=== PATIENT | male | born 1960 | race Caucasian/White ===

== ENCOUNTER 2017-12-22 09:00 | Inpatient (IN) | payer OTHER ==
--- NOTE | 2017-12-13 21:40 | HP ---
HISTORY AND PHYSICAL: DATE OF ADMISSION/SURGERY: 12/22/17 DATE OF OFFICE VISIT: 12/12/17 SURGEON: Kelly Turner MD * (DICTATED BY MARIXA HAWK) PROCEDURE: Right total hip arthroplasty. CHIEF COMPLAINT: Right hip pain. HISTORY OF PRESENT ILLNESS: Mr. Yung is a 57-year-old gentleman with complaints of right hip pain. He has failed conservative treatment and elected to proceed with a right total hip arthroplasty. PAST MEDICAL HISTORY: High cholesterol, hypertension, sleep apnea, and a history of foot drop. PAST SURGICAL HISTORY: ORIF of the right hip, tonsillectomy, muscle transfer to the right foot, skull fracture repair. CURRENT MEDICATIONS: 1. Hydrochlorothiazide 25 mg daily. 2. Metoprolol 50 mg daily. 3. Irbesartan 150 mg daily. 4. Omeprazole 20 mg daily. ALLERGIES: No known drug allergies. FAMILY HISTORY: Coronary artery disease, COPD, and stroke. SOCIAL HISTORY: This 57-year-old lives with his . He does not smoke or use drugs. He does report approximately 6 beers a day. REVIEW OF SYSTEMS: A complete 14-point review of systems was reviewed with the patient. It was all negative or noncontributory. PHYSICAL EXAMINATION GENERAL: He is well developed, well nourished, in no acute distress. VITAL SIGNS: He stands 5 feet 11 inches tall, weighs 259 pounds. His blood pressure is 128/72, his heart rate is 80. HEENT: Normocephalic, atraumatic. NECK: Supple. No palpable lymph nodes. PULMONARY: His lungs are clear to auscultation. CARDIO: Regular rate and rhythm. Strong S1, S2. ABDOMEN: Soft, nontender, nondistended. NEUROLOGICAL: He is alert and oriented x3. MUSCULOSKELETAL: Right lower extremity, the skin is intact. There are no open wounds or abrasions. He walks with an antalgic type gait favoring his right hip. He has decreased internal and external rotation of the right hip. He has a 2+ dorsalis pedis pulse. Intact sensation. He actually has 4/5 strength of his right ankle dorsiflexion. He has a history of a foot drop. ASSESSMENT AND PLAN: Mr. Yung is a 57-year-old gentleman with continued complaints of right hip pain. He has failed conservative treatment and elected to proceed with a right total hip arthroplasty. Surgery is scheduled for 12/22/[address] Turner discussed the risks and benefits of the surgery at today's visit and all of his questions were answered. He will follow up with Dr. Turner in 2 weeks after the surgery. MARIXA HAWK [id number]/[facility] #: [id number] JERZY
--- NOTE | 2018-04-14 18:31 | HP ---
HISTORY AND PHYSICAL: DATE OF ADMISSION/SURGERY: 04/25/18 DATE OF OFFICE VISIT: 04/14/18 SURGEON: Kelly Turner MD * (DICTATED BY MARIXA HAWK) PROCEDURE: Right total hip arthroplasty. CHIEF COMPLAINT: Right hip pain. HISTORY OF PRESENT ILLNESS: Mr. Yung is a 57-year-old gentleman with posttraumatic arthritis of the right hip. He has failed conservative treatment and elected to proceed with a right total hip arthroplasty. PAST MEDICAL HISTORY: Hypertension, sleep apnea, high cholesterol, and coronary artery disease. PAST SURGICAL HISTORY: Right hip ORIF, tonsillectomy, muscle transfer to the right foot, and surgery for skull fracture. CURRENT MEDICATIONS: 1. Metoprolol 50 mg daily. 2. Omeprazole 20 mg daily. 3. Avapro 150 mg daily. 4. Hydrochlorothiazide 50 mg 2 tabs daily. 5. Cinnamon. 6. Pravastatin sodium 40 mg daily. ALLERGIES: No known drug allergies. FAMILY HISTORY: COPD, stroke, and coronary artery disease. SOCIAL HISTORY: He is a 57-year-old gentleman, lives with his . He does not smoke or use drugs. Uses occasional alcohol. REVIEW OF SYSTEMS: A complete 14-point review of systems was reviewed with the patient. It was positive for GERD. He denies history of DVT, PE, hepatitis, HIV , or anesthesia problems. PHYSICAL EXAMINATION GENERAL: He is well developed, well nourished, in no acute distress. VITAL SIGNS: He stands 71 inches tall, weighs 251 pounds. His blood pressure is 120/68 and his heart rate is 96. HEENT: Normocephalic, atraumatic. NECK: Supple. No palpable lymph nodes. PULMONARY: The lungs are clear to auscultation bilaterally. CARDIO: Regular rate and rhythm. Strong S1, S2. ABDOMEN: Soft, nontender, nondistended. NEUROLOGICAL: He is alert and oriented x3. MUSCULOSKELETAL: Right lower extremity: The skin is intact. There are no open wounds or abrasions. He walks with an antalgic-type gait favoring his right hip. He has decreased internal and external rotation of the right hip. 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 He has a 2+ dorsalis pedis pulse. ASSESSMENT AND PLAN: Mr. Yung is a 57-year-old gentleman with posttraumatic arthritis of the right hip. He has failed conservative treatment and elected to proceed with a right total hip arthroplasty. The surgery is scheduled for 04/25/[address] Turner discussed the risks and benefits of the surgery at today's visit and all of his questions were answered. He will follow up with Dr. Turner 2 weeks after the surgery. MARIXA HAWK [id number]/[facility] #: [id number] MTDMolina
[2018-04-24] MEDS ORDERED: Buffered Lidocaine 1% SYRIN* 1 ML/SYRINGE INTRADERM ONE (12:06)
[2018-04-25] MEDS ORDERED: Acetaminophen IV 1GM/100ML * 1,000 MG/100 ML VIAL IVPB ONE (06:00)
[2018-04-25] MEDS ORDERED: celeCOXIB CAP* 200 MG PO ONE (06:00)
[2018-04-25] MEDS ORDERED: Lactated Ringers 1000 ML Bag* 1,000 ML IV SCH (06:00)
[2018-04-25] MEDS ORDERED: Gabapentin CAP(*) 300 MG PO ONE (06:00)
[2018-04-25] MEDS ORDERED: Dexamethasone IV* 4 MG/ML 1 ML (4 MG) IV SLOW PU ONE (06:00)
--- OUTSIDE RECORDS SUMMARY | 2018-04-25 10:13 | XMS REPORT | Continuity of Care Document ---
:1960 External Reference #:[id number] Author Name Queenie Thompson Care Team Providers Name Role Phone Julissa Lee MD Primary Care Physician Unavailable Payers Type Date Identification Numbers Payment Provider Subscriber Policy Number: [id number] [facility] Zeb Yung PayID: [id number] [address] [place] [address] Advance Directives Description No Information Available Problems Date Description Provider Status Onset: 08/08/2014 Hypersomnia with sleep apnea Bryon Snowden M.D. Active Onset: 09/18/2014 Obstructive sleep apnea syndrome Inna Styles DNP, RN, Active [facility]- Onset: 10/31/2017 Localized, primary osteoarthritis Kelly Turner M.D. Active Onset: 10/31/2017 Acquired genu valgum Kelly Turner M.D. Active Onset: 10/31/2017 Localized, primary osteoarthritis Kelly Turner M.D. 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 Cigarette Use Quit 21 Years Ago Tobacco Use Start: Unknown Chewing tobacco after stopped smoking ; chewed for 8 years Smoking Status Reviewed: 04/14/18 Chewing tobacco after stopped smoking ; chewed for 8 years ETOH Use Occasionally consumes 4-5 times a week alcohol Tobacco Use Start: Unknown End: Patient is a former Unknown smoker Exercise Type/Frequency Exercises sporadically Allergies, Adverse Reactions, Alerts Description No Known Drug Allergies Medications Medication Date Status Form Strength Qnty SIG Indications Ordering Provider Metoprolol Succinate 12/23 Active Tablet 50mg 1 tab by Unknown mouth daily Omeprazole 12/23 Active Tablet 20mg 1 tab by mouth daily Avapro Active Tablets 150mg 1 tab by Unknown /0000 mouth daily Hydrochlorothiazide Active Tablets 50mg 2 by Unknown /0000 mouth every day Cinnamon Active Capsules 1000mg 1 capsule Unknown /0000 by mouth daily C Pap Active wears Unknown /0000 nightly Pravastatin Sodium Active Tablets 40mg 1 tab hs Jesus, / Julissa Chaudhry MD Compression 02/07 Hx Misc Wear M17.11 Jean-Claude Stockings during Drew, - the day, M.D. 12/21 remove at night Hydrochlorothiazide 12/23 Hx 25mg as Unknown directed - 12/20 Irbesartan 12/23 Hx 150mg as directed - 12/20 Aspirin 12/23 Hx 325mg every day by mouth - 10/30 Cinnamon 12/23 Hx 1000mg every day by mouth - 10/30 Flax Seed Oil 12/23 Hx 1400mg every day by mouth - 10/30 Vitamin D-3 12/23 Hx 2000mg every day by mouth - 09/14 Naproxen 02/13 Hx Tablets 500mg 40tab 1 tablet s with food Johnny, - po bid M.D. 09/14 Aspirin Hx Tablets 325mg take 1 by Unknown /0000 mouth - daily 12/21 Pravastatin Sodium Hx Tablets 20mg take one Unknown /0000 tablet by - mouth at 12/21 bedtime Medications Administered in Office Medication Date Status Form Strength Qnty SIG Indications Ordering Provider Depomedrol Administered Injection Kelly 40MG 018 Tommy Turner Depomedrol Administered Injection Kelly 80MG 015 Tommy Turner Influenza Administered Injection Unknown Virus Vaccine 014 Depomedrol Administered Injection Kelly 80MG 013 Tommy Turner Immunizations Description No Information Available Vital Signs Date Vital Result Comment 04/14/2018 10:40am Height 71 inches 5'11" Weight 257.00 lb Heart Rate 96 /min BP Systolic 128 mmHg BP Diastolic 68 mmHg Respiratory Rate 16 /min Body Temperature 98.3 F Pain Level 2 BMI (Body Mass Index) 35.8 kg/m2 04/10/2018 10:13am Height 71 inches 5'11" Weight 260.00 lb BP Systolic 138 mmHg BP Diastolic 80 mmHg Pain Level 3 BMI (Body Mass Index) 36.3 kg/m2 03/27/2018 9:24am Height 71 inches 5'11" Weight 257.00 lb Heart Rate 100 /min BP Systolic Sitting 116 mmHg BP Diastolic Sitting 80 mmHg Respiratory Rate 14 /min O2 % BldC Oximetry 93 % BMI (Body Mass Index) 35.8 kg/m2 03/03/2018 3:06pm Height 71 inches 5'11" Weight 263.00 lb BP Systolic 144 mmHg BP Diastolic 83 mmHg Respiratory Rate 16 /min Pain Level 8 BMI (Body Mass Index) 36.7 kg/m2 02/23/2018 2:42pm Height 71 inches 5'11" Weight 267.00 lb with shoes Heart Rate 80 /min BP Systolic Sitting 196 mmHg lue reg cuff BP Diastolic Sitting 98 mmHg lue reg cuff BP Systolic Standing 190 mmHg lue reg cuff BP Diastolic Standing 94 mmHg lue reg cuff BMI (Body Mass Index) 37.2 kg/m2 12/22/2017 3:05pm Height 71 inches 5'11" Weight 265.00 lb w/boots Heart Rate 70 /min BP Systolic Sitting 130 mmHg Lue lg cuff BP Diastolic Sitting 92 mmHg Lue lg cuff BMI (Body Mass Index) 37.0 kg/m2 Ejection Fraction 69% NLM 12/09/17 12/12/2017 9:08am Height 71 inches 5'11" Weight 259.00 lb Heart Rate 80 /min BP Systolic 128 mmHg BP Diastolic 72 mmHg BMI (Body Mass Index) 36.1 kg/m2 12/01/2017 9:03am Height 71 inches 5'11" Weight 261.50 lb Heart Rate 76 /min BP Systolic Sitting 164 mmHg Rue large cuff BP Diastolic Sitting 102 mmHg Rue large cuff Respiratory Rate 20 /min O2 % BldC Oximetry 94 % On Ra BMI (Body Mass Index) 36.5 kg/m2 11/07/2017 4:22pm Height 71 inches 5'11" Weight 265.00 lb Heart Rate 72 /min BP Systolic 154 mmHg BP Diastolic 90 mmHg BMI (Body Mass Index) 37.0 kg/m2 10/31/2017 3:24pm Height 71.5 inches 5'11.50" Weight 268.00 lb Heart Rate 72 /min BP Systolic 140 mmHg BP Diastolic 84 mmHg BMI (Body Mass Index) 36.9 kg/m2 09/15/2016 3:43pm Height 72 inches 6'0" Heart Rate 84 /min BP Systolic Sitting 130 mmHg BP Diastolic Sitting 90 mmHg Respiratory Rate 16 /min Pain Level 0 O2 % BldC Oximetry 96 % 08/05/2015 3:29pm Height 72 inches 6'0" Weight 274.00 lb Heart Rate 79 /min BP Systolic Sitting 142 mmHg BP Diastolic Sitting 82 mmHg Respiratory Rate 16 /min O2 % BldC Oximetry 97 % BMI (Body Mass Index) 37.2 kg/m2 03/17/2015 10:24am Height 72 inches 6'0" Weight 278.00 lb Pain Level 3 BMI (Body Mass Index) 37.7 kg/m2 02/07/2015 2:38pm Height 72 inches 6'0" Weight 278.00 lb Heart Rate 69 /min BP Systolic 137 mmHg BP Diastolic 81 mmHg Pain Level 6 BMI (Body Mass Index) 37.7 kg/m2 02/04/2015 3:23pm Height 72 inches 6'0" Heart Rate 78 /min BP Systolic 138 mmHg BP Diastolic 74 mmHg Respiratory Rate 14 /min O2 % BldC Oximetry 98 % 12/24/2014 3:06pm Height 72 inches 6'0" Weight 278.00 lb Heart Rate 82 /min BP Systolic Sitting 142 mmHg BP Diastolic Sitting 82 mmHg Respiratory Rate 20 /min O2 % BldC Oximetry 97 % BMI (Body Mass Index) 37.7 kg/m2 08/08/2014 3:21pm Height 72 inches 6'0" Weight 284.12 lb Heart Rate 74 /min BP Systolic Sitting 150 mmHg BP Diastolic Sitting 98 mmHg Body Temperature 98.9 F O2 % BldC Oximetry 97 % BMI (Body Mass Index) 38.5 kg/m2 Neck Circumference in inches 18.5 Results Test Date Facility Test Result H/L Range Note Urine Culture And 04/04/2018 [facility] Urine Culture SEE RESULT [address] [place] [address] [phone] Type & Screen 12/12/2017 [facility] Patient Blood O Negative [address] Type [place]THA [place]olson [id number] [phone] Antibody Screen NEGATIVE 1 SEE RESULT BELOW Name: ZEB YUNG : [address]: Julissa Lee MD Acct: [id number] Unit: [id number] AGE: 57 Location: [facility] Re04/04/18 SEX: M Status: REG REF SPEC: [id number] YOON: 04/04/18-1550 [facility] DR: Julissa Lee MD REQ: [id number] RECD: 04/04/18 STATUS: COMP [facility] DR: Kelly Turner MD _ SOURCE: URINE SPDESC: ORDERED: Urine Culture COMMENTS: [id number] ferrer top urine vacutainer Copy Result to: Kelly TURNER ([id number]) Urine Source: Clean Catch Procedure Result Reported Site Urine Culture Final 04/05/18- 1630 ML No Growth (<1,000 CFU/mL) * ML - Main Lab . END OF REPORT DEPARTMENT OF PATHOLOGY, [address] [place] [address] Aristeo Saab M.D. Director [facility] # [id number] 2 PAIN IN RIGHT HIP, BILATERAL PRIMARY OSTEOARTHRITI Procedures Date Code Description Status 01/16/2018 07702 ECHO Transthoracic, Real-Time 2D With Doppler And Color Completed Flow 01/16/2018 69559 ECHO Transthoracic, Real-Time 2D With Doppler And Color Completed Flow 12/22/2017 37186 EKG Tracing & Interpretation Completed 12/09/2017 05741 Treadmill Interp/Report Only Completed 12/09/2017 72446 Stress Test Supervsn W/Out I/R Completed 10/31/201779367 Inject/Drain Joint/Bursa Major W/O US Completed 02/07/201529131 Inject/Drain Joint/Bursa Major W/O US Completed 09/18/2014 64117 Polysomnography Sleep Staging 4+ Parameters W/Cpap Completed 03/23/2013 91173 Rad Exam; Hip Unilat Comp Completed 03/23/2013 36944 Rad Exam; Pelvis Completed 02/13/2013 32960 Rad Exam; Knee Comp Completed 02/13/2013 00405 Rad Exam; Knee Comp Completed 02/13/2013 64033 Xray Knee 3 Views Completed 02/13/2013 56763 Xray Knee 3 Views Completed 02/13/2013 41314 Inject/Drain Joint/Bursa Major W/O US Completed Encounters Type Date Location Provider Dx Diagnosis Office Visit 04/10/2018 Orthopedic Tere Pearce, D21.11 [place] neoplm of 10:00a Services Of AndreyAForest Yusuf. connctv/soft tiss of r upper limb, inc shldr R22.31 Localized swelling, mass and lump, right upper limb Office Visit 03/27/2018 Pulmonology And Inna G47.33 Obstructive sleep 9:30a Sleep Services Of SERA Styles, SHANNON, apnea (adult) [facility] JAGDEEP-BC (pediatric) Z68.35 Body mass index (BMI) 35.0-35.9, adult Office Visit 03/03/2018 3:00p Orthopedic Services Kelly Turner, M25.551 Pain in right Of C.M.A. M.D. hip M16.51 Unilateral post-traumatic osteoarthritis, right hip Office Visit 02/23/2018 3:00p Rosie Ton S. E66.9 Obesity, Cardiology Of Tommy Cervantes unspecified Melissa G47.33 Obstructive sleep apnea (adult) (pediatric) I10 Essential (primary) hypertension Z01.810 Encounter for preprocedural cardiovascular examination I25.10 Athscl heart disease of [place] coronary artery w/o ang pctrs I77.819 Aortic ectasia, unspecified site M16.0 Bilateral primary osteoarthritis of hip E78.5 Hyperlipidemia, unspecified Office Visit 12/22/2017 3:40p [facility] Ton S. I10 Essential Tommy Cervantes (primary) hypertension R94.31 Abnormal electrocardiogram [ECG] [EKG] E78.4 Other hyperlipidemia E66.9 Obesity, unspecified G47.33 Obstructive sleep apnea (adult) (pediatric) Z01.810 Encounter for preprocedural cardiovascular examination Office Visit 12/01/2017 Pulmonology And Inna G47.33 Obstructive sleep 9:30a Sleep Services Of SERA Styles RN, apnea (adult) [facility] JAGDEEP-BC (pediatric) I10 Essential (primary) hypertension Z68.36 Body mass index (BMI) 36.0-36.9, adult Office Visit 11/07/2017 3:45p Orthopedic Kelly M17.0 Bilateral primary Services Of Tommy Turner osteoarthritis of C.M.A. knee M25.551 Pain in right hip M21.061 Valgus deformity, not elsewhere classified, right knee M16.0 Bilateral primary osteoarthritis of hip M16.51 Unilateral post-traumatic osteoarthritis, right hip Office Visit 10/31/2017 2:45p Orthopedic Services Kelly Turner, M25.562 Pain in left Of C.M.A. M.D. knee M25.561 Pain in right knee M25.462 Effusion, left knee M25.461 Effusion, right knee M17.0 Bilateral primary osteoarthritis of knee M21.061 Valgus deformity, not elsewhere classified, right knee M25.551 Pain in right hip M25.552 Pain in left hip M16.0 Bilateral primary osteoarthritis of hip M16.51 Unilateral post-traumatic osteoarthritis, right hip M16.12 Unilateral primary osteoarthritis, left hip M17.12 Unilateral primary osteoarthritis, left knee Office Visit 09/15/2016 Pulmonology And Inna G47.33 Obstructive sleep 3:30p Sleep Services Of SERA Styles RN, apnea (adult) [facility] JAGDEEP-BC (pediatric) Office Visit 08/05/2015 Pulmonology And Inna G47.33 Obstructive sleep 3:30p Sleep Services Of SERA Styles RN, apnea (adult) [facility] JAGDEEP-BC (pediatric) Office Visit 03/17/2015 Orthopedic Kelly Turner, M17.11 Unilateral 10:30a Services Of Tommy primary C.M.AForest osteoarthritis, right knee 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 knee M12.551 Traumatic arthropathy, right hip Office Visit 02/04/2015 Pulmonology And Inna G47.33 Obstructive sleep 3:30p Sleep Services Of SERA Styles apnea (adult) Melissa ORTEGA, JAGDEEP-BC (pediatric) Office Visit 12/24/2014 Pulmonology And Inna G47.33 Obstructive sleep 3:15p Sleep Services Of SERA Styles, apnea (adult) Elastic Attacher Coverstitch RN, JAGDEEP-BC (pediatric) Office Visit 08/08/2014 Pulmonology And Bryon SK. 780.53 Hypersomnia W/ 3:30p Sleep Services Of Tommy Snowden Sleep Apnea Elastic Attacher Coverstitch Unspecified Office Visit 03/23/2013 Orthopedic Kelly Turner, 715.16 Osteoarthrosis 9:30a Services Of Tommy Localized Prim C.M.A. Lower Leg 715.95 Osteoarthrosis Unspec Genlzd Or Localized Pelvic & Thigh Office Visit 02/13/2013 9:30a Orthopedic Kelly 715.16 Osteoarthrosis Services Of Tommy Turner Localized Prim Lower C.M.A. Leg Plan of Treatment Future Appointment(s):05/08/2018 2:15 pm - Kelly Turner M.D. at [facility]opedic [facility]04/25/2018 2:00 pm - Ziggy Bowens PA-C at [facility]04/25/2018 2:00 pm - MARIXA Valencia at [facility]04/25/2018 2:00 pm - Kelly Turner M.D. at [facility]05/31/2018 3:00 pm - Inna Styles DNP, RN, DIRECTOR LOAN-BC at Pulmonology And [facility]04/14/2018 - Kelly Turner M.D.M25.551 Pain in right hipFollow up:Follow up: 2 weeks after fposvxjP24.51 Unilateral post-traumatic osteoarthritis, right hip
--- OUTSIDE RECORDS SUMMARY | 2018-04-25 10:13 | XMS REPORT | Continuity of Care Document ---
:1960 External Reference #:[id number] Author Name Katelin Zabala Care Team Providers Name Role Phone Julissa Lee MD Primary Care Physician Unavailable Payers Type Date Identification Numbers Payment Provider Subscriber Policy Number: [id number] Lt[employer], Located Within [facility] Zeb Yung PayID: [id number] [address] [place] [address] Advance Directives Description No Information Available Problems Date Description Provider Status Onset: 08/08/2014 Hypersomnia with sleep apnea Bryon Snowden M.D. 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 Cigarette Use Quit 21 Years Ago Tobacco Use Start: Unknown Chewing tobacco after stopped smoking ; chewed for 8 years Smoking Status Reviewed: 04/10/18 Chewing tobacco after stopped smoking ; chewed [...] Available Vital Signs Date Vital Result Comment 04/10/2018 10:13am Height 71 inches 5'11" Weight [...] H/L Range Note Urine Culture And 04/04/2018 [facility] Urine Culture SEE RESULT [address] [place] [address] [phone] Type & Screen 12/12/2017 [facility] Patient Blood O Negative [address] [place] [address] [phone] Antibody Screen NEGATIVE 1 SEE RESULT BELOW Name: ZEB YUNG : [address]: Julissa Lee MD Acct: [id number] Unit: [id number] AGE: 57 Location: [facility] Re04/04/18 SEX: M Status: REG REF SPEC: [id number] YOON: 04/04/18 [facility] DR: Julissa Lee MD REQ: [id number] RECD: 04/04/18 STATUS: MIKAELA JOHNSON DR: Kelly Turner MD _ SOURCE: URINE [facility]: ORDERED: Urine Culture COMMENTS: [id number] ferrer top urine vacutainer Copy Result to: Kelly TURNER ([id number]) Urine Source: Clean Catch Procedure Result Reported Site Urine Culture Final 04/05/18- 1630 ML No Growth (<1,000 CFU/mL) * ML - Main Lab . END OF REPORT DEPARTMENT OF PATHOLOGY, [address] [place] [address] Aristeo Saab M.D. Director [facility] # [id number] 2 PAIN IN RIGHT HIP, BILATERAL PRIMARY OSTEOARTHRITI Procedures Date Code Description Status 01/16/2018 03269 ECHO Transthoracic, Real-Time 2D With Doppler And Color Completed Flow 01/16/2018 87823 ECHO Transthoracic, Real-Time 2D With Doppler And Color Completed Flow 12/22/2017 82151 EKG Tracing & Interpretation Completed 12/09/2017 74405 Treadmill Interp/Report Only Completed 12/09/2017 64842 Stress Test Supervsn W/Out I/R Completed 10/31/201714944 Inject/Drain Joint/Bursa Major W/O US Completed 02/07/201550159 Inject/Drain Joint/Bursa Major W/O US Completed 09/18/2014 35764 Polysomnography Sleep Staging 4+ Parameters W/Cpap Completed 03/23/2013 95261 Rad Exam; Hip Unilat Comp Completed 03/23/2013 33825 Rad Exam; Pelvis Completed 02/13/2013 88958 Rad Exam; Knee Comp Completed 02/13/2013 29732 Rad Exam; Knee Comp Completed 02/13/2013 51989 Xray Knee 3 Views Completed 02/13/2013 31431 Xray Knee 3 Views Completed 02/13/2013 19122 Inject/Drain Joint/Bursa Major W/O US Completed Encounters Type Date Location Provider Dx Diagnosis Office Visit 03/27/2018 Pulmonology And Inna Styles, G47.33 Obstructive sleep 9:30a [facility] RN, [facility]- apnea (adult) [facility] (pediatric) Z68.35 Body mass index (BMI) 35.0-35.9, adult Office Visit 03/03/2018 3:00p [facility] Kelly Turner, M25.551 Pain in right Of [facility] M.D. 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 E66.9 Obesity, Cardiology Of Tommy Cervantes unspecified [facility] G47.33 Obstructive sleep apnea (adult) (pediatric) I10 Essential (primary) hypertension Z01.810 Encounter for preprocedural cardiovascular examination I25.10 Athscl heart disease of [place] coronary artery w/o ang pctrs I77.819 Aortic ectasia, unspecified site M16.0 Bilateral primary osteoarthritis of hip E78.5 Hyperlipidemia, unspecified Office Visit 12/22/2017 3:40p [facility] [place] S. I10 Essential Tommy Cervantes (primary) hypertension R94.31 Abnormal electrocardiogram [ECG] [EKG] E78.4 Other hyperlipidemia E66.9 Obesity, unspecified G47.33 Obstructive sleep apnea (adult) (pediatric) Z01.810 Encounter for preprocedural cardiovascular examination Office Visit 12/01/2017 Pulmonology And Inna G47.33 Obstructive sleep 9:30a [facility] Styles RN, apnea (adult) [facility]- (pediatric) I10 Essential (primary) hypertension Z68.36 Body mass index (BMI) 36.0-36.9, adult Office Visit 11/07/2017 3:45p Orthopedic Kelly M17.0 Bilateral primary Services Of Tommy Turner osteoarthritis of [facility]. 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 M.D. [...] Services Of [facility] Styles RN, apnea (adult) [facility] JAGDEEP-JUSTIN (pediatric) Office Visit 08/05/2015 Pulmonology And Inna G47.33 Obstructive sleep 3:30p [facility] Styles RN, apnea (adult) [facility] JAGDEEP-JUSTIN (pediatric) Office Visit 03/17/2015 Orthopedic Kelly Turner, M17.11 Unilateral 10:30a Services Of Tommy primary C.M.A. 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 780.53 Hypersomnia W/ 3:30p [facility] Snowden Sleep Apnea [facility] Unspecified Office Visit 03/23/2013 Orthopedic Kelly Turner, 715.16 Osteoarthrosis 9:30a Services Of Tommy Localized Prim C.M.A. Lower Leg 715.95 Osteoarthrosis Unspec Genlzd Or Localized Pelvic & Thigh Office Visit 02/13/2013 9:30a Orthopedic Kelly 715.16 Osteoarthrosis Services Of Tommy Turner Localized Prim Lower C.M.A. Leg Plan of Treatment Future Appointment(s):04/25/2018 2:00 pm - Ziggy Bowens PA-C at [facility]04/25/2018 2:00 pm - MARIXA Valencia at [facility]04/25/2018 2:00 pm - Kelly Turner M.D. at [facility]04/14/2018 9:45 am - Kelly Turner M.D. at [facility]05/31/2018 3:00 pm - Inna Styles DNP, RN, MAINTENANCE MACHINE REPAIRER-BC at [facility]04/10/2018 - Tere Pearce M.D.D21.11 Benign neoplasm of connective and other soft tissue of rightFollow up:Follow up : As needed
--- OUTSIDE RECORDS SUMMARY | 2018-04-25 10:14 | XMS REPORT ---
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 Active Onset: 05/03/2011 Essential hypertension Taylor Payton M.D. Active Onset: 05/03/2011 Obesity Taylor Payton M.D. Active Onset: 07/06/2011 Impaired fasting glycaemia Taylor Payton M.D. Active Onset: 07/06/2011 Hyperlipidemia Taylor Payton M.D. Active Onset: 03/02/2018 Other hyperlipidemia Julissa Lee M.D. Active Onset: 10/13/2017 Peripheral venous insufficiency Julissa Lee M.D. Active Family History Date Family Member(s) Problem(s) Comments Father due to [place] () - at age 66 Children None First Brother Hypertension First Brother 54 First Sister IBS? lives in [place]. First Sister 50 Paternal Grandfather due to Stroke () Social History Type Date Description Comments Marital Status Has been 1 time Lives With Spouse Sleep Typically sleeps 6 hours a night Occupation [employer] Cigarette Use Former Cigarette Smoker 1 quit at age 23 Pack Daily ETOH Use Currently consumes alcohol a Case of beer a week. (24) Less now 06/09/2013. Drinking less during the week. now drinking 6-12 a week. still at 6-12 beer 07/15/15. Now only 2 a week 03/2018. Smoking Patient is a former smoker Daily Caffeine Consumes on average 2 cups of black. coffee per day Exercise Type/Frequency Exercises regularly 4-5 days a week on the elliptical and free weights. Started Yoga. Allergies, Adverse Reactions, Alerts Date Description Reaction Status Severity Comments 05/03/2011 NKDA active Medications Medication Date Status Form Strength Qnty SIG Indications Ordering Provider Pravastatin Sodium 03/02/ Active Tablets 40mg 30tabs take one Julissa L. 2017 tablet Jesus, by mouth M.D. at bedtime Avapro 07/13/ Active Tablets 150mg 90tabs take 1 Julissa L. 2012 tablet Jesus, by mouth M.D. every day Hydrochlorothiazide 03/24/ Active Tablets 25mg 180tab take 2 I10 Julissa L. 2011 s tablet Jesus, by mouth M.D. every day R60.0 Metoprolol Succinate 05/03/2011 Active Tablets ER 50mg 90tabs take 1 Julissa L. ER 24HR tablet by Jesus, mouth M.D. every day Omeprazole 05/03/[address] 20mg 90caps take 1 Julissa L. capsule Jesus, by mouth M.D. every day Pravastatin Sodium 12/03/2017 - Hx Tablets 20mg 90tabs 1 by Julissa L. 03/02/2018 mouth Jesus, every day M.D. Ketoconazole 06/21/2016 - Hx Cream 2% 45gm apply B Julissa L. 03/17/2017 thin 3 Jesus, layer 5 M.D. twice a . day to 4 right knee and bottow of left foot Altabax 06/21/2016 - Hx Ointment 1% 15gm apply I Julissa L. 03/17/2017 twice 8 Jesus, daily to 7 M.D. front of . left leg 2 for up to 1 week. Circ-Aid Compression 04/20/2016 - Hx use as R Julissa Chaudhry Wraps 03/17/2017 directed. 6 Jesus, 0 M.D. . 0 Ketoconazole 04/08/2016 - Hx Shampoo 2% 120ml soak B Xochitl 03/17/2017 feet in 2 3 Amanda, tsp in 5 STONE SPLITTER warm . water 3 daily Ketoconazole 04/03/2016 - Hx Cream 2% 60gm apply B Xochitl 03/17/2017 every day 3 Amanda, -bid to 5 STONE SPLITTER affected . area 3 Cephalexin 04/03/2016 - Hx Capsules 500mg 42caps 1 po tid L Xochitl 04/19/2016 x 14days 0 Amanda, 3 STONE SPLITTER . 1 1 6 Tramadol HCL 04/03/2016 - Hx Tablets 50mg 60tabs 2 every L Xochitl 03/17/2017 12h as 0 Amanda, needed 3 STONE SPLITTER pain . 1 1 6 Cephalexin 10/23/2012 - Hx Capsules 500mg 21caps 1 po tid E Nguyen 12/08/2012 x 7 days 9 Brown, TIRE MAN 0 6 . 4 Nasonex 09/07/2012 - Hx Suspension 50mcg 17g 1 spray 9 Julissa Chaudhry 09/09/2014 /Act each 9 thuy Lee 5 M.DForest twice . daily 3 3 month supply Avapro 04/03/2012 - Hx Tablets 75mg 90tabs 1 po qd Julissa Chaudhry 07/13/2012 Tommy Lee Nasonex 11/30/2011 - Hx Suspension 50mcg 3mos 2 sprays Leann 07/13/2012 /Act each thuy Zavala Afnp-C qd Hydrochlorothiazide 05/03/2011 - Hx Capsules 12.5m 1 po qd Family 05/03/2011 [facility] Aspirin 05/03/2011 - Hx Tablets 325mg 1 po qd Family 04/04/2018 [facility] Lisinopril 05/03/2011 - Hx Tablets 20mg 90tabs 1 po qd Taylor Miller 07/13/2012 Tommy Payton Immunizations CPT Code Status Date Vaccine Lot # [id number] Given 07/13/2012 Tdap Tetanus, W Pertussis [id number] Vital Signs Date Vital Result Comment 04/04/2018 BP Systolic 128 mmHg BP Diastolic 86 mmHg Heart Rate 97 /min Body Temperature 97.3 F Respiratory Rate 16 /min O2 % BldC Oximetry 96 % Height 71 inches 5'11" Weight 255.00 lb BMI (Body Mass Index) 35.6 kg/m2 03/02/2018 BP Systolic 142 mmHg BP Diastolic 86 mmHg Heart Rate 80 /min Body Temperature 98.9 F Respiratory Rate 17 /min Height 71 inches 5'11" Weight 263.00 lb BMI (Body Mass Index) 36.7 kg/m2 12/03/2017 BP Systolic 136 mmHg BP Diastolic 86 mmHg Heart Rate 70 /min Body Temperature 98.6 F Respiratory Rate 17 /min Height 71 inches 5'11" Weight 261.38 lb BMI (Body Mass Index) 36.5 kg/m2 10/13/2017 BP Systolic 124 mmHg BP Diastolic 80 mmHg Heart Rate 80 /min Body Temperature 98.0 F Respiratory Rate 18 /min Height 71 inches 5'11" Weight 263.00 lb BMI (Body Mass Index) 36.7 kg/m2 03/18/2017 BP Systolic 130 mmHg BP Diastolic 80 mmHg Heart Rate 78 /min Body Temperature 97.9 F Respiratory Rate 16 /min Height 70.5 inches 5'10.50" Weight 279.00 lb BMI (Body Mass Index) 39.5 kg/m2 07/10/2016 BP Systolic 160 mmHg BP Diastolic 80 mmHg Heart Rate 72 /min Body Temperature 99.0 F Respiratory Rate 16 /min Height 70.5 inches 5'10.50" Weight 283.12 lb BMI (Body Mass Index) 40.0 kg/m2 06/21/2016 BP Systolic 154 mmHg BP Diastolic 86 mmHg BP Systolic Recheck 140 mmHg BP Diastolic Recheck 80 mmHg Heart Rate 90 /min Body Temperature 99.3 F Respiratory Rate 16 /min Height 70.5 inches 5'10.50" Weight 280.12 lb BMI (Body Mass Index) 39.6 kg/m2 04/24/2016 BP Systolic 124 mmHg BP Diastolic 70 mmHg Heart Rate 78 /min Respiratory Rate 16 /min Height 70.5 inches 5'10.50" Weight 281.00 lb BMI (Body Mass Index) 39.7 kg/m2 04/20/2016 BP Systolic 130 mmHg BP Diastolic 82 mmHg Heart Rate 72 /min Body Temperature 97.5 F Height 70.5 inches 5'10.50" Weight 282.25 lb BMI (Body Mass Index) 39.9 kg/m2 04/08/2016 BP Systolic 130 mmHg BP Diastolic 78 mmHg Heart Rate 76 /min Body Temperature 98.0 F Respiratory Rate 18 /min Height 70.5 inches 5'10.50" 04/03/2016 BP Systolic 120 mmHg BP Diastolic 80 mmHg Heart Rate 72 /min Body Temperature 97.9 F Respiratory Rate 18 /min Height 70.5 inches 5'10.50" Weight 285.00 lb BMI (Body Mass Index) 40.3 kg/m2 11/18/2015 BP Systolic 138 mmHg BP Diastolic 80 mmHg Heart Rate 68 /min Body Temperature 97.9 F Respiratory Rate 18 /min Height 70.5 inches 5'10.50" Weight 283.00 lb BMI (Body Mass Index) 40.0 kg/m2 07/15/2015 BP Systolic 128 mmHg BP Diastolic 80 mmHg Heart Rate 68 /min Body Temperature 98.1 F Respiratory Rate 18 /min Height 70.5 inches 5'10.50" Weight 276.00 lb BMI (Body Mass Index) 39.0 kg/m2 09/09/2014 BP Systolic 132 mmHg BP Diastolic 80 mmHg Heart Rate 80 /min Body Temperature 97.5 F Respiratory Rate 18 /min Height 71 inches 5'11" Weight 283.00 lb BMI (Body Mass Index) 39.5 kg/m2 08/29/2014 BP Systolic 126 mmHg BP Diastolic 80 mmHg Heart Rate 64 /min Body Temperature 98.4 F Respiratory Rate 18 /min Height 71 inches 5'11" Weight 278.00 lb BMI (Body Mass Index) 38.8 kg/m2 07/11/2014 BP Systolic 120 mmHg BP Diastolic 80 mmHg Heart Rate 80 /min Body Temperature 98.2 F Respiratory Rate 18 /min Height 71 inches 5'11" Weight 279.00 lb BMI (Body Mass Index) 38.9 kg/m2 11/09/2013 BP Systolic 130 mmHg BP Diastolic 80 mmHg Heart Rate 84 /min Body Temperature 97.9 F Height 71.5 inches 5'11.50" Weight 279.00 lb BMI (Body Mass Index) 38.4 kg/m2 06/07/2013 BP Systolic 138 mmHg BP Diastolic 80 mmHg Heart Rate 68 /min Body Temperature 98.1 F Respiratory Rate 18 /min Height 71.5 inches 5'11.50" Weight 273.38 lb BMI (Body Mass Index) 37.6 kg/m2 03/08/2013 BP Systolic 150 mmHg BP Diastolic 92 mmHg Heart Rate 64 /min Body Temperature 98.5 F Respiratory Rate 16 /min Height 71.5 inches 5'11.50" Weight 273.00 lb BMI (Body Mass Index) 37.5 kg/m2 02/09/2013 BP Systolic 134 mmHg BP Diastolic 70 mmHg Heart Rate 68 /min Body Temperature 98.9 F Respiratory Rate 18 /min Height 71.5 inches 5'11.50" Weight 277.00 lb BMI (Body Mass Index) 38.1 kg/m2 12/08/2012 BP Systolic 126 mmHg BP Diastolic 82 mmHg Heart Rate 72 /min Body Temperature 98.6 F Respiratory Rate 16 /min Height 71.5 inches 5'11.50" Weight 271.38 lb BMI (Body Mass Index) 37.3 kg/m2 10/23/2012 BP Systolic 152 mmHg BP Diastolic 92 mmHg Heart Rate 78 /min Body Temperature 99.3 F Height 71.5 inches 5'11.50" Weight 271.50 lb BMI (Body Mass Index) 37.3 kg/m2 09/07/2012 BP Systolic 140 mmHg BP Diastolic 80 mmHg Heart Rate 72 /min Body Temperature 98.5 F Respiratory Rate 18 /min Height 71.5 inches 5'11.50" Weight 273.00 lb BMI (Body Mass Index) 37.5 kg/m2 07/13/2012 BP Systolic 160 mmHg BP Diastolic 102 mmHg BP Systolic Recheck 130 mmHg BP Diastolic Recheck 90 mmHg Heart Rate 72 /min Body Temperature 98.1 F Respiratory Rate 16 /min Height 71.5 inches 5'11.50" Weight 271.00 lb BMI (Body Mass Index) 37.3 kg/m2 Right Visual Acuity Distance 20/20 Left Visual Acuity Distance 20/25 03/24/2012 BP Systolic 140 mmHg BP Diastolic 90 mmHg Heart Rate 72 /min Body Temperature 97.5 F Height 70.75 inches 5'10.75" measured Weight 272.00 lb BMI (Body Mass Index) 38.2 kg/m2 11/30/2011 BP Systolic 110 mmHg BP Diastolic 80 mmHg Heart Rate 72 /min Body Temperature 98.2 F Height 70.75 inches 5'10.75" measured Weight 268.00 lb BMI (Body Mass Index) 37.6 kg/m2 11/03/2011 BP Systolic 130 mmHg BP Diastolic 86 mmHg Heart Rate 60 /min Body Temperature 98.9 F Height 70.75 inches 5'10.75" measured Weight 263.00 lb BMI (Body Mass Index) 36.9 kg/m2 09/02/2011 BP Systolic 134 mmHg BP Diastolic 76 mmHg Heart Rate 60 /min Body Temperature 98.4 F Height 70.75 inches 5'10.75" measured Weight 259.00 lb BMI (Body Mass Index) 36.4 kg/m2 07/06/2011 BP Systolic 140 mmHg BP Diastolic 84 mmHg Heart Rate 72 /min Body Temperature 97.6 F Height 70.75 inches 5'10.75" measured Weight 265.00 lb BMI (Body Mass Index) 37.2 kg/m2 05/22/2011 BP Systolic 144 mmHg BP Diastolic 82 mmHg Heart Rate 66 /min Body Temperature 97.6 F Height 70.75 inches 5'10.75" measured Weight 256.00 lb BMI (Body Mass Index) 36.0 kg/m2 05/03/2011 BP Systolic 166 mmHg BP Diastolic 90 mmHg Heart Rate 72 /min Body Temperature 98.9 F Height 70.75 inches 5'10.75" measured Weight 258.00 lb BMI (Body Mass Index) 36.2 kg/m2 Results Test Date Test Result H/L Range Note Laboratory test finding 04/04/2018 Hemoglobin A1c ([facility]ma) 5.3% % 4.1-5.7 CBC Electronic ([facility] New) 04/04/2018 WBC 6.48 4.0-10.0 RBC 4.47 3.93-6.0 Hemoglobin (Fma/CMC/CTX) 14.7 g/dL 12.0-17.0 Hematocrit (Fma/CMC/CTX) 41.8 % 35.0-50.0 Mean Corpuscular Vol 93.5 fL 80-95 Mean Corpuscular Hemoglobin 32.9 pg High 25.6-32.2 Mean Corpuscular Hemo Concen 35.2 g/dL 32.2-36.0 Platelets 256 10^3/ul 163-400 RDW-CV 12.0 11.6-14.4 Mean Platelet Volume 9.5 fL 8.0-12.4 Absolute Neutrophils BLD 3.96 1.56-6.13 Absolute Lymphocytes 1.77 1.18-3.74 Absolute Monocytes BLD Auto 0.65 0.24-0.82 Absolute Eos Blood 0.03 Low 0.04-0.54 Absolute Basophils 0.04 0.01-0.08 Neutrophil % 61.1 % 34.0-70.0 Lymph% 27.3 % 20.0-52.0 Monocytes % 10.0 % 5.0-12.0 Eos % 0.5 % Low 0.7-7.0 Basophil% 0.6 % 0-1.2 Ua - Micro ([facility]) 04/04/2018 Appearance clear Color yellow Glucose, Urine (a/CMC/CTX) neg Bilirubin neg Ketones trace SP Grav >=1.030 Blood neg PH 5.5 Protein neg Urobil 0.2 Nitrite neg Leukocytes (Fma/CMC/Centrex) neg Hyaline 8-10 /Lpf Granular - /Lpf WBC (a,Centrex) 0-1 RBC - Mucus small amount /Lpf Epith - /Lpf Bacteria - /Hpf Amorphous - /Lpf Crystals, Fluid (a/CMC/CTX) - Z#Comments - Laboratory test finding 04/04/2018 Creatine Kinase <pending> 38-174 Ua - Micro ([facility]) 02/04/2018 Appearance clear Color yellow Glucose, Urine (a/CMC/CTX) negative Bilirubin negative Ketones trace SP Grav 1.015 Blood trace-lysed PH 5.5 Protein negative Urobil 0.2 Nitrite negative Leukocytes (Fma/CMC/Centrex) negative Hyaline - /Lpf Granular - /Lpf WBC (a,Centrex) - RBC 0-1 Mucus SM AMT /Lpf Epith - /Lpf Bacteria - /Hpf Amorphous - /Lpf Crystals, Fluid (Fma/CMC/CTX) - Z#Comments - CBC Electronic ([facility]) 02/04/2018 WBC 5.64 4.0-10.0 RBC 4.82 3.93-6.0 Hemoglobin (Fma/CMC/CTX) 15.7 g/dL 12.0-17.0 Hematocrit (a/CMC/CTX) 46.1 % 35.0-50.0 Mean Corpuscular Vol 95.6 fL High 80-95 Mean Corpuscular Hemoglobin 32.6 pg High 25.6-32.2 Mean Corpuscular Hemo Concen 34.1 g/dL 32.2-36.0 Platelets 182 10^3/ul 163-400 RDW-CV 12.3 11.6-14.4 Mean Platelet Volume 9.4 fL 8.0-12.4 Absolute Neutrophils BLD 3.65 1.56-6.13 Absolute Lymphocytes 1.19 1.18-3.74 Absolute Monocytes BLD Auto 0.64 0.24-0.82 Absolute Eos Blood 0.10 0.04-0.54 Absolute Basophils 0.03 0.01-0.08 Neutrophil % 64.8 % 34.0-70.0 Lymph% 21.1 % 20.0-52.0 Monocytes % 11.3 % 5.0-12.0 Eos % 1.8 % 0.7-7.0 Basophil% 0.5 % 0-1.2 Laboratory test finding 02/04/2018 CK 172 U/L 38-174 1 Lipid Profile 02/04/2018 Cholesterol 267 mg/dL High 120-200 Triglycerides 134 mg/dL 30-200 HDL Cholesterol 83 mg/dL High 30-70 LDL (Calculated) 157 CALC High 0-129 VLDL Cholesterol 27 mg/dL 0-50 HDL Risk Factor 3.2 CALC 0.0-4.4 Comprehensive Metabolic Prof 02/04/2018 Sodium 139 mEq/L 134-149 Potassium 3.9 mEq/L 3.6-5.5 Chloride 96 mEq/L 94-112 Carbon Dioxide 30 mEq/L 21-32 Glucose 104 mg/dL 70-105 BUN 13 mg/dL 6-26 Creatinine 1.0 mg/dL 0.6-1.4 BUN/Creat Ratio 13.0 CALC 8.0-36.0 Calcium 8.9 mg/dL 8.6-10.2 Total Protein 7.0 g/dL 6.4-8.3 Albumin 4.4 g/dL 3.8-5.5 Globulin 2.6 g/dL 2.0-4.8 A/G Ratio 1.7 CALC 0.6-2.3 Alk. Phosphatase 60 U/L 22-95 Alt (SGPT) 32 U/L 7-35 Ast (Sgot) 30 U/L 5-34 Total Bilirubin 1.1 mg/dL 0.2-1.3 GFR Non- >60 ml/min/1.73m^ >=60 GFR >60 ml/min/1.73m^ >=60 Type & Screen 12/12/2017 Patient Blood Type O Negative 2 Antibody Screen NEGATIVE 2 Comp Metabolic Panel 12/03/2017 Sodium 137 mmol/L 135-145 Potassium 4.0 mmol/L 3.5-5.0 Chloride 96 mmol/L Low 101-111 Co2 Carbon Dioxide 31 mmol/L 22-32 Anion Gap 10 mmol/L 2-11 Calcium 9.2 mg/dL 8.6-10.3 Albumin 4.0 g/dL 3.2-5.2 Total Bilirubin 1.30 mg/dL High 0.2-1.0 Glucose 106 mg/dL High 70-100 Blood Urea Nitrogen 16 mg/dL 6-24 Creatinine 0.97 mg/dL 0.67-1.17 BUN/Creatinine Ratio 16.5 8-20 Total Protein 6.9 g/dL 6.4-8.9 Globulin 2.9 g/dL 2-4 Albumin/Globulin Ratio 1.4 1-3 Alkaline Phosphatase 61 U/L 34-104 Alt 32 U/L 7-52 Ast 40 U/L High 13-39 Egfr Non- 80.1 >60 Egfr 96.9 >60 3 Lipid Profile (Trig/Chol/HDL) 12/03/2017 Triglycerides 168 mg/dL 4 Cholesterol 288 mg/dL 5 HDL Cholesterol 70.7 mg/dL 6 LDL Cholesterol 184 mg/dL 7 Inr/Protime 12/03/2017 Inr 0.86 0.77-1.02 Laboratory test finding 12/03/2017 Partial Thrombo 34.9 seconds 26.0- 36.3 8 Time PTT Urine Culture And 12/03/2017 Urine Culture SEE RESULT BELOW 9 Sensitivities Urinalysis Profile 12/03/2017 Urine Color Yellow Urine Appearance Clear Urine Specific [place] 1.017 1.010-1.030 Urine pH 5.0 5-9 Urine Urobilinogen Negative Negative Urine Ketones Negative Negative Urine Protein Negative Negative Urine Leukocytes Negative Negative Urine Blood Negative Negative Urine Nitrite Negative Negative Urine Bilirubin Negative Negative Urine Glucose Negative Negative Urine White Blood Cell Absent Absent Urine Red Blood Cell Absent Absent Urine Bacteria Absent Absent Laboratory test finding 10/13/2017 Inr ([facility]ma) 1.0 0.9-1.1 Hemoglobin A1c ([facility]ma) 5.4 % 4.1-5.7 Laboratory test finding 07/01/2017 TSH 0.92 mIU/L 0.50-6.00 PSA 0.9 ng/mL 0.0-4.0 Laboratory test finding 07/01/2017 Hemoglobin A1c ([facility]ma) 5.5 % 4.1-5.7 Laboratory test finding 07/01/2017 LDL, Direct 148 mg/dL High 0-130 CBC Electronic [facility] 07/01/2017 WBC 6.8 x10^3/UL 4.0-10.0 RBC 4.67 x10^6/UL 3.93-6.00 HGB 15.2 g/dL 12.0-17.0 HCT 44 % 35-50 MCV 93.6 fL 80.0-95.0 MCH 32.5 pg High 25.6-32.2 MCHC 34.8 g/dL 32.2-36.0 RDW-CV 12.8 % 11.6-14.4 PLT 181 x10^3/UL 163-400 MPV 9.9 fL 9.4-12.4 [place]# 4.63 x10^3/UL 1.56-6.13 Lymph# 1.39 x10^3/UL 1.18-3.74 [place]# 0.62 x10^3/UL 0.24-0.82 Eos # 0.1 x10^3/UL 0.0-0.5 Baso # 0.04 x10^3/UL 0.01-0.08 [place]% 67.8 % 34.0-70.0 Lymph % 20.4 % 20.0-52.0 [place]% 9.1 % 5.0-12.0 Eos% 1.5 % 0.7-7.0 Baso% 0.6 % 0.1-1.2 Lipid Profile 07/01/2017 Cholesterol 259 mg/dL High 120-200 Triglycerides 286 mg/dL High 30-200 HDL Cholesterol 54 mg/dL 30-70 LDL (Calculated) 148 CALC High 0-129 VLDL Cholesterol 57 mg/dL High 0-50 HDL Risk Factor 4.8 CALC High 0.0-4.4 Comprehensive Metabolic Prof 07/01/2017 Sodium 135 mEq/L 134-149 Potassium 4.0 mEq/L 3.6-5.5 Chloride 95 mEq/L 94-112 Carbon Dioxide 26 mEq/L 21-32 Glucose 131 mg/dL High 70-105 10 BUN 16 mg/dL 6-26 Creatinine 1.0 mg/dL 0.6-1.4 BUN/Creat Ratio 16.0 CALC 8.0-36.0 Calcium 9.2 mg/dL 8.6-10.2 Total Protein 6.9 g/dL 6.4-8.3 Albumin 3.9 g/dL 3.8-5.5 Globulin 3.0 g/dL 2.0-4.8 A/G Ratio 1.3 CALC 0.6-2.3 Alk. Phosphatase 66 U/L 22-95 Alt (SGPT) 42 U/L High 7-35 Ast (Sgot) 38 U/L High 5-34 Total Bilirubin 1.1 mg/dL 0.2-1.3 GFR Non- >60 ml/min/1.73m^ >=60 GFR >60 ml/min/1.73m^ >=60 Laboratory test finding 07/13/2016 Inr ([facility]ma) 1.0 0.9-1.1 Basic Metabolic Profile 07/13/2016 Sodium 134 mEq/L 134-149 Potassium 4.1 mEq/L 3.6-5.5 Chloride 96 mEq/L 94-112 Carbon Dioxide 31 mEq/L 21-32 Glucose 104 mg/dL 70-105 BUN 21 mg/dL 6-26 Creatinine 1.1 mg/dL 0.6-1.4 BUN/Creat Ratio 19.1 CALC 8.0-36.0 Calcium 8.9 mg/dL 8.6-10.2 GFR Non- >60 ml/min/1.73m^ >=60 GFR >60 ml/min/1.73m^ >=60 Complete Blood Count 07/13/2016 WBC 6.0 x10^3/UL 3.6-9.6 RBC 4.94 x10^6/UL 3.90-5.70 HGB 15.3 g/dL 12.1-17.2 HCT 46 % 36-50 MCV 92.0 fL 82.2-97.4 MCH 30.9 pg 27.6-33.3 MCHC 33.5 g/dL 33.0-35.5 RDW 14.8 % High 11.6-13.7 PLT 186 x10^3/UL 150-400 MPV 6.9 fL Low 7.4-10.4 Gran # 4.0 x10^3/UL 1.5-7.2 Lymph# 1.7 x10^3/UL 0.7-4.9 [place]# 0.3 x10^3/UL 0.1-0.9 Gran % 65.6 % 42.2-75.2 Lymph % 29.0 % 20.5-51.1 [place]% 5.4 % 1.7-9.3 Laboratory test finding 04/03/2016 Uric Acid 8.1 mg/dL 2.5-9.2 Laboratory test finding 04/03/2016 Hemoglobin A1c ([facility]) 5.5 % 4.1-5.7 CBC Electronic ([facility]) 04/03/2016 WBC 5.9 3.6-9.6 RBC 4.86 3.90-5.70 Hemoglobin (Fma/CMC/CTX) 15.2 g/dL 12.1 - 17.2 Hematocrit (Fma/CMC/CTX) 46.4 % 36.1 - 50.3 Platelets 196 10^3/ul 150-400 Lymph% 25.2 % 17.0-48.0 Mixed% 4.7 Neutrophils % 70.1 Mean Corpuscular Vol 95 82.2-97.4 Mean Corpuscular Hemoglobin 31.3 27.6-33.3 Mean Corpuscular Hemo Concen 32.8 32.0-36.0 RDW 14.5 High 11.6-13.7 Mean Platelet Volume 6.6 5.5-11.0 Laboratory test finding 07/15/2015 Hemoglobin A1c ([facility]ma) 5.7 % 4.1-5.7 Laboratory test finding 07/15/2015 PSA 0.8 ng/mL 0.0-4.0 CBC Electronic ([facility]) 07/05/2015 WBC 5.7 3.6-9.6 RBC 4.72 3.90-5.70 Hemoglobin (Fma/CMC/CTX) 15.0 g/dL 12.1 - 17.2 Hematocrit (Fma/CMC/CTX) 45.7 % 36.1 - 50.3 Platelets 194 10^3/ul 150-400 Lymph% 25.9 % 17.0-48.0 Mixed% 3.9 Neutrophils % 70.2 Mean Corpuscular Vol 97 82.2-97.4 Mean Corpuscular Hemoglobin 31.8 27.6-33.3 Mean Corpuscular Hemo Concen 32.8 32.0-36.0 RDW 14.2 High 11.6-13.7 Mean Platelet Volume 7.3 5.5-11.0 Laboratory test finding 07/05/2015 TSH 1.36 mIU/L 0.50-6.00 Free T4 1.21 ng/dL 0.75-1.54 Lipid Profile 07/05/2015 Cholesterol 213 mg/dL High 120-200 Triglycerides 150 mg/dL 30-200 HDL Cholesterol 44 mg/dL 30-70 LDL (Calculated) 139 CALC High 0-129 VLDL Cholesterol 30 mg/dL 0-50 HDL Risk Factor 4.8 CALC High 0.0-4.4 Comprehensive Metabolic Prof 07/05/2015 Sodium 143 mEq/L 134-149 Potassium 4.0 mEq/L 3.6-5.5 Chloride 103 mEq/L 94-112 Carbon Dioxide 32 mEq/L 21-32 Glucose 119 mg/dL High 70-105 11 BUN 16 mg/dL 6-26 Creatinine 1.1 mg/dL 0.6-1.4 BUN/Creat Ratio 14.5 CALC 8.0-36.0 Calcium 8.9 mg/dL 8.6-10.2 Total Protein 6.6 g/dL 6.4-8.3 Albumin 3.8 g/dL 3.8-5.5 Globulin 2.8 g/dL 2.0-4.8 A/G Ratio 1.4 CALC 0.6-2.3 Alk. Phosphatase 62 U/L 22-95 Alt (SGPT) 29 U/L 7-35 Ast (Sgot) 26 U/L 5-34 Total Bilirubin 0.6 mg/dL 0.2-1.3 GFR Non- >60 ml/min/1.73m^ >=60 GFR >60 ml/min/1.73m^ >=60 Laboratory test finding 07/05/2015 Vitamin D25 73 30-100 12 Laboratory test finding 08/16/2014 Inr 0.92 0.78-1.07 Activated Partial Thrombo Time 35.3 seconds 26.0-36.3 CBC Auto Diff 08/16/2014 White Blood Count 10.0 10^3/uL 4.8-10.8 Red Blood Count 5.03 10^6/uL 4.0-5.4 Hemoglobin 15.5 g/dL 14.0-18.0 Hematocrit 47 % 42-52 Mean Corpuscular Volume 93 fL 80-94 Mean Corpuscular Hemoglobin 31 pg 27-31 Mean Corpuscular HGB Conc 33 g/dL 31-36 Red Cell Distribution Width 14 % 10.5-15 Abs Neutrophils 6.8 10^3/uL 1.5-7.7 Abs Lymphocytes 2.4 10^3/uL 1.0-4.8 Abs Monocytes 0.6 10^3/uL 0-0.8 Abs Eosinophils 0.1 10^3/uL 0-0.6 Abs Basophils 0 10^3/uL 0-0.2 Abs Nucleated RBC 0.02 10^3/uL Granulocyte % 68.6 % 38-83 Lymphocyte % 23.6 % Low 25-47 Monocyte % 5.9 % 1-9 Eosinophil % 1.5 % 0-6 Basophil % 0.4 % 0-2 Nucleated Red Blood Cells % 0.2 Platelet Count 206 10^3/uL 150-450 Mean Platelet Volume 9 um3 7.4-10.4 Laboratory test finding 08/16/2014 Blood Culture SEE RESULT BELOW 13 Laboratory test finding 08/16/2014 Lactic Acid 1.1 mmol/L 0.5-2.2 Comp Metabolic Panel 08/16/2014 Sodium 134 mmol/L 133-145 Potassium 3.5 mmol/L 3.5-5.0 Chloride 99 mmol/L Low 101-111 Co2 Carbon Dioxide 27 mmol/L 22-32 Anion Gap 8 mmol/L 2-11 Glucose 117 mg/dL High 70-100 Blood Urea Nitrogen 16 mg/dL 6-24 Creatinine 1.07 mg/dL 0.67-1.17 BUN/Creatinine Ratio 15.0 8-20 Calcium 9.3 mg/dL 8.6-10.3 Total Protein 6.8 g/dL 6.4-8.9 Albumin 3.8 g/dL 3.2-5.2 Globulin 3.0 g/dL 2-4 Albumin/Globulin Ratio 1.3 1-3 Total Bilirubin 0.70 mg/dL 0.2-1.0 Alkaline Phosphatase 66 U/L 34-104 Alt 23 U/L 7-52 Ast 22 U/L 13-39 Egfr Non- 72.3 >60 Egfr 93.0 >60 14 Ua - Non Micro ([facility]) 07/11/2014 Appearance clear Color yellow Glucose, Urine (Fma/CMC/CTX) neg Bilirubin neg Ketones neg SP Grav 1.020 Blood neg PH 7.0 Protein neg Urobil 0.2 Nitrite neg Leukocytes (Fma/CMC/Centrex) neg Lipid Profile 07/03/2014 Cholesterol 221 mg/dL High 120-200 Triglycerides 193 mg/dL 30-200 HDL Cholesterol 42 mg/dL 30-70 LDL (Calculated) 140 CALC High 0-129 VLDL Cholesterol 39 mg/dL 0-50 HDL Risk Factor 5.3 CALC High 0.0-4.4 Laboratory test finding 07/03/2014 TSH 1.51 mIU/L 0.50-6.00 Vitamin D25 56 30-100 Complete Blood Count 07/03/2014 WBC 6.2 x10^3/UL 3.6-9.6 RBC 4.88 x10^6/UL 3.90-5.70 HGB 15.4 g/dL 12.1-17.2 HCT 46 % 36-50 MCV 94.0 fL 82.2-97.4 MCH 31.5 pg 27.6-33.3 MCHC 33.7 g/dL 33.0-35.5 RDW 13.3 % 11.6-13.7 PLT 200 x10^3/UL 150-400 MPV 7.9 fL 7.4-10.4 Gran # 4.0 x10^3/UL 1.5-7.2 Lymph# 1.9 x10^3/UL 0.7-4.9 [place]# 0.3 x10^3/UL 0.1-0.9 Gran % 62.3 % 42.2-75.2 Lymph % 32.4 % 20.5-51.1 [place]% 5.3 % 1.7-9.3 Laboratory test finding 07/03/2014 PSA 0.6 ng/mL 0.0-4.0 Comprehensive Metabolic Prof 07/03/2014 Sodium 141 mEq/L 134-149 Potassium 4.7 mEq/L 3.6-5.5 Chloride 99 mEq/L 94-112 Carbon Dioxide 32 mEq/L 21-32 Glucose 123 mg/dL High 70-105 15 BUN 13 mg/dL 6-26 Creatinine 1.0 mg/dL 0.6-1.4 BUN/Creat Ratio 13.0 CALC 8.0-36.0 Calcium 9.5 mg/dL 8.6-10.2 Total Protein 6.7 g/dL 6.4-8.3 Albumin 4.1 g/dL 3.8-5.5 Globulin 2.6 g/dL 2.0-4.8 A/G Ratio 1.6 CALC 0.6-2.3 Alk. Phosphatase 61 U/L 22-95 Alt (SGPT) 27 U/L 7-35 Ast (Sgot) 23 U/L 5-34 Total Bilirubin 0.8 mg/dL 0.2-1.3 Surgical Pathology 08/14/2012 S RUN DATE: 08/15/ <SEE NOTE> 16 Ua - Non Micro (a) 07/13/2012 Appearance clear Color yellow Glucose - Bilirubin - Ketones - SP Grav 1.025 Blood - PH 5.0 Protein - Urobil 0.2 Nitrite - Leukocytes ([place] [place] - Laboratory test finding 07/13/2012 PSA 0.60 ng/mL 0.00-4.00 Laboratory test finding 07/13/2012 Hemoglobin A1c 5.4 % 4.1-5.7 (a/CMC,CX) Comprehensive Metabolic 07/08/2012 Albumin 4.3 g/dL 3.8-5.5 Prof Alk. Phos. 67 U/L 22-95 Alt (SGPT) 31 U/L 10-40 Ast (Sgot) 26 U/L 5-34 BUN 20 mg/dL 6-26 Calcium 9.1 mg/dL 8.6-10.2 Chloride 100 mEq/L 94-112 Creatinine 1.3 mg/dL 0.6-1.4 Carbon Dioxide 28 mEq/L 21-32 Glucose 129 mg/dL High 70-105 Sodium 140 mEq/L 134-149 Total Bilirubin 1.1 mg/dL 0.2-1.3 Total Protein 7.0 g/dL 6.3-8.1 Potassium 3.7 mEq/L 3.6-5.5 Globulin 2.6 g/dL 2.0-4.8 A/G Ratio 1.6 Calc 0.6-2.3 BUN/Creat Ratio 15.1 Calc 8.0-36.0 Lipid Profile 07/08/2012 Cholesterol 234 mg/dL High 120-200 HDL 45 mg/dL 30-70 Triglycerides 199 mg/dL 30-200 HDL Risk Factor 5.2 CALC High 0.0-4.4 LDL (Calculated) 149 CALC High 0-129 VLDL (Calculated) 40 mg/dL 0-50 Laboratory test finding 07/08/2012 TSH 1.19 mIU/L 0.50-6.00 Laboratory test finding 07/08/2012 Urine Microalbumin (Fma) <5.0 CBC Electronic (Fma) 07/08/2012 WBC 5.5 3.6-9.6 RBC 4.87 3.90-5.70 Hemoglobin (Fma/CMC/CTX) 15.3 g/dL 12.1 - 17.2 Hematocrit (Fma/CMC/CTX) 45.5 % 36.1 - 50.3 Platelets 173 10^3/ul 150-400 Lymph% 31.1 20.5-51.1 Mixed% 5.7 Neutrophils % 63.2 Mean Corpuscular Vol 93 82.2-97.4 Mean Corpuscular Hemoglobin 31.5 27.6-33.3 Mean Corpuscular Hemo Concen 33.7 32.0-36.0 RDW 13.8 High 11.6-13.7 Mean Platelet Volume 6.9 6.5-11.0 Laboratory test finding 07/08/2012 Vitamin D, 25 Oh 14.5 ng/mL Low 30.0- 100.0 17 Laboratory test finding 07/06/2011 Hemoglobin A1c 5.9 % High 4.1-5.7 (Fma/CMC,CX) Laboratory test finding 05/22/2011 PSA 0.70 ng/mL 0.00-4.00 Comprehensive Metabolic 05/22/2011 Albumin 4.6 g/dL 3.8-5.5 Prof Alk. Phos. 63 U/L 22-95 Alt (SGPT) 24 U/L 10-40 Ast (Sgot) 23 U/L 5-34 BUN 23 mg/dL 6-26 Calcium 9.7 mg/dL 8.6-10.2 Chloride 99 mEq/L 94-112 Creatinine 1.2 mg/dL 0.6-1.4 Carbon Dioxide 26 mEq/L 21-32 Glucose 123 mg/dL High 70-105 18 Sodium 142 mEq/L 134-149 Total Bilirubin 0.6 mg/dL 0.2-1.3 Total Protein 7.1 g/dL 6.3-8.1 Potassium 5.4 mEq/L 3.6-5.5 Globulin 2.5 g/dL 2.0-4.8 A/G Ratio 1.8 Calc 0.6-2.2 BUN/Creat Ratio 18.9 Calc 8.0-36.0 Lipid Profile 05/22/2011 Cholesterol 242 mg/dL High 120-200 HDL 47 mg/dL 30-70 Triglycerides 223 mg/dL High 30-200 HDL Risk Factor 5.1 CALC High 0.0-4.0 LDL (Calculated) 150 CALC High 0-129 VLDL (Calculated) 45 mg/dL 0-50 Ua - Non Micro (Fma) 05/03/2011 Appearance clear Color yellow Glucose - Bilirubin - Ketones trace SP Grav 1.025 Blood - PH 5.0 Protein - Urobil 0.2 Nitrite - Leukocytes (Fma/CMC/Centrex) - 1 FASTING 2 PAIN IN RIGHT HIP, BILATERAL PRIMARY OSTEOARTHRITI 3 Because ethnic data is not always readily available, this report includes an eGFR for both -Americans and non- Americans. The National Kidney Disease Education Program (NKDEP) does not endorse the use of the MDRD equation for patients that are not between the ages of 18 and 70, are , have extremes of body size, muscle mass, or nutritional status, or are non- or non-. According to the National Kidney Foundation, irrespective of diagnosis, the stage of the disease is based on the level of kidney function: Stage Description GFR(mL/min/1.73 m(2)) 1 Kidney damage with normal or decreased GFR 90 2 Kidney damage with mild decrease in GFR 60-89 3 Moderate decrease in GFR 30-59 4 Severe decrease in GFR 15-29 5 Kidney failure <15 (or dialysis) 4 Desirable: <150 Borderline High: 150-199 High: 200-499 Very High: >500 5 Desirable: <200 Borderline High: 200-239 High: >239 6 Low: <40 Desirable: 40-60 High: >60 7 Desirable: <100 Near Optimal: 100-129 Borderline High: 130-159 High: 160-189 Very High: >189 8 [id number] FASTING 1 sst serum poured off SPLIT SPECIMENP 2 plasma poured off from light blue, FROZEN 9 SEE RESULT BELOW Name: ZEB ALVAREZ : [address]: Julissa Lee MD Acct: [id number] Unit: [id number] AGE: 57 Location: [facility] Re12/03/17 SEX: M Status: REG REF SPEC: [id number] YOON: 12/03/17-[address] [facility] [address]: Julissa Lee MD REQ: [id number] RECD: 12/04/17-1020 STATUS: COMP _ SOURCE: URINE SPDESC: ORDERED: Urine Culture COMMENTS: FASTING 1 urine vaccutainer 1 URINE IN STERIL CUP 1 URINE SPUN DOWN IN CLEAR TUBE FOR MICRO Procedure Result Reported Site Urine Culture Final 12/04/17- 1448 ML No Growth (<1,000 CFU/mL) * ML - Main Lab . END OF REPORT DEPARTMENT OF PATHOLOGY, [address] [place] [address] Aristeo Saab M.D. Director [facility] # [id number] 10 RESULTS VERIFIED BY REPEAT ANALYSIS 11 consistent w/ previous results 12 FASTING 13 SEE RESULT BELOW Name: ZEB ALVAREZ : [address]: Gregg Bond MD Acct: [id number] Unit: [id number] AGE: 54 Location: ED Re08/16/14 SEX: M Status: DEP ER SPEC: [id number] YOON: 08/16/14-2099 DR: Candice CALVIN REQ: [id number] RECD: 08/16/14 STATUS: MIKAELA JOHNSON DR: Gregg Lee MD _ SOURCE: BLOOD,VENO SPDESC: ORDERED: Blood Cult Procedure Result Verified Site Aerobic Culture Bottle Final 08/21/14- 2106 ML No Growth Day 5 Anaerobic Culture Bottle Final 08/21/14- 2106 ML No Growth Day 5 * ML - MAIN LAB (PSC1) . END OF REPORT * ML=Testing performed at Main Lab DEPARTMENT OF PATHOLOGY, [address] [place] [address] Aristeo Saab M.D. Director [facility] # [id number] 14 Because ethnic data is not always readily available, this report includes an eGFR for both -Americans and non- Americans. The National Kidney Disease Education Program (NKDEP) does not endorse the use of the MDRD equation for patients that are not between the ages of 18 and 70, are , have extremes of body size, muscle mass, or nutritional status, or are non- or non-. According to the National Kidney Foundation, irrespective of diagnosis, the stage of the disease is based on the level of kidney function: Stage Description GFR(mL/min/1.73 m(2)) 1 Kidney damage with normal or decreased GFR 90 2 Kidney damage with mild decrease in GFR 60-89 3 Moderate decrease in GFR 30-59 4 Severe decrease in GFR 15-29 5 Kidney failure <15 (or dialysis) 15 RESULTS VERIFIED BY REPEAT ANALYSIS 16 RUN DATE: 08/15/12 [facility] LAB LIVE PAGE 1 RUN TIME: [address] [place] [id number] Specimen Inquiry Name: ZEB ALVAREZ : [address]: Henry Jorge MD Acct: [id number] Unit: [id number] AGE: 52 Location: ENDO Re08/14/12 SEX: M Status: REG REF SPEC: [id number] YOON: 08/14/12- [facility] DR: Henry Jorge MD REQ: [id number] RECD: 08/14/12 STATUS: DE JOHNSON DR: Julissa Lee MD _ ORDERED: LEVEL IV FINAL DIAGNOSIS Colon, 55 cm., biopsy: Hyperplastic polyp. CLINICAL HISTORY Routine screening colonoscopy POST-OPERATIVE DIAGNOSIS Removal of 1 polyp 55 cm., tics GROSS DESCRIPTION The specimen is received in formalin labeled Zeb Alvarez, Colon Polyp at 55 cm., and consists of multiple malik, soft tissue fragments measuring 0.6 x 0.2 x 0.1 cm. Submitted entirely, one cassette. Signed (signature on file) Aristeo Saab MD 1605 END OF REPORT * ML=Testing performed at Main Lab DEPARTMENT OF PATHOLOGY, [address] [place] [address] Aristeo Saab M.D. Director [facility] Permit #[id number] 17 Vitamin D deficiency has been defined by the [place] of Medicine and an Endocrine Society practice guideline as a level of serum 25-OH vitamin D less than 20 ng/mL (1,2). The Endocrine Society went on to further define vitamin D insufficiency as a level between 21 and 29 ng/mL (2). 1. IOM ([place] of Medicine). 2010. Dietary reference intakes for calcium and D. [place]: The National Academies Press. 2. Rachelle MF, Moiz NC, Tenzin MARTINEZ, et al. Evaluation, treatment, and prevention of vitamin D deficiency: an Endocrine Society clinical practice guideline. JCEM. 2010; 96(7):1911-30. 18 RESULT LEIA'D Procedures Date CPT Code Description Status 12/03/2017 55126 Electrocardiogram Complete Completed 07/10/2016 64859 Electrocardiogram Complete Completed 08/29/2014 32045 Remove Skin Tags Up To 15 Completed 08/14/2012 Colonoscopy Completed 07/13/2012 17849 Vision Test- screening test of visual acuity, Completed quantitative, bila 03/24/2012 32242 Destruction-1 Beign Lesion Completed 07/06/2011 73306 Finger Or Heel Stick Completed Encounters Type Date Location Provider CPT E/M Dx Office Visit 03/02/2018 3:00p Main Office Julissa Lee M.D. 33163 E78.49 I10 M25.551 Office Visit 12/03/2017 9:50a Main Office Julissa Lee M.D. 15958 Z01.818 M25.551 M16.0 I10 E11.9 Office Visit 10/13/2017 2:00p [facility] Julissa Lee M.D. 23356 Z00.01 I10 I87.2 E66.09 E11.9 Office Visit 03/18/2017 11:20a [facility] Julissa Lee M.D. 64642 I10 I83.893 Z00.01 Office Visit 07/13/2016 3:15p [facility] Julissa Lee M.D. 11968 I10 Office Visit 07/10/2016 10:20a Main Office Julissa Lee M.D. 27123 Z01.818 I83.813 B35.4 I10 Office Visit 06/21/2016 10:20a Main Office Julissa Lee M.D. 04509 I87.2 B35.4 Office Visit 04/24/2016 9:00a Main Office Xochitl Patel, [facility] 19248 R60.0 Office Visit 04/20/2016 11:20a [facility] Office Julissa Lee M.D. 08554 R60.0 Office Visit 04/08/2016 3:45p [facility] Office Xochitl Patel, [facility] 44016 B35.3 L03.116 Office Visit 04/03/2016 9:15a Main Office Xochitl Patel [facility] 53196 B35.3 L03.116 Office Visit 11/18/2015 3:20p [facility] Office Julissa Lee M.D. 08063 E66.09 M79.604 Office Visit 07/15/2015 2:00p [facility] Office Julissa Lee M.D. 75630 Z00.01 I10 I83.93 R60.0 E66.09 R73.01 Office Visit 09/09/2014 4:30p [facility] Jillianaline Stewart, [facility] 03976 782.9 924.3 Office Visit 08/29/2014 2:40p [facility] Office Julissa Lee M.D. 13895 701.9 782.9 Office Visit 07/11/2014 2:00p [facility] Office Julissa Lee M.D. 02639 V70.0 327.23 278.00 401.9 782.9 v70.0 Office Visit 11/09/2013 1:40p [facility] Office Julissa Lee M.D. 37318 278.00 Office Visit 06/07/2013 9:40a [facility] Office Julissa Lee M.D. 08213 401.9 278.00 Office Visit 03/08/2013 9:40a [facility] Office Julissa Lee M.D. 80699 719.46 401.9 278.00 Office Visit 02/09/2013 1:00p [facility] Office Julissa Lee M.D. 05867 719.46 401.9 Office Visit 12/08/2012 3:20p [facility] Office Julissa Lee M.D. 56121 401.9 278.00 Office Visit 10/23/2012 3:30p [facility] Office Nguyen BlackFABIOLA 40940 E906.4 E905.3 914.4 Office Visit 09/07/2012 3:20p [facility] Office Julissa Lee M.D. 34180 401.9 278.00 995.3 Office Visit 07/13/2012 10:00a [facility] Office Julissa Lee M.D. 65754 V70.0 401.9 272.4 278.00 790.21 v06.5 V76.41 V76.44 V72.0 Office Visit 03/24/2012 9:40a [facility] Office Julissa Lee M.D. 94037 786.2 401.9 327.23 278.00 782.9 702.19 Office Visit 11/30/2011 3:30p [facility] Peyman Atkinson 77232 477.9 381.81 Office Visit 11/03/2011 4:00p Main Office Sal Atkinson-Neena 92123 786.2 Office Visit 09/02/2011 4:00p Main Office Taylor Payton M.D. 01426 401.9 278.00 Office Visit 07/06/2011 4:30p Main Office Taylor Payton M.D. 36072 790.21 272.4 401.9 Office Visit 05/22/2011 9:00a Main Office Taylor Payton M.D. 31108 401.9 Office Visit 05/03/2011 5:20p Main Office Taylor Payton M.D. 50281 V70.0 401.9 278.00 Plan of Care 04/05/2018 - Julissa Lee M.D.Z01.818 Encounter for other preprocedural examinationComments:If all bloodworkand urine studies are normal, you are cleared for surgery. Your blood pressure is well controlled,With your weight loss your blood pressure might become too low and you wont need all three blood pressure medications.Continue the pravastatin for your cholesteroli recommend a bowel regimen with the first pain pill after surgery to prevent constipation to include stool softener, miralax and milk of magnesia if necessary.M25.551 Pain in right hipM16.0 Bilateral primary osteoarthritis of hipI10 Essential ( primary) hypertensionFollow up:3-4 months.R73.01 Impaired fasting glucoseComments:hemoglobin A1c=5.3.AllComments:~B_~U_Medication Management~b_~u _ Patient Understands medications he's taking? Yes No Are there Barriers to Adherence? Yes No Has the patient been asked about herbal supplements and therapies, and OTC meds? Yes No ~B_~U_Care Plan~b_~ u_1. Patient has been queried about patient's goals/preferences and functional/ lifestyle goals at relevant visits. If relevant, describe: na2. Treatment goals as explained to the patient: above3. Are there barriers to meeting treatment goals? Yes No If Yes, please describe:4. Self-Management goals as described to the patient: Yes No as above.
--- OUTSIDE RECORDS SUMMARY | 2018-04-25 10:14 | XMS REPORT | Continuity of Care Document ---
:1960 External Reference #:[id number] Author Name Haily Sheth Care Team Providers Name Role Phone Julissa Lee MD Primary Care Physician Unavailable Payers Type Date Identification Numbers Payment Provider Subscriber Policy Number: [id number] [facility] Zeb Yung PayID: [id number] [address] [place] [address] Advance Directives Description No Information Available Problems Date Description Provider Status Onset: 08/08/2014 Hypersomnia with sleep apnea Bryon Snowden M.D. 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 12/21 [...] Available Vital Signs Date Vital Result Comment 03/27/2018 9:24am Height 71 inches 5'11" Weight [...] Date Facility Test Result H/L Range Note Type & Screen 12/12/2017 [facility] Patient Blood O Negative [address] [place] [address] [phone] Antibody Screen NEGATIVE 1 PAIN IN RIGHT HIP, BILATERAL PRIMARY OSTEOARTHRITI Procedures Date Code Description Status 01/16/2018 14504 ECHO Transthoracic, Real-Time 2D With Doppler And Color Completed Flow 01/16/2018 68317 ECHO Transthoracic, Real-Time 2D With Doppler And Color Completed Flow 12/22/2017 57060 EKG Tracing & Interpretation Completed 12/09/2017 61831 Treadmill Interp/Report Only Completed 12/09/2017 16073 Stress Test Supervsn W/Out I/R Completed 10/31/201784589 Inject/Drain Joint/Bursa Major W/O US Completed 02/07/2015 Inject/Drain Joint/Bursa Major W/O US Completed 09/18/2014 75128 Polysomnography Sleep Staging 4+ Parameters W/Cpap Completed 03/23/2013 39090 Rad Exam; Hip Unilat Comp Completed 03/23/2013 88781 Rad Exam; Pelvis Completed 02/13/2013 23792 Rad Exam; Knee Comp Completed 02/13/2013 80591 Rad Exam; Knee Comp Completed 02/13/2013 99436 Xray Knee 3 Views Completed 02/13/2013 18523 Xray Knee 3 Views Completed 02/13/201379484 Inject/Drain Joint/Bursa Major W/O US Completed Encounters Type Date Location Provider Dx Diagnosis Office Visit 03/03/2018 Orthopedic Kelly Turner, M25.551 Pain in right hip 3:00p [facility] Sanders M16.51 Unilateral post-traumatic osteoarthritis, right hip Office Visit 02/23/2018 3:00p [place] Huitron E66.9 Obesity, Cardiology [facility] Tommy 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 normalFollow up:1 yearRecommendations:Continue PAP device, Benefitting and compliant with treatment. Clear for surgery from a Sleep Medicine standpoint. Use CPAP after your surgeries. Cleaning Wipe off mask daily (baby wipe-no scent, or warm water) Clean mask, tubing, filter, and water chamber weekly in mild no scent dish soap and water.Hang to dry. If you have any sleepiness while driving you MUST avoid operating a vehicle or machinery. If you have difficulty with your equipment, or need to replace your mask or hoses, please contact your homecare agency. A weight change of 20 pounds or more may have an effect on your equipment; if you are experiencing problems please call for an appointment. If you have any further questions, please call the [facility] at [phone].Z14.35 Body mass index (BMI) 35.0-35.9 , adult
[2018-04-25] MEDS ORDERED: Dexamethasone IV* 4 MG/ML 1 ML (4 MG) ONE (10:24)
[2018-04-25] MEDS ORDERED: celeCOXIB CAP* 100 MG ONE (10:24)
[2018-04-25] MEDS ORDERED: ceFAZolin 1 GM ADVAN(*) 1 GM ADDV.VIAL IVPB ONE (10:25)
[2018-04-25] MEDS ORDERED: ceFAZolin 2 GM PREMIX in ORs 2 GM/50 ML BAG IVPB ONE (10:25)
[2018-04-25] MEDS ORDERED: Gabapentin CAP(*) 300 MG ONE (10:25)
[2018-04-25] MEDS ORDERED: Acetaminophen IV 1GM/100ML * 100 ML ONE (10:53)
[2018-04-25] MEDS ORDERED: KETAMINE HCL* 50 MG/ML 10 ML VIAL ONE (12:00)
[2018-04-25] MEDS ORDERED: fentaNYL* 50 MCG/ML 2 ML VIAL (100 MCG VIAL) ONE (12:00)
[2018-04-25] MEDS ORDERED: Ondansetron INJ* 2 MG/ML VIAL ONE (12:00)
[2018-04-25] MEDS ORDERED: Propofol* 10 MG/ML 20 ML BTL ONE (12:00)
[2018-04-25] MEDS ORDERED: Midazolam* 1 MG/ML 5 ML VIAL (5 MG) ONE (12:00)
[2018-04-25] MEDS ORDERED: Ropivacaine (OR use only) 2 MG/ML 10 ML ONE (12:57)
[2018-04-25] MEDS ORDERED: ROPIVACAINE 5 MG/ML 30 ML BTL (0.5%) ONE (12:57)
[2018-04-25] MEDS ORDERED: EPHEDrine (Pressors)* 50 MG/ML VIAL ONE (15:58)
[2018-04-25] MEDS ORDERED: Glycopyrrolate IV* 0.2 MG/ML 1 ML VIAL ONE (15:58)
[2018-04-25] MEDS ORDERED: Atropine 1MG/ML INJ* 1 ML VIAL ONE (15:58)
[2018-04-25] MEDS ORDERED: oxyCODONE/Acetamin 5/325 MG* TAB PO PRN (16:35)
[2018-04-25] MEDS ORDERED: Magnesium Hydroxide LIQ* 30 ML UDC PO PRN (16:35)
[2018-04-25] MEDS ORDERED: Bisacodyl SUPP* 10 MG SUPP PR PRN (16:35)
[2018-04-25] MEDS ORDERED: Cyclobenzaprine TAB* 10 MG PO PRN (16:35)
[2018-04-25] MEDS ORDERED: Acetaminophen TAB* 325 MG PO PRN (16:35)
[2018-04-25] MEDS ORDERED: Morphine INJ* 2 MG/ML 1 ML SYRINGE (TWO MG - NEW SYRINGE VERSION) IV PRN (16:35)
[2018-04-25] MEDS ORDERED: diPHENhydraMINE IV* 50 MG/ML 1 ml VIAL (BENADRYL) IV PRN (16:35)
[2018-04-25] MEDS ORDERED: Ondansetron INJ* 2 MG/ML VIAL IV PRN (16:35)
[2018-04-25] MEDS ORDERED: Warfarin TAB(*) 10 MG PO ONE (17:00)
[2018-04-25] MEDS ORDERED: oxyCODONE/Acetamin 5/325 MG* TAB ONE (17:33)
[2018-04-25] MEDS: Lactated Ringers 1000 ML Bag* 1,000 ML IV SCH (18:31)
[2018-04-25] MEDS: oxyCODONE TAB* 5 MG TAB PO PRN (19:24)
[2018-04-25] MEDS: Docusate CAP* 100 MG PO SCH (19:25)
[2018-04-25] MEDS: Magnesium Hydroxide LIQ* 30 ML UDC PO SCH (19:25)
--- NOTE | 2018-04-25 19:39 | CONS ---
CC: Dr. Lee * CONSULTATION REPORT: DATE OF CONSULT: 04/25/18 PRIMARY CARE PROVIDER: Dr. Lee. REQUESTING PHYSICIAN IN CONSULT: Dr. Turner. ATTENDING PHYSICIAN: Dr. Mcfarlane (dictated by Zully Khan NP). REASON FOR CONSULT: Co-medical management. HISTORY OF PRESENT ILLNESS/HOSPITAL COURSE: I will refer you to Dr. Turner's history and physical dictated on 04/14/18 for complete details, but in short, Mr. Yung is a 57-year-old male with a past medical history of hypertension, sleep apnea, hyperlipidemia, obesity, moderate CAD, history of left foot drop status post muscle transfer; who presented to [facility] [place] today for an elective right total hip arthroplasty after he has failed conservative treatment. PAST MEDICAL HISTORY: 1. Hypertension. 2. Sleep apnea. 3. Hyperlipidemia. 4. Obesity. 5. History of foot drop status post muscle transfer. 6. Moderate CAD. PAST SURGICAL HISTORY: 1. ORIF of right hip. 2. Tonsillectomy. 3. Muscle transfer on right foot. 4. Skull fracture repair. HOME MEDICATIONS: 1. Pravastatin 40 mg. 2. Omeprazole 20 mg. 3. Metoprolol 50 mg p.o. q.a.m. 4. Avapro 150 mg p.o. q.a.m. 5. Hydrochlorothiazide 50 mg p.o. q.a.m. 6. Cinnamon bark 1000 mg p.o. q.a.m. ALLERGIES: No known drug allergies. FAMILY HISTORY: Father at age 66 due to [place]. Mother at _ of COPD. Brother has hypertension. Sister has colitis. SOCIAL HISTORY: The patient is a former smoker of approximately 8 years in his teens. No longer smokes. The patient reports occasional alcohol use. He reports he drinks 5 to 6 times per week more than 1 glass at a time. Last drink was 4 days ago. The patient denies drug use. 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 The patient is . He lives with his . He is independent in his ADLs. REVIEW OF SYSTEMS: Constitutional: No fevers, no anorexia. Cardiac: No chest pain, no edema, no palpitations. Respiratory: No cough, no hemoptysis, no shortness of breath. GI: No nausea or vomiting, no diarrhea, no abdominal pain. : No gross hematuria, no dysuria. Neuro: No focal weakness or sensory loss. Eyes: No visual complaints. ENT: No ear pain, no nasal congestion, no sore throat. Musculoskeletal: The patient reports mild pressure to right hip. Denies other pain. Skin: No rashes or lesions. Psych : No psychosis, anxiety, or depression. PHYSICAL EXAM: Constitutional: The patient is in the PACU stretcher. He is alert, pleasant, in no acute distress. Vital Signs: Temp 98.6, pulse 57, O2 saturation 100% on room air, BP 131/90. Eyes: Conjunctivae pink and moist. PERRLA. EOMs intact. ENT: External ears and nose within normal limits. Oropharynx is moist without lesions. Lymphatic: No cervical or supraclavicular lymphadenopathy. Cardiac: No murmurs, rubs, or gallops. S1, S2 present. Regular rate and rhythm. No lower extremity edema. Pedal pulses 2 + bilaterally. Respiratory: No accessory muscle use. Lung sounds are clear. No wheezes, rhonchi, or rales. Abdomen: Soft, nontender, nondistended. Bowel sounds x4. Last BM was today. Musculoskeletal: No clubbing or cyanosis. Dressing to right hip is clean, dry, and intact. Skin: No rashes or lesions. Neuro: No focal deficits noted. Psych: Affect is appropriate. ASSESSMENT AND PLAN: Mr. Yung is a 57-year-old male with a past medical history significant for hypertension, sleep apnea, hyperlipidemia, obesity, right foot drop status post muscle transfer, moderate coronary artery disease, who presented to [facility] today for an elective right hip replacement. The patient will be inpatient for: 1. Status post right total hip replacement: I will defer this to Ortho team. 2. Hypertension: The patient is currently normotensive. Due to the patient's postop status, I will hold his hydrochlorothiazide and Avapro. I will continue patient's metoprolol. This should be reassessed tomorrow to add back in his home medications as appropriate. 3. Sleep apnea: The patient has brought his own CPAP. I have placed an order for the patient to use his own CPAP. I have also placed an order for the patient to be on continuous pulse oximetry overnight. 4. HDL: The patient reports he takes pravastatin 40 mg p.o. q.a.m. He was previously on 20 mg, but was increased due to poor control. I will continue this. 5. History of right foot drop status post right muscle transfer: The patient reports he has slightly decreased motion in the right foot due to this previous surgery. This should be kept in mind when doing checks. 6. Moderate coronary artery disease: The patient had cardiac testing at [facility] per note from Dr. Cervantes and was noted to have moderate coronary artery disease. The patient should follow up with his primary care provider as recommended. 7. FEN: The patient has been placed on a regular diet by Ortho. 8. Code status: The patient is a full code. 9. Surrogate decision maker: Joseph Yung, his , is his surrogate decision maker in the case he cannot make his own decisions. 10. DVT prophylaxis: This has been ordered by the Ortho team. TIME SPENT: Approximately 35 minutes were spent on this consultation, greater than half the time was spent [id number] with the patient and caregiver obtaining my history, performing the physical exam, and reviewing my plan of care. This case has been reviewed with my attending, Dr. Mcfarlane, who agreed with the plan. ZULLY KHAN, FABIOLA [id number]/[facility] #: [id number] JERZY
[2018-04-25] MEDS: ceFAZolin 1 GM ADVAN(*) 1 GM in NS 0.9% 50 ML* 50 ML IVPB SCH (21:23)
[2018-04-25] MEDS: oxyCODONE/Acetamin 5/325 MG* TAB PO PRN (22:19)
[2018-04-26] MEDS: oxyCODONE TAB* 5 MG TAB PO PRN ×4 (00:40→16:36)
[2018-04-26] MEDS: oxyCODONE/Acetamin 5/325 MG* TAB PO PRN ×3 (03:04→13:16)
[2018-04-26] MEDS: Lactated Ringers 1000 ML Bag* 1,000 ML IV SCH (04:41)
[2018-04-26] MEDS: ceFAZolin 1 GM ADVAN(*) 1 GM in NS 0.9% 50 ML* 50 ML IVPB SCH ×2 (05:17→13:17)
[2018-04-26 05:19] LABS: Hematocrit 34 % (42-52); Hemoglobin 11.8 g/dl (14.0-18.0); Mean Platelet Volume 7.4 fL (7.4-10.4); Platelet Count 163 10^3/ul (150-450)
[2018-04-26 05:36] LABS: BUN/Creatinine Ratio 16.5 (8-20); Calcium 8.8 mg/dL (8.6-10.3); EGFR African American 84.7 (>60); Potassium 3.7 mmol/L (3.5-5.0)
[2018-04-26 05:59] LABS: INR 0.98 (0.77-1.02)
[2018-04-26] MEDS: Magnesium Hydroxide LIQ* 30 ML UDC PO SCH (07:26)
[2018-04-26] MEDS: Docusate CAP* 100 MG PO SCH (07:27)
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
[2018-04-26] MEDS ORDERED: Metoprolol Succinate XL TAB* 50 MG PO SCH (09:00)
[2018-04-26] MEDS ORDERED: Atorvastatin* 10 MG TAB PO SCH (09:00)
[2018-04-26] MEDS ORDERED: Pantoprazole TAB * 40 MG TAB PO SCH (09:00)
[2018-04-26] MEDS ORDERED: Enoxaparin(*) 40 MG/0.4 ML SYR SUBCUT SCH (09:00)
--- NOTE | 2018-04-26 12:28 | PN ---
Progress Note - Progress Note Date of Service: 04/26/18 SOAP: Subjective: []Pt seen and examined at bedside. He feels well without CP, SOB, dizziness, nausea. Right hip pain is well controlled at this time. Has history of weakness in dorsiflexion of right foot due to hx muscle transfer, he reports this as baseline s/p surgery. Objective: []General: Well appearing, NAD RLE: Right hip dressing CDI without surrounding erythema, thigh is soft, DF/PF intact, sensation intact to light touch distally, DP2+, capillary refill less than two seconds distally. Calves supple and nontender without erythema, edema or palpable cords Assessment: []POD 1 sp RTH 04/25 Dr Turner Plan: []WBAT PT/OT Posterior hip precautions eliquis 2.5 mg po BID Anticipate DC to home this afternoon or tomorrow morning depending on progress with PT, comfort level this afternoon Vital Signs Temp 98.3 F 04/26/18 11:30 Pulse 69 04/26/18 11:30 Resp 16 04/26/18 12:00 BP 130/65 04/26/18 11:30 Pulse Ox 97 04/26/18 12:00 Intake & Output 04/25/18 04/26/18 04/26/18 18:59 06:59 18:59 Intake Total 3300 1645 Output Total 2550 0 Balance 3300 -905 0 Weight 258 lb Intake: IV Fluids 2700 1045 ABX - CEFAZOLIN 55 LR 2700 990 Oral 600 600 Output: Urine 0 0 Demarco 2550 Laboratory Last Values Hgb 11.8 g/dl (14.0-18.0) L 04/26/18 05:11 Hct 34 % (42-52) L 04/26/18 05:11 Plt Count 163 10^3/ul (150-450) 04/26/18 05:11 MPV 7.4 fL (7.4-10.4) 04/26/18 05:11 INR (Anticoag Therapy) 0.98 (0.77-1.02) 04/26/18 05:11 Sodium 135 mmol/L (135-145) 04/26/18 05:11 Potassium 3.7 mmol/L (3.5-5.0) 04/26/18 05:11 Chloride 99 mmol/L (101-111) L 04/26/18 05:11 Carbon Dioxide 30 mmol/L (22-32) 04/26/18 05:11 Anion Gap 6 mmol/L (2-11) 04/26/18 05:11 BUN 18 mg/dL (6-24) 04/26/18 05:11 Creatinine 1.09 mg/dL (0.67-1.17) 04/26/18 05:11 Est GFR ( Amer) 84.7 (>60) 04/26/18 05:11 Est GFR (Non-Af Amer) 70.0 (>60) 04/26/18 05:11 BUN/Creatinine Ratio 16.5 (8-20) 04/26/18 05:11 Glucose 133 mg/dL (70-100) H 04/26/18 05:11 Calcium 8.8 mg/dL (8.6-10.3) 04/26/18 05:11
--- NOTE | 2018-04-26 15:21 | PN ---
Subjective Date of Service: 04/26/18 Interval History: Patient seen and examined. OOB to chair. Feeling well, no acute overnight events. States his appetite is good, he is working with PT. Denies SOB, no chest pain, no fevers or chills. Anxious to go home tomorrow. Objective Active Medications: Acetaminophen (Tylenol Tab*) 650 mg PO Q8H PRN PRN Reason: PAIN OR TEMPERATURE Apixaban (Eliquis*) 2.5 mg PO BID [facility] Atorvastatin Calcium (Lipitor*) 5 mg PO QAM [facility]; Protocol Last Admin: 04/26/18 07:26 Dose: 5 mg Bisacodyl (Dulcolax Supp*) 10 mg MI DAILY PRN PRN Reason: constipation Cyclobenzaprine HCl (Flexeril Tab*) 5 mg PO TID PRN PRN Reason: SPASMS Diphenhydramine HCl (Benadryl Iv*) 25 mg IV Q6H PRN PRN Reason: itching Docusate Sodium (Colace Cap*) 100 mg PO BID [facility] Last Admin: 04/26/18 07:27 Dose: 100 mg Lactated Ringer's (Lactated Ringers 1000 Ml Bag*) 1,000 mls @ 100 mls/hr IV PER RATE [facility] Last Admin: 04/26/18 04:41 Dose: 100 mls/hr Lactulose (Lactulose*) 30 ml PO Q6H PRN PRN Reason: constipation Magnesium Hydroxide (Milk Of Magnesia Liq*) 30 ml PO BID [facility] Last Admin: 04/26/18 07:26 Dose: 30 ml Magnesium Hydroxide (Milk Of Magnesia Liq*) 30 ml PO Q6H PRN PRN Reason: constipation Metoprolol Succinate (Toprol Xl Tab*) 50 mg PO QAM [facility] Last Admin: 04/26/18 07:27 Dose: 50 mg Morphine Sulfate (Morphine Inj ((Syringe))*) 2 mg IV Q2H PRN PRN Reason: PAIN Last Admin: 04/26/18 01:25 Dose: 2 mg Ondansetron HCl (Zofran Inj*) 4 mg IV Q6H PRN PRN Reason: nausea Oxycodone HCl (Roxycodone Tab*) 10 mg PO Q4H PRN PRN Reason: PAIN - SEVERE Last Admin: 04/26/18 10:04 Dose: 10 mg Oxycodone/Acetaminophen (Percocet 5/325 Tab*) 1 tab PO Q3H PRN PRN Reason: PAIN - MODERATE Last Admin: 04/25/18 17:37 Dose: 1 tab Oxycodone/Acetaminophen (Percocet 5/325 Tab*) 2 tab PO Q3H PRN PRN Reason: PAIN - MODERATE Last Admin: 04/26/18 13:16 Dose: 2 tab Pantoprazole Sodium (Protonix Tab*) 40 mg PO QAM [facility] Last Admin: 04/26/18 07:27 Dose: 40 mg Vital Signs - 8 hr 04/26/18 04/26/18 04/26/18 07:28 07:36 07:45 Temperature 97.9 F Pulse Rate 69 Respiratory 16 16 16 Rate Blood Pressure 136/79 (mmHg) O2 Sat by Pulse 93 95 Oximetry 04/26/18 04/26/18 04/26/18 07:46 10:00 10:04 Temperature Pulse Rate Respiratory 16 16 16 Rate Blood Pressure (mmHg) O2 Sat by Pulse 94 Oximetry 04/26/18 04/26/18 04/26/18 11:30 12:00 13:16 Temperature 98.3 F Pulse Rate 69 Respiratory 16 16 16 Rate Blood Pressure 130/65 (mmHg) O2 Sat by Pulse 97 97 Oximetry 04/26/18 14:00 Temperature Pulse Rate Respiratory 16 Rate Blood Pressure (mmHg) O2 Sat by Pulse 96 Oximetry Oxygen Devices in Use Now: None Appearance: alert, NAD Eyes: No Scleral Icterus, PERRLA Ears/Nose/Mouth/Throat: NL Teeth, Lips, Gums Neck: NL Appearance and Movements; NL JVP, Trachea Midline Respiratory: Symmetrical Chest Expansion and Respiratory Effort, Clear to Auscultation Cardiovascular: NL Sounds; No Murmurs; No JVD, RRR, No Edema Abdominal: NL Sounds; No Tenderness; No Distention Extremities: No Edema, No Clubbing, Cyanosis Skin: No Rash or Ulcers, - - dressing CDI Neurological: Alert and Oriented x 3 Nutrition: Taking PO's Result Diagrams: 04/26/18 05:11 04/26/18 05:11 Assess/Plan/Problems-Billing Assessment: This is s a 57 year old male with hx of HT, obesity, NAKIA, CAD and foot drop that presented to [facility] for [place] [facility] - Patient Problems (1) Status post total hip replacement, right Code(s): Z96.641 - PRESENCE OF RIGHT ARTIFICIAL HIP JOINT SNOMED Code(s): 609128311755 Comment: - POC as per ortho - POD1, OOB, PT/OT - Pain control and bowel regimen - DVT prophy with eliquis per ortho (2) HTN (hypertension) Code(s): I10 - ESSENTIAL (PRIMARY) HYPERTENSION SNOMED Code(s): 04417900 Comment: - BP stable, restart ARB and HCTZ at discharge (3) GERD (gastroesophageal reflux disease) Code(s): K21.9 - GASTRO-ESOPHAGEAL REFLUX DISEASE WITHOUT ESOPHAGITIS SNOMED Code(s): 792341025 Comment: - Continue PPI (4) CAD (coronary artery disease) Code(s): I25.10 - ATHSCL HEART DISEASE OF [place] CORONARY ARTERY W/O ANG PCTRS SNOMED Code(s): 23202725 Comment: - Continue metoprolol (5) NAKIA (obstructive sleep apnea) Code(s): G47.33 - OBSTRUCTIVE SLEEP APNEA (ADULT) (PEDIATRIC) SNOMED Code(s): 34590502 Comment: - Using CPAP from home Status and Disposition: Inpatient, dispo as per ortho
[2018-04-26 16:29] VITALS: BP 111/70
[2018-04-27] MEDS ORDERED: Apixaban* 2.5 MG TAB PO SCH (09:00)
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
== END 2018-04-26 18:15 | disposition home health service (06) | DRG 301 ==
LOC: AA 04-25 10:09 → SSU 04-25 18:09
PROVIDERS: ADMIT Orthopaedic Surgery Adult Reconstructive Orthopaedic Surgery; ATTEND Orthopaedic Surgery Adult Reconstructive Orthopaedic Surgery
PROC: 0SR904A Replacement of Right Hip Joint with Ceramic on Polyethylene Synthetic Substitute, Uncemented, Open Approach (ICD-10-PCS; principal; 2018-04-25 13:00)
DX: M16.51 Unilateral post-traumatic osteoarthritis, right hip (principal); I10 Essential (primary) hypertension; I25.10 Atherosclerotic heart disease of native coronary artery without angina pectoris; K21.9 Gastro-esophageal reflux disease without esophagitis; G47.33 Obstructive sleep apnea (adult) (pediatric); M21.061 Valgus deformity, not elsewhere classified, right knee; E66.9 Obesity, unspecified; M25.751 Osteophyte, right hip; M21.372 Foot drop, left foot; E78.5 Hyperlipidemia, unspecified; I08.1 Rheumatic disorders of both mitral and tricuspid valves; Z82.49 Family history of ischemic heart disease and other diseases of the circulatory system; Z83.6 Family history of other diseases of the respiratory system; Z87.891 Personal history of nicotine dependence; Z82.3 Family history of stroke; Z72.89 Other problems related to lifestyle; Z68.36 Body mass index [BMI] 36.0-36.9, adult
CPT/HCPCS: 36415; 72170; 80048; 85014; 85018; 85049; 85610; A9270-GY; C1713; C1776; J0461; J0690; J1100; J1650; J2250; J2270; J2405; J2704; J2795; J3010

== ENCOUNTER 2018-04-29 09:15 | Emergency (ER) | payer OTHER ==
[2018-04-29 09:51] LABS: ABS Basophils 0.1 10^3/ul (0-0.2); ABS Eosinophils 0.1 10^3/ul (0-0.6); ABS Lymphocytes 1.4 10^3/ul (1.0-4.8); ABS Monocytes 0.7 10^3/ul (0-0.8); ABS Neutrophils 6.1 10^3/ul (1.5-7.7); ABS Nucleated RBC 0 10^3/ul; Hematocrit 33 % (42-52); Hemoglobin 11.6 g/dl (14.0-18.0); Mean Corpuscular HGB Conc 35 g/dl (31-36); Mean Corpuscular Hemoglobin 34 pg (27-31); Mean Corpuscular Volume 95 fL (80-94); Mean Platelet Volume 7.7 fL (7.4-10.4); Nucleated Red Blood Cells % 0.1; Platelet Count 237 10^3/ul (150-450); Red Blood Count 3.47 10^6/ul (4.00-5.40); Red Cell Distribution Width 13 % (10.5-15); White Blood Count 8.4 10^3/ul (3.5-10.8)
[2018-04-29 09:57] LABS: INR 1.14 (0.77-1.02)
[2018-04-29 10:08] LABS: Albumin 3.3 g/dL (3.2-5.2); Albumin/Globulin Ratio 1.1 (1-3); BUN/Creatinine Ratio 13.4 (8-20); C Reactive Protein 71.88 mg/L (<8.01); Calcium 8.9 mg/dL (8.6-10.3); EGFR African American 96.9 (>60); EGFR Non-African American 80.1 (>60); Globulin 2.9 g/dL (2-4); Potassium 3.5 mmol/L (3.5-5.0); Total Bilirubin 1.2 mg/dL (0.2-1.0); Total Protein 6.2 g/dL (6.4-8.9)
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
[2018-04-29 11:28] LABS: Erythrocyte Sed Rate 87 mm/Hr (0-20)
[2018-04-29 12:00] VITALS: BP 117/60
== END 2018-04-29 11:59 | disposition home or self-care (01) ==
LOC: ED 09:15
DX: L03.90 Cellulitis, unspecified (principal); I10 Essential (primary) hypertension; I25.10 Atherosclerotic heart disease of native coronary artery without angina pectoris; E78.00 Pure hypercholesterolemia, unspecified; K21.9 Gastro-esophageal reflux disease without esophagitis; Z87.891 Personal history of nicotine dependence
CPT/HCPCS: 36415; 80053; 82550; 83605; 83874; 85025; 85610; 85652; 86140; 87040; 99283

== ENCOUNTER 2018-08-10 08:45 | Inpatient (IN) | payer OTHER ==
--- NOTE | 2018-08-01 10:04 | HP ---
AMENDED REPORT NOW INCLUDES DESIGNATED COSIGNER HISTORY AND PHYSICAL: DATE OF ADMISSION/SURGERY: 08/10/18 DATE OF OFFICE VISIT: 07/31/18 SURGEON: Kelly Turner MD.* (DICTATED BY MARIXA HAWK) PROCEDURE: Right total knee arthroplasty. CHIEF COMPLAINT: Right knee pain. HISTORY OF PRESENT ILLNESS: Mr. Yung is a 58-year-old gentleman with end- stage osteoarthritis of the right knee. He has failed conservative treatment and elected to proceed with a right total knee arthroplasty. PAST MEDICAL HISTORY: Hypertension, GERD, and sleep apnea. PAST SURGICAL HISTORY: Right total hip arthroplasty, ORIF of the right hip, tonsillectomy, muscle transfer to his right foot, surgery for skull fracture. CURRENT MEDICATIONS: 1. Metoprolol 50 mg a day. 2. Omeprazole 20 mg a day. 3. Hydrochlorothiazide 50 mg 2 tabs every day. 4. Amlodipine 5 mg daily. ALLERGIES: No known drug allergies. FAMILY HISTORY: COPD, stroke, and coronary artery disease. SOCIAL HISTORY: He is a 58-year-old gentleman, lives with his . He does not smoke or use drugs. Drinks approximately 6 to 8 beers per week. REVIEW OF SYSTEMS: A complete 14-point review of systems was reviewed with the patient. It was positive for GERD. He denies a history of DVT, PE, hepatitis, HIV, or anesthesia problems. PHYSICAL EXAMINATION GENERAL: He is well developed, well nourished, in no acute distress. VITAL SIGNS: He stands 5 feet 11 inches tall, weighs 248 pounds. His blood pressure is 147/94, his heart rate is 84. HEENT: Normocephalic, atraumatic. NECK: Supple. No palpable lymph nodes. PULMONARY: The lungs are clear to auscultation bilaterally. CARDIO: Regular rate and rhythm. Strong S1, S2. ABDOMEN: Soft, nontender, nondistended. NEUROLOGICAL: He is alert and oriented x3. MUSCULOSKELETAL: Right lower extremity: The skin is intact. There are no open wounds or abrasions. He has a 2+ dorsalis pedis pulse. He does have a partial footdrop on the right. He is able to dorsiflex, but has significant weakness with dorsiflexion. He has intact sensation. There is a moderate effusion of the right knee joint and some tenderness over the medial and lateral joint line. Range of motion is 5 to 120 degrees of flexion. ASSESSMENT AND PLAN: Mr. Yung is a 58-year-old gentleman with end-stage osteoarthritis of the right knee. He has failed conservative treatment and has elected to proceed with a right total knee arthroplasty. The surgery is scheduled for 08/10/[address] Turner discussed the risks and benefits of the surgery at today's visit and all of his questions were answered. He will follow up with Dr. Turner 2 weeks after the surgery. MARIXA HAWK [id number]/[facility] #: [id number] MTDMolina
[~2018-08-10 08:45] MED LIST: Buffered Lidocaine 1% SYRIN* 1 ML/SYRINGE INTRADERM ONE; Dexamethasone TAB* 4 MG PO ONE; DiMENhydriNATE IV* 50 MG/ML VIAL IV PUSH PRN; Famotidine IV* 10 MG/ML 2 ML (20 mg) IV ONE; Gabapentin CAP(*) 300 MG PO ONE; Lactated Ringers 1000 ML Bag* 1,000 ML IV SCH; Morphine 4 MG/ML VIAL (1 ml) 4 MG/ML VIAL IV PRN; Naloxone* 0.4 MG/ML 1 ML VIAL IV PRN; Ondansetron TAB* 4 MG PO ONE; PROCHLORPERAZINE INJ 5 MG/ML 2 ML VIAL IV PRN; Scopolamine 1.5 mg* PATCH TRANSDERM PRN; Tranexamic Acid 1,000 MG in NS 0.9% 50 ML* (outpatient use) IV SCH; celeCOXIB CAP* 200 MG PO ONE; fentaNYL* 50 MCG/ML 2 ML VIAL (100 MCG VIAL) IV PRN; oxyCODONE/Acetamin 5/325 MG* TAB PO PRN
--- OUTSIDE RECORDS SUMMARY | 2018-08-10 08:50 | XMS REPORT | Continuity of Care Document ---
:1960 External Reference #:[id number] Author Name Julissa Lee M.D. 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 Onset: 05/03/2011 Essential hypertension Taylor Payton M.D. Onset: 05/03/2011 Obesity Taylor Payton M.D. Onset: 05/03/2011 Impaired fasting glycaemia Taylor Payton M.D. Onset: 07/06/2011 Hyperlipidemia Taylor Payton M.D. Onset: 07/06/2011 Other hyperlipidemia Julissa Lee M.D. Onset: 03/02/2018 Peripheral venous insufficiency Julissa Lee M.D. Onset: 10/13/2017 Family History Date Family Member(s) Observation Comments Father due to SD () - at age 66 Children None First Brother Hypertension First Brother 54 First Sister IBS? lives in [place]. First Sister 50 Paternal Grandfather due to Stroke () Social History Type Date Description Comments Sex Unknown Marital Status Has been 1 time Lives With Spouse Sleep Typically sleeps 6 hours a night Occupation [employer] Tobacco Use Start: Unknown End: Former Cigarette Smoker quit at age 23 Unknown 1 Pack Daily ETOH Use Currently consumes a Case of beer a alcohol week. (24) Less now 06/09/2013. Drinking less during the week. now drinking 6-12 a week. still at 6-12 beer 07/15/15. Now only 2 a week 03/2018. now a 6 pack a week. 07/14. Tobacco Use Start: Unknown End: Patient is a former Unknown smoker Smoking Status Reviewed: 07/14/18 Patient is a former smoker Exercise Exercises regularly 4-5 days a week on Type/Frequency the elliptical and free weights. Started Yoga. Allergies, Adverse Reactions, Alerts Description No Known Drug Allergies Medications Active Medications SIG Qnty Indications Ordering Date Provider Amlodipine Besylate 1 by mouth 30tabs Julissa Chaudhry 07/20/2018 5mg Tablets every day Tommy Lee Irbesartan Take 1 Tablet 90Tablet Julissa Chaudhry 07/19/2018 150mg Tablets By Mouth Every Tommy Lee Day- Back Order Pravastatin Sodium take one 90tabs Julissa Chaudhry 03/02/2018 40mg Tablets tablet by Tommy Lee mouth at bedtime Hydrochlorothiazide Take 2 Tablets 180tabs I10 Julissa Chaudhry 03/24/2012 25mg Tablets By Mouth Every Tommy Lee Day R60.0 Omeprazole Take 1 Capsule By 90caps Julissa Lee, 05/03/[address] Umesh Every Nafisa Sanders Metoprolol Succinate ER Take 1 Tablet By 90tajonathon King M.D. 2011 50mg Mouth Every Day Tablets ER 24HR History Medications Irbesartan Take 1 Tablet 90tabs Julissa Chaudhry 07/04/2018 - 150mg Tablets By Mouth Every Tommy Lee 07/19/2018 Day Pravastatin Sodium 1 by mouth 90tabs Julissa Chaudhry 12/03/2017 - 20mg Tablets every day Tommy Lee 03/02/2018 Ketoconazole apply thin 45gm B35.4 Julissa Chaudhry 06/21/2016 - 2% Cream layer twice a Tommy Lee 03/17/2017 day to right knee and bottow of left foot Altabax apply twice 15gm I87.2 Julissa Chaudhry 06/21/2016 - 1% Ointment daily to front Tommy Lee 03/17/2017 of left leg for up to 1 week. Circ-Aid Compression Wraps use as R60.0 Julissa Chaudhry 04/20/2016 - directed. Jesus M.D. 03/17/2017 Ketoconazole soak feet in 120ml B35.3 Xochitl Patel 04/08/2016 - 2% Shampoo 2 tsp in warm [facility] 03/17/2017 water daily Ketoconazole apply every 60gm B35.3 Xochitl Patel 04/03/2016 - 2% Cream day -bid to [facility] 03/17/2017 affected area Cephalexin 1 po tid x 42caps L03.11 Xochitl Patel 04/03/2016 - 500mg Capsules 14days 6 [facility] 04/19/2016 Tramadol HCL 2 every 12h as 60tabs L03.11 Xochitl Patel 04/03/2016 - 50mg Tablets needed pain 6 [facility] 03/17/2017 Cephalexin 1 po tid x 7 21caps E906.4 Nguyen Black NP 10/23/2012 - 500mg Capsules days 12/08/2012 Nasonex 1 spray each 17g 995.3 Julissa Chaudhry 09/07/2012 - 50mcg/Act Suspension nostril twice Tommy Lee 09/09/2014 daily 3 month supply Avapro take 1 tablet 90tabs Julissa Chaudhry 07/13/2012 - 150mg Tablets by mouth every Tommy Lee 07/04/2018 day Avapro 1 po qd 90tabs Julissa Chaudhry 04/03/2012 - 75mg Tablets Tommy Lee 07/13/2012 Nasonex 2 sprays each 3mos Leann 11/30/2011 - 50mcg/Act Suspension nostril qd Peyman Zavala 07/13/2012 Hydrochlorothiazide 1 po qd [facility] 05/03/2011 - [facility] 05/03/2011 Capsules [place] Aspirin 1 po qd [facility] 05/03/2011 - 325mg Tablets [facility] 04/04/2018 [place] Lisinopril 1 po qd 90tabs Taylor Miller 05/03/2011 - 20mg Tablets Tommy Payton 07/13/2012 Immunizations CPT Code Status Date Vaccine Lot # [id number] Given 07/13/2012 Tdap Tetanus, W Pertussis [id number] Vital Signs Date Vital Result Comment 07/14/2018 3:16pm BP Systolic 140 mmHg BP Diastolic 68 mmHg Heart Rate 72 /min Body Temperature 98.8 F Respiratory Rate 16 /min Height 71 inches 5'11" Weight 256.00 lb BMI (Body Mass Index) 35.7 kg/m2 04/04/2018 2:41pm BP Systolic 128 mmHg BP Diastolic 86 mmHg Heart Rate 97 /min Body Temperature 97.3 F Respiratory Rate 16 /min O2 % BldC Oximetry 96 % Height 71 inches 5'11" Weight 255.00 lb BMI (Body Mass Index) 35.6 kg/m2 03/02/2018 3:42pm BP Systolic 142 mmHg BP Diastolic 86 mmHg Heart Rate 80 /min Body Temperature 98.9 F Respiratory Rate 17 /min Height 71 inches 5'11" Weight 263.00 lb BMI (Body Mass Index) 36.7 kg/m2 12/03/2017 9:42am BP Systolic 136 mmHg BP Diastolic 86 mmHg Heart Rate 70 /min Body Temperature 98.6 F Respiratory Rate 17 /min Height 71 inches 5'11" Weight 261.38 lb BMI (Body Mass Index) 36.5 kg/m2 10/13/2017 2:00pm BP Systolic 124 mmHg BP Diastolic 80 mmHg Heart Rate 80 /min Body Temperature 98.0 F Respiratory Rate 18 /min Height 71 inches 5'11" Weight 263.00 lb BMI (Body Mass Index) 36.7 kg/m2 03/18/2017 12:05pm BP Systolic 130 mmHg BP Diastolic 80 mmHg Heart Rate 78 /min Body Temperature 97.9 F Respiratory Rate 16 /min Height 70.5 inches 5'10.50" Weight 279.00 lb BMI (Body Mass Index) 39.5 kg/m2 07/10/2016 10:34am BP Systolic 160 mmHg BP Diastolic 80 mmHg Heart Rate 72 /min Body Temperature 99.0 F Respiratory Rate 16 /min Height 70.5 inches 5'10.50" Weight 283.12 lb BMI (Body Mass Index) 40.0 kg/m2 06/21/2016 10:35am BP Systolic 154 mmHg BP Diastolic 86 mmHg BP Systolic Recheck 140 mmHg BP Diastolic Recheck 80 mmHg Heart Rate 90 /min Body Temperature 99.3 F Respiratory Rate 16 /min Height 70.5 inches 5'10.50" Weight 280.12 lb BMI (Body Mass Index) 39.6 kg/m2 04/24/2016 8:51am BP Systolic 124 mmHg BP Diastolic 70 mmHg Heart Rate 78 /min Respiratory Rate 16 /min Height 70.5 inches 5'10.50" Weight 281.00 lb BMI (Body Mass Index) 39.7 kg/m2 04/20/2016 11:48am BP Systolic 130 mmHg BP Diastolic 82 mmHg Heart Rate 72 /min Body Temperature 97.5 F Height 70.5 inches 5'10.50" Weight 282.25 lb BMI (Body Mass Index) 39.9 kg/m2 04/08/2016 3:52pm BP Systolic 130 mmHg BP Diastolic 78 mmHg Heart Rate 76 /min Body Temperature 98.0 F Respiratory Rate 18 /min Height 70.5 inches 5'10.50" 04/03/2016 9:13am BP Systolic 120 mmHg BP Diastolic 80 mmHg Heart Rate 72 /min Body Temperature 97.9 F Respiratory Rate 18 /min Height 70.5 inches 5'10.50" Weight 285.00 lb BMI (Body Mass Index) 40.3 kg/m2 11/18/2015 4:06pm BP Systolic 138 mmHg BP Diastolic 80 mmHg Heart Rate 68 /min Body Temperature 97.9 F Respiratory Rate 18 /min Height 70.5 inches 5'10.50" Weight 283.00 lb BMI (Body Mass Index) 40.0 kg/m2 07/15/2015 2:27pm BP Systolic 128 mmHg BP Diastolic 80 mmHg Heart Rate 68 /min Body Temperature 98.1 F Respiratory Rate 18 /min Height 70.5 inches 5'10.50" Weight 276.00 lb BMI (Body Mass Index) 39.0 kg/m2 09/09/2014 4:23pm BP Systolic 132 mmHg BP Diastolic 80 mmHg Heart Rate 80 /min Body Temperature 97.5 F Respiratory Rate 18 /min Height 71 inches 5'11" Weight 283.00 lb BMI (Body Mass Index) 39.5 kg/m2 08/29/2014 3:14pm BP Systolic 126 mmHg BP Diastolic 80 mmHg Heart Rate 64 /min Body Temperature 98.4 F Respiratory Rate 18 /min Height 71 inches 5'11" Weight 278.00 lb BMI (Body Mass Index) 38.8 kg/m2 07/11/2014 1:59pm BP Systolic 120 mmHg BP Diastolic 80 mmHg Heart Rate 80 /min Body Temperature 98.2 F Respiratory Rate 18 /min Height 71 inches 5'11" Weight 279.00 lb BMI (Body Mass Index) 38.9 kg/m2 11/09/2013 1:38pm BP Systolic 130 mmHg BP Diastolic 80 mmHg Heart Rate 84 /min Body Temperature 97.9 F Height 71.5 inches 5'11.50" Weight 279.00 lb BMI (Body Mass Index) 38.4 kg/m2 06/07/2013 9:53am BP Systolic 138 mmHg BP Diastolic 80 mmHg Heart Rate 68 /min Body Temperature 98.1 F Respiratory Rate 18 /min Height 71.5 inches 5'11.50" Weight 273.38 lb BMI (Body Mass Index) 37.6 kg/m2 03/08/2013 9:43am BP Systolic 150 mmHg BP Diastolic 92 mmHg Heart Rate 64 /min Body Temperature 98.5 F Respiratory Rate 16 /min Height 71.5 inches 5'11.50" Weight 273.00 lb BMI (Body Mass Index) 37.5 kg/m2 02/09/2013 1:01pm BP Systolic 134 mmHg BP Diastolic 70 mmHg Heart Rate 68 /min Body Temperature 98.9 F Respiratory Rate 18 /min Height 71.5 inches 5'11.50" Weight 277.00 lb BMI (Body Mass Index) 38.1 kg/m2 12/08/2012 3:39pm BP Systolic 126 mmHg BP Diastolic 82 mmHg Heart Rate 72 /min Body Temperature 98.6 F Respiratory Rate 16 /min Height 71.5 inches 5'11.50" Weight 271.38 lb BMI (Body Mass Index) 37.3 kg/m2 10/23/2012 3:39pm BP Systolic 152 mmHg BP Diastolic 92 mmHg Heart Rate 78 /min Body Temperature 99.3 F Height 71.5 inches 5'11.50" Weight 271.50 lb BMI (Body Mass Index) 37.3 kg/m2 09/07/2012 3:37pm BP Systolic 140 mmHg BP Diastolic 80 mmHg Heart Rate 72 /min Body Temperature 98.5 F Respiratory Rate 18 /min Height 71.5 inches 5'11.50" Weight 273.00 lb BMI (Body Mass Index) 37.5 kg/m2 07/13/2012 10:16am BP Systolic 160 mmHg BP Diastolic 102 mmHg BP Systolic Recheck 130 mmHg BP Diastolic Recheck 90 mmHg Heart Rate 72 /min Body Temperature 98.1 F Respiratory Rate 16 /min Height 71.5 inches 5'11.50" Weight 271.00 lb BMI (Body Mass Index) 37.3 kg/m2 Right Visual Acuity Distance 20/20 Left Visual Acuity Distance 20/25 03/24/2012 9:33am BP Systolic 140 mmHg BP Diastolic 90 mmHg Heart Rate 72 /min Body Temperature 97.5 F Height 70.75 inches 5'10.75" measured Weight 272.00 lb BMI (Body Mass Index) 38.2 kg/m2 11/30/2011 3:37pm BP Systolic 110 mmHg BP Diastolic 80 mmHg Heart Rate 72 /min Body Temperature 98.2 F Height 70.75 inches 5'10.75" measured Weight 268.00 lb BMI (Body Mass Index) 37.6 kg/m2 11/03/2011 4:37pm BP Systolic 130 mmHg BP Diastolic 86 mmHg Heart Rate 60 /min Body Temperature 98.9 F Height 70.75 inches 5'10.75" measured Weight 263.00 lb BMI (Body Mass Index) 36.9 kg/m2 09/02/2011 3:50pm BP Systolic 134 mmHg BP Diastolic 76 mmHg Heart Rate 60 /min Body Temperature 98.4 F Height 70.75 inches 5'10.75" measured Weight 259.00 lb BMI (Body Mass Index) 36.4 kg/m2 07/06/2011 5:08pm BP Systolic 140 mmHg BP Diastolic 84 mmHg Heart Rate 72 /min Body Temperature 97.6 F Height 70.75 inches 5'10.75" measured Weight 265.00 lb BMI (Body Mass Index) 37.2 kg/m2 05/22/2011 10:05am BP Systolic 144 mmHg BP Diastolic 82 mmHg Heart Rate 66 /min Body Temperature 97.6 F Height 70.75 inches 5'10.75" measured Weight 256.00 lb BMI (Body Mass Index) 36.0 kg/m2 05/03/2011 5:17pm BP Systolic 166 mmHg BP Diastolic 90 mmHg Heart Rate 72 /min Body Temperature 98.9 F Height 70.75 inches 5'10.75" measured Weight 258.00 lb BMI (Body Mass Index) 36.2 kg/m2 Results Test Date Facility Test Result H/L Range Note Type & Screen 07/31/2018 [facility] Patient Blood Type O Negative 1 Antibody Screen NEGATIVE Comprehensive Metabolic 07/28/2018 [facility]ma) Sodium 134 mEq/L 134-149 Prof Potassium 3.3 mEq/L Low 3.6-5.5 Chloride 88 mEq/L Low 94-112 2 Carbon Dioxide 31 mEq/L 21-32 Glucose 121 mg/dL High 70-105 BUN 15 mg/dL 6-26 Creatinine 1.2 mg/dL 0.6-1.4 BUN/Creat Ratio 12.5 CALC 8.0-36.0 Calcium 9.5 mg/dL 8.6-10.2 Total Protein 7.1 g/dL 6.4-8.3 Albumin 4.3 g/dL 3.8-5.5 Globulin 2.8 g/dL 2.0-4.8 A/G Ratio 1.5 CALC 0.6-2.3 Alk. Phosphatase 74 U/L 22-95 Alt (SGPT) 87 U/L High 7-35 Ast (Sgot) 63 U/L High 5-34 Total Bilirubin 1.2 mg/dL 0.2-1.3 GFR Non- >60 ml/min/1.73m^ >=60 GFR >60 ml/min/1.73m^ >=60 Laboratory test 07/28/2018 [facility] Caty([facility]ma) Ferritin 334 ng/mL 22- 415 finding Hepatitis Panel, 07/28/2018 [facility] Hep A Ab, IgM Negative Negative 3 Acute [address] [place] [address] (60)- - HBsAg Screen Negative Negative Hep B Core Ab, IgM Negative Negative Hep C Virus Ab <0.1 s/coratio 0.0-0.9 4 Iron And 07/28/2018 [facility] Iron Bind.Cap.(Tibc) 287 g/dL 250-450 [facility] [address] [place] [address] (601)- - Uibc 237 g/dL 111-343 Iron 50 g/dL 38-169 Iron Saturation 17 % 15-55 Urinalysis Profile 07/14/2018 [facility] Urine Color Yellow Urine Appearance Clear Urine Specific [place] 1.012 N 1.010-1.030 Urine pH 5.0 N 5-9 Urine Urobilinogen Negative Negative Urine Ketones Trace Abnormal Negative Urine Protein Negative Negative Urine Leukocytes Negative Negative Urine Blood Negative Negative Urine Nitrite Negative Negative Urine Bilirubin Negative Negative Urine Glucose Negative Negative Urine Culture And 07/14/2018 [facility] Urine Culture SEE RESULT 5 Sensitivities BELOW Inr/Protime 07/14/2018 [facility] Inr 0.82 N 0.77-1 .02 Laboratory test 07/14/2018 [facility] Partial 35.2 seconds N 26.0-3 6 finding Thrombo Time 6.3 PTT Comprehensive 07/14/2018 Jose [facility] Byrne([facility]) Sodium 122 mEq/L Low 134-14 7 Metabolic Prof 9 Potassium 4.3 mEq/L 3.6-5.5 Chloride 84 mEq/L Low 94-112 8 Carbon Dioxide 27 mEq/L 21-32 Glucose 90 mg/dL 70-105 BUN 16 mg/dL 6-26 Creatinine 1.1 mg/dL 0.6-1.4 BUN/Creat Ratio 14.5 CALC 8.0-36.0 Calcium 9.2 mg/dL 8.6-10.2 Total Protein 7.1 g/dL 6.4-8.3 Albumin 4.5 g/dL 3.8-5.5 Globulin 2.6 g/dL 2.0-4.8 A/G Ratio 1.7 CALC 0.6-2.3 Alk. Phosphatase 85 U/L 22-95 Alt (SGPT) 148 U/L High 7-35 9 Ast (Sgot) 174 U/L High 5-34 10 Total Bilirubin 1.0 mg/dL 0.2-1.3 GFR Non- >60 ml/min/1.73m^ >=60 GFR >60 ml/min/1.73m^ >=60 CBC Electronic Fma 07/14/2018 Jose Carlos Byrne([facility]) WBC 4.0 x10^3/UL 4.0- 10.0 RBC 4.35 x10^6/UL 3.93-6.00 HGB 13.9 g/dL 12.0-17.0 HCT 39 % 35-50 MCV 89.7 fL 80.0-95.0 MCH 32.0 pg 25.6-32.2 MCHC 35.6 g/dL 32.2-36.0 RDW-CV 13.7 % 11.6-14.4 PLT 170 x10^3/UL 163-400 MPV 9.4 fL 9.4-12.4 [place]# 2.07 x10^3/UL 1.56-6.13 Lymph# 1.01 x10^3/UL Low 1.18-3.74 [place]# 0.34 x10^3/UL 0.24-0.82 Eos # 0.1 x10^3/UL 0.0-0.5 Baso # 0.03 x10^3/UL 0.01-0.08 [place]% 58.0 % 34.0-70.0 Lymph % 28.3 % 20.0-52.0 [place]% 9.5 % 5.0-12.0 Eos% 2.8 % 0.7-7.0 Baso% 0.8 % 0.1-1.2 Laboratory test finding 04/29/2018 [facility] Blood Culture SEE RESULT BELOW 11 Comp Metabolic Panel 04/29/2018 [facility] Sodium 132 mmol/L Low 135-145 Potassium 3.5 mmol/L N 3.5-5.0 Chloride 95 mmol/L Low 101-111 Co2 Carbon Dioxide 29 mmol/L N 22-32 Anion Gap 8 mmol/L N 2-11 Glucose 124 mg/dL High 70-100 Blood Urea Nitrogen 13 mg/dL N 6-24 Creatinine 0.97 mg/dL N 0.67-1.17 BUN/Creatinine Ratio 13.4 N 8-20 Calcium 8.9 mg/dL N 8.6-10.3 Total Protein 6.2 g/dL Low 6.4-8.9 Albumin 3.3 g/dL N 3.2-5.2 Globulin 2.9 g/dL N 2-4 Albumin/Globulin Ratio 1.1 N 1-3 Total Bilirubin 1.20 mg/dL High 0.2-1.0 Alkaline Phosphatase 47 U/L N 34-104 Alt 13 U/L N 7-52 Ast 21 U/L N 13-39 Egfr Non- 80.1 >60 Egfr 96.9 >60 12 Laboratory test finding 04/29/2018 [facility] Creatine Kinase(CK) 236 U/L High 10-223 C Reactive Protein 71.88 mg/L High <8.01 Myoglobin 47.0 ng/mL N 17.4-105.7 Inr/Protime 04/29/2018 [facility] Inr 1.14 High 0.77-1.02 Laboratory test finding 04/29/2018 [facility] Lactic Acid 1.0 mmol/L N 0.5-2.0 13 CBC Auto Diff 04/29/2018 [facility] White Blood Count 8.4 10^3/uL N 3.5-10.8 Red Blood Count 3.47 10^6/uL Low 4.00-5.40 Hemoglobin 11.6 g/dL Low 14.0-18.0 Hematocrit 33 % Low 42-52 Mean Corpuscular Volume 95 fL High 80-94 Mean Corpuscular Hemoglobin 34 pg High 27-31 Mean Corpuscular HGB Conc 35 g/dL N 31-36 Red Cell Distribution Width 13 % N 10.5-15 Platelet Count 237 10^3/uL N 150-450 Mean Platelet Volume 7.7 fL N 7.4-10.4 Abs Neutrophils 6.1 10^3/uL N 1.5-7.7 Abs Lymphocytes 1.4 10^3/uL N 1.0-4.8 Abs Monocytes 0.7 10^3/uL N 0-0.8 Abs Eosinophils 0.1 10^3/uL N 0-0.6 Abs Basophils 0.1 10^3/uL N 0-0.2 Abs Nucleated RBC 0 10^3/uL Granulocyte % 72.8 % Lymphocyte % 17.0 % Monocyte % 8.4 % Eosinophil % 1.0 % Basophil % 0.8 % Nucleated Red Blood Cells % 0.1 Laboratory test 04/29/2018 [facility] Erythrocyte Sed Rate 87 mm/Hr High 0-20 finding Laboratory test 04/14/2018 [facility] Partial Thrombo Time 35.1 seconds N 26.0- 36.3 finding PTT Inr/Protime 04/14/2018 [facility] Inr 0.90 N 0.77-1.02 Type & Screen 04/14/2018 [facility] Patient Blood Type O Negative Antibody Screen NEGATIVE Comp Metabolic Panel 04/14/2018 [facility] Sodium 138 mmol/L N 135-145 Potassium 3.9 mmol/L N 3.5-5.0 Chloride 99 mmol/L Low 101-111 Co2 Carbon Dioxide 29 mmol/L N 22-32 Anion Gap 10 mmol/L N 2-11 Glucose 101 mg/dL High 70-100 Blood Urea Nitrogen 23 mg/dL N 6-24 Creatinine 1.40 mg/dL High 0.67-1.17 BUN/Creatinine Ratio 16.4 N 8-20 Calcium 9.5 mg/dL N 8.6-10.3 Total Protein 6.6 g/dL N 6.4-8.9 Albumin 3.6 g/dL N 3.2-5.2 Globulin 3.0 g/dL N 2-4 Albumin/Globulin Ratio 1.2 N 1-3 Total Bilirubin 0.60 mg/dL N 0.2-1.0 Alkaline Phosphatase 67 U/L N 34-104 Alt 41 U/L N 7-52 Ast 39 U/L N 13-39 Egfr Non- 52.4 >60 Egfr 63.4 >60 14 CBC Auto Diff 04/14/2018 [facility] White Blood Count 7.6 10^3/uL N 3.5-10.8 Red Blood Count 4.37 10^6/uL N 4.00-5.40 Hemoglobin 14.4 g/dL N 14.0-18.0 Hematocrit 41 % Low 42-52 Mean Corpuscular Volume 94 fL N 80-94 Mean Corpuscular Hemoglobin 33 pg High 27-31 Mean Corpuscular HGB Conc 35 g/dL N 31-36 Red Cell Distribution Width 13 % N 10.5-15 Platelet Count 265 10^3/uL N 150-450 Mean Platelet Volume 7.8 fL N 7.4-10.4 Abs Neutrophils 5.3 10^3/uL N 1.5-7.7 Abs Lymphocytes 1.7 10^3/uL N 1.0-4.8 Abs Monocytes 0.5 10^3/uL N 0-0.8 Abs Eosinophils 0 10^3/uL N 0-0.6 Abs Basophils 0 10^3/uL N 0-0.2 Abs Nucleated RBC 0 10^3/uL Granulocyte % 70.0 % Lymphocyte % 22.6 % Monocyte % 6.3 % Eosinophil % 0.6 % Basophil % 0.5 % Nucleated Red Blood Cells % 0 Laboratory test 04/04/2018 [facility] Hemoglobin A1c 5.3% % 4.1- 5.7 finding (607)- - (a) CBC Electronic (a 04/04/2018 [facility] WBC 6.48 4.0-10.0 New) (607)- - RBC 4.47 3.93-6.0 Hemoglobin (Fma/CMC/CTX) 14.7 g/dL [...] Basophil% 0.6 % 0-1.2 Ua - Micro (Fma) 04/04/2018 [facility] Appearance clear (607)- - Color yellow Glucose, Urine (Fma/CMC/CTX) neg Bilirubin neg Ketones trace # SP Grav >=1.030 Blood neg PH 5.5 Protein neg Urobil 0.2 Nitrite neg Leukocytes (a/CMC/[facility]rex) neg Hyaline 8-10 /Lpf # Granular - /Lpf WBC (a,[facility]rex) 0-1 # RBC - Mucus small amount /Lpf # Epith - /Lpf Bacteria - /Hpf Amorphous - /Lpf Crystals, Fluid (Fma/CMC/CTX) - Z#Comments - Basic Metabolic Profile 04/04/2018 [facility] Caty([facility]) Sodium 136 mEq/L 134-149 Potassium 3.4 mEq/L Low 3.6-5.5 Chloride 99 mEq/L 94-112 Carbon Dioxide 27 mEq/L 21-32 Glucose 116 mg/dL High 70-105 BUN 23 mg/dL 6-26 Creatinine 1.3 mg/dL 0.6-1.4 BUN/Creat Ratio 17.7 CALC 8.0-36.0 Calcium 9.3 mg/dL 8.6-10.2 GFR Non- >60 ml/min/1.73m^ >=60 GFR >60 ml/min/1.73m^ >=60 Laboratory test 04/04/2018 [facility] Caty([facility]) CK 105 U/L 38-174 finding Urine Culture And 04/04/2018 [facility] Urine Culture SEE RESULT 15 Sensitivities BELOW Ua - Micro (a) 02/04/2018 [facility] Appearance clear (607)- - Color yellow Glucose, Urine (Fma/CMC/CTX) negative Bilirubin negative Ketones trace SP Grav 1.015 Blood trace-lysed # PH 5.5 Protein negative Urobil 0.2 Nitrite negative Leukocytes (Fma/CMC/[facility]rex) negative Hyaline - /Lpf Granular - /Lpf WBC (Fma,[facility]) - RBC 0-1 # Mucus SM AMT /Lpf # Epith - /Lpf Bacteria - /Hpf Amorphous - /Lpf Crystals, Fluid (Fma/CMC/CTX) - Z#Comments - CBC Electronic (a New) 02/04/2018 [facility] WBC 5.64 4.0-10.0 (607)- - RBC 4.82 3.93-6.0 Hemoglobin (Fma/CMC/CTX) 15.7 g/dL 12.0-17.0 Hematocrit (Fma/CMC/CTX) 46.1 % 35.0-50.0 Mean Corpuscular Vol 95.6 [...] 0.7-7.0 Basophil% 0.5 % 0-1.2 Laboratory test 02/04/2018 [facility](a) CK 172 U/L 38-174 16 finding Lipid Profile 02/04/2018 [facility](a) Cholesterol 267 mg/dL High 120-200 Triglycerides 134 mg/dL 30-200 HDL Cholesterol 83 mg/dL High 30-70 LDL (Calculated) 157 CALC High 0-129 VLDL Cholesterol 27 mg/dL 0-50 HDL Risk Factor 3.2 CALC 0.0-4.4 Comprehensive Metabolic 02/04/2018 [facility] Byrne(a) Sodium 139 mEq/L 134-149 Prof Potassium 3.9 mEq/L 3.6-5.5 Chloride 96 mEq/L [...] >60 ml/min/1.73m^ >=60 Type & Screen 12/12/2017 [facility] Patient Blood Type O Negative 17 Antibody Screen NEGATIVE Comp Metabolic Panel 12/03/2017 [facility] Sodium 137 mmol/L N 135-145 Potassium 4.0 mmol/L N 3.5-5.0 Chloride 96 mmol/L Low 101-111 Co2 Carbon Dioxide 31 mmol/L N 22-32 Anion Gap 10 mmol/L N 2-11 Calcium 9.2 mg/dL N 8.6-10.3 Albumin 4.0 g/dL N 3.2-5.2 Total Bilirubin 1.30 mg/dL High 0.2-1.0 Glucose 106 mg/dL High 70-100 Blood Urea Nitrogen 16 mg/dL N 6-24 Creatinine 0.97 mg/dL N 0.67-1.17 BUN/Creatinine Ratio 16.5 N 8-20 Total Protein 6.9 g/dL N 6.4-8.9 Globulin 2.9 g/dL N 2-4 Albumin/Globulin Ratio 1.4 N 1-3 Alkaline Phosphatase 61 U/L N 34-104 Alt 32 U/L N 7-52 Ast 40 U/L High 13-39 Egfr Non- 80.1 >60 Egfr 96.9 >60 18 Lipid Profile (Trig/Chol/HDL) 12/03/2017 [facility] Triglycerides 168 mg/dL 19 Cholesterol 288 mg/dL 20 HDL Cholesterol 70.7 mg/dL 21 LDL Cholesterol 184 mg/dL 22 Inr/Protime 12/03/2017 [facility] Inr 0.86 N 0.77-1.02 Laboratory test finding 12/03/2017 [facility] Partial Thrombo 34.9 seconds N 26.0-36.3 23 Time PTT Urine Culture And 12/03/2017 [facility] Urine Culture SEE RESULT BELOW 24 Sensitivities Urinalysis Profile 12/03/2017 [facility] Urine Color Yellow Urine Appearance Clear Urine Specific [place] 1.017 N 1.010-1.030 Urine pH 5.0 N 5-9 Urine Urobilinogen Negative Negative Urine Ketones Negative Negative Urine Protein Negative Negative Urine Leukocytes Negative Negative Urine Blood Negative Negative Urine Nitrite Negative Negative Urine Bilirubin Negative Negative Urine Glucose Negative Negative Urine White Blood Cell Absent Absent Urine Red Blood Cell Absent Absent Urine Bacteria Absent Absent Laboratory test finding 10/13/2017 [facility] (Fma) 1.0 0.9- 1.1 (607)- - Hemoglobin A1c (Fma) 5.4 % 4.1-5.7 Laboratory test finding 07/01/2017 [facility](fma) TSH 0.92 mIU/L 0.50-6.00 PSA 0.9 ng/mL 0.0-4.0 Laboratory test 07/01/2017 [facility] Hemoglobin A1c 5.5 % 4.1-5.7 finding (607)- - (Fma) Laboratory test 07/01/2017 [facility](fma) LDL, Direct 148 mg/dL High 0-130 finding CBC Electronic 07/01/2017 [facility](fma) WBC 6.8 4.0-10.0 Fma x10^3/UL RBC 4.67 x10^6/UL 3.93-6.00 HGB 15.2 g/dL 12.0-17.0 HCT 44 % 35-50 MCV 93.6 fL 80.0-95.0 MCH 32.5 pg High 25.6-32.2 MCHC 34.8 g/dL 32.2-36.0 RDW-CV 12.8 % 11.6-14.4 PLT 181 x10^3/UL 163-400 MPV 9.9 fL 9.4-12.4 [place]# 4.63 x10^3/UL 1.56-6.13 Lymph# 1.39 x10^3/UL 1.18-3.74 [place]# 0.62 x10^3/UL 0.24-0.82 Eos # 0.1 x10^3/UL 0.0-0.5 Baso # 0.04 x10^3/UL 0.01-0.08 [place]% 67.8 % 34.0-70.0 Lymph % 20.4 % 20.0-52.0 [place]% 9.1 % 5.0-12.0 Eos% 1.5 % 0.7-7.0 Baso% 0.6 % 0.1-1.2 Lipid Profile 07/01/2017 Jose Carlos Caty(a) Cholesterol 259 mg/dL High 120-200 Triglycerides 286 mg/dL High 30-200 HDL Cholesterol 54 mg/dL 30-70 LDL (Calculated) 148 CALC High 0-129 VLDL Cholesterol 57 mg/dL High 0-50 HDL Risk Factor 4.8 CALC High 0.0-4.4 Comprehensive Metabolic 07/01/2017 Jose Carlos Caty(a) Sodium 135 mEq/L 134-149 Prof Potassium 4.0 mEq/L 3.6-5.5 Chloride 95 mEq/L 94-112 Carbon Dioxide 26 mEq/L 21-32 Glucose 131 mg/dL High 70-105 25 BUN 16 mg/dL 6-26 Creatinine 1.0 mg/dL [...] >=60 GFR >60 ml/min/1.73m^ >=60 Laboratory test 07/13/2016 [facility] Inr (a) 1.0 0.9-1.1 finding (607)- - Basic Metabolic 07/13/2016 Jose Carlos Byrne([facility]) Sodium 134 mEq/L 134-149 Profile Potassium 4.1 mEq/L 3.6-5.5 Chloride 96 mEq/L 94-112 Carbon Dioxide 31 mEq/L 21-32 Glucose 104 mg/dL 70-105 BUN 21 mg/dL 6-26 Creatinine 1.1 mg/dL 0.6-1.4 BUN/Creat Ratio 19.1 CALC 8.0-36.0 Calcium 8.9 mg/dL 8.6-10.2 GFR Non- >60 ml/min/1.73m^ >=60 GFR >60 ml/min/1.73m^ >=60 Complete Blood Count 07/13/2016 Jose Carlos Byrne(a) WBC 6.0 x10^3/UL 3.6 -9.6 RBC 4.94 x10^6/UL 3.90-5.70 HGB 15.3 g/dL 12.1-17.2 HCT 46 % 36-50 MCV 92.0 fL 82.2-97.4 MCH 30.9 pg 27.6-33.3 MCHC 33.5 g/dL 33.0-35.5 RDW 14.8 % High 11.6-13.7 PLT 186 x10^3/UL 150-400 MPV 6.9 fL Low 7.4-10.4 Gran # 4.0 x10^3/UL 1.5-7.2 Lymph# 1.7 x10^3/UL 0.7-4.9 [place]# 0.3 x10^3/UL 0.1-0.9 Gran % 65.6 % 42.2-75.2 Lymph % 29.0 % 20.5-51.1 [place]% 5.4 % 1.7-9.3 Laboratory test 04/03/2016 Jose Carlos Byrne(a) Uric Acid 8.1 mg/dL 2.5- 9.2 finding Laboratory test 04/03/2016 [facility] Hemoglobin A1c 5.5 % 4.1-5.7 finding (607)- - (a) CBC Electronic 04/03/2016 [facility] WBC 5.9 3.6-9.6 (a) (607)- - RBC 4.86 3.90-5.70 Hemoglobin (Fma/CMC/CTX) 15.2 g/dL 12.1 - 17.2 Hematocrit (Fma/CMC/CTX) 46.4 % 36.1 - 50.3 Platelets 196 10^3/ul 150-400 Lymph% 25.2 % 17.0-48.0 Mixed% 4.7 Neutrophils % 70.1 Mean Corpuscular Vol 95 82.2-97.4 Mean Corpuscular Hemoglobin 31.3 27.6-33.3 Mean Corpuscular Hemo Concen 32.8 32.0-36.0 RDW 14.5 High 11.6-13.7 Mean Platelet Volume 6.6 5.5-11.0 Laboratory test 07/15/2015 [facility] Hemoglobin A1c 5.7 % 4.1-5.7 finding (607)- - (a) Laboratory test 07/15/2015 Jose Carlos Byrne(a) PSA 0.8 ng/mL 0.0-4.0 finding CBC Electronic 07/05/2015 [facility] WBC 5.7 3.6-9.6 (Fma) (607)- - RBC 4.72 3.90-5.70 Hemoglobin (Fma/CMC/CTX) 15.0 g/dL 12.1 - 17.2 Hematocrit (Fma/CMC/CTX) 45.7 % 36.1 - 50.3 Platelets 194 10^3/ul 150-400 Lymph% 25.9 % 17.0-48.0 Mixed% 3.9 Neutrophils % 70.2 Mean Corpuscular Vol 97 82.2-97.4 Mean Corpuscular Hemoglobin 31.8 27.6-33.3 Mean Corpuscular Hemo Concen 32.8 32.0-36.0 RDW 14.2 High 11.6-13.7 Mean Platelet Volume 7.3 5.5-11.0 Laboratory test finding 07/05/2015 Jose Carlos Byrne([facility]) TSH 1.36 mIU/L 0.50-6.00 Free T4 1.21 ng/dL 0.75-1.54 Lipid Profile 07/05/2015 Jose Carlos Byrne(a) Cholesterol 213 mg/dL High 120-200 Triglycerides 150 mg/dL 30-200 HDL Cholesterol 44 mg/dL 30-70 LDL (Calculated) 139 CALC High 0-129 VLDL Cholesterol 30 mg/dL 0-50 HDL Risk Factor 4.8 CALC High 0.0-4.4 Comprehensive Metabolic 07/05/2015 Jose Carlos Byrne([facility]) Sodium 143 mEq/L 134-149 Prof Potassium 4.0 mEq/L 3.6-5.5 Chloride 103 mEq/L 94-112 Carbon Dioxide 32 mEq/L 21-32 Glucose 119 mg/dL High 70-105 26 BUN 16 mg/dL 6-26 Creatinine 1.1 mg/dL [...] >=60 GFR >60 ml/min/1.73m^ >=60 Laboratory test 07/05/2015 Jose Carlos Byrne([facility]) Vitamin D25 73 30-100 27 finding Laboratory test 08/16/2014 [facility] Inr 0.92 N 0.78-1.07 finding Activated Partial Thrombo Time 35.3 seconds N 26.0-36.3 CBC Auto Diff 08/16/2014 [facility] White Blood Count 10.0 10^3/uL N 4.8-10.8 Red Blood Count 5.03 10^6/uL N 4.0-5.4 Hemoglobin 15.5 g/dL N 14.0-18.0 Hematocrit 47 % N 42-52 Mean Corpuscular Volume 93 fL N 80-94 Mean Corpuscular Hemoglobin 31 pg N 27-31 Mean Corpuscular HGB Conc 33 g/dL N 31-36 Red Cell Distribution Width 14 % N 10.5-15 Abs Neutrophils 6.8 10^3/uL N 1.5-7.7 Abs Lymphocytes 2.4 10^3/uL N 1.0-4.8 Abs Monocytes 0.6 10^3/uL N 0-0.8 Abs Eosinophils 0.1 10^3/uL N 0-0.6 Abs Basophils 0 10^3/uL N 0-0.2 Abs Nucleated RBC 0.02 10^3/uL N Granulocyte % 68.6 % N 38-83 Lymphocyte % 23.6 % Low 25-47 Monocyte % 5.9 % N 1-9 Eosinophil % 1.5 % N 0-6 Basophil % 0.4 % N 0-2 Nucleated Red Blood Cells % 0.2 N Platelet Count 206 10^3/uL N 150-450 Mean Platelet Volume 9 um3 N 7.4-10.4 Laboratory test finding 08/16/2014 [facility] Blood Culture SEE RESULT BELOW 28 Laboratory test finding 08/16/2014 [facility] Lactic Acid 1.1 mmol/L N 0.5-2.2 Comp Metabolic Panel 08/16/2014 [facility] Sodium 134 mmol/L N 133-145 Potassium 3.5 mmol/L N 3.5-5.0 Chloride 99 mmol/L Low 101-111 Co2 Carbon Dioxide 27 mmol/L N 22-32 Anion Gap 8 mmol/L N 2-11 Glucose 117 mg/dL High 70-100 Blood Urea Nitrogen 16 mg/dL N 6-24 Creatinine 1.07 mg/dL N 0.67-1.17 BUN/Creatinine Ratio 15.0 N 8-20 Calcium 9.3 mg/dL N 8.6-10.3 Total Protein 6.8 g/dL N 6.4-8.9 Albumin 3.8 g/dL N 3.2-5.2 Globulin 3.0 g/dL N 2-4 Albumin/Globulin Ratio 1.3 N 1-3 Total Bilirubin 0.70 mg/dL N 0.2-1.0 Alkaline Phosphatase 66 U/L N 34-104 Alt 23 U/L N 7-52 Ast 22 U/L N 13-39 Egfr Non- 72.3 N >60 Egfr 93.0 N >60 29 Ua - Non Micro (Fma) 07/11/2014 [facility] Appearance clear (607)- - Color yellow Glucose, Urine (Fma/CMC/CTX) neg Bilirubin neg Ketones neg SP Grav 1.020 Blood neg PH 7.0 Protein neg Urobil 0.2 Nitrite neg Leukocytes (Fma/CMC/[facility]) neg Lipid Profile 07/03/2014 Branch Caty([facility]) Cholesterol 221 mg/dL High 120-200 Triglycerides 193 mg/dL 30-200 HDL Cholesterol 42 mg/dL 30-70 LDL (Calculated) 140 CALC High 0-129 VLDL Cholesterol 39 mg/dL 0-50 HDL Risk Factor 5.3 CALC High 0.0-4.4 Laboratory test finding 07/03/2014 Jose Carlos Caty([facility]) TSH 1.51 mIU/L 0.50-6.00 Vitamin D25 56 30-100 Complete Blood Count 07/03/2014 Jose Carlos Byrne([facility]) WBC 6.2 x10^3/UL 3.6 -9.6 RBC 4.88 x10^6/UL 3.90-5.70 HGB 15.4 g/dL 12.1-17.2 HCT 46 % 36-50 MCV 94.0 fL 82.2-97.4 MCH 31.5 pg 27.6-33.3 MCHC 33.7 g/dL 33.0-35.5 RDW 13.3 % 11.6-13.7 PLT 200 x10^3/UL 150-400 MPV 7.9 fL 7.4-10.4 Gran # 4.0 x10^3/UL 1.5-7.2 Lymph# 1.9 x10^3/UL 0.7-4.9 [place]# 0.3 x10^3/UL 0.1-0.9 Gran % 62.3 % 42.2-75.2 Lymph % 32.4 % 20.5-51.1 [place]% 5.3 % 1.7-9.3 Laboratory test finding 07/03/2014 Branch Caty(a) PSA 0.6 ng/mL 0.0 -4.0 Comprehensive Metabolic 07/03/2014 Branch Caty(a) Sodium 141 mEq/L 134-149 Prof Potassium 4.7 mEq/L 3.6-5.5 Chloride 99 mEq/L 94-112 Carbon Dioxide 32 mEq/L 21-32 Glucose 123 mg/dL High 70-105 30 BUN 13 mg/dL 6-26 Creatinine 1.0 mg/dL 0.6-1.4 BUN/Creat Ratio 13.0 CALC 8.0-36.0 Calcium 9.5 mg/dL 8.6-10.2 Total Protein 6.7 g/dL 6.4-8.3 Albumin 4.1 g/dL 3.8-5.5 Globulin 2.6 g/dL 2.0-4.8 A/G Ratio 1.6 CALC 0.6-2.3 Alk. Phosphatase 61 U/L 22-95 Alt (SGPT) 27 U/L 7-35 Ast (Sgot) 23 U/L 5-34 Total Bilirubin 0.8 mg/dL 0.2-1.3 Surgical Pathology 08/14/2012 [facility] S RUN DATE: <SEE NOTE> Ua - Non Micro (a) 07/13/2012 [facility] Medicine Appearance clear (607)- - Color yellow Glucose - Bilirubin - Ketones - SP Grav 1.025 Blood - PH 5.0 Protein - Urobil 0.2 Nitrite - Leukocytes (a/[facility]) - Laboratory test 07/13/2012 Branch Caty(a) PSA 0.60 ng/mL 0.00-4.00 finding Laboratory test 07/13/2012 [facility] Hemoglobin A1c 5.4 % 4.1-5.7 finding (607)- - (a/[facility],CX) Comprehensive 07/08/2012 Branch Caty(a) Albumin 4.3 g/dL 3.8-5.5 Metabolic Prof Alk. Phos. 67 U/L 22-95 Alt [...] Ratio 15.1 Calc 8.0-36.0 Lipid Profile 07/08/2012 Jose Carlos Byrne([facility]) Cholesterol 234 mg/dL High 120-200 HDL 45 mg/dL 30-70 Triglycerides 199 mg/dL 30-200 HDL Risk Factor 5.2 CALC High 0.0-4.4 LDL (Calculated) 149 CALC High 0-129 VLDL (Calculated) 40 mg/dL 0-50 Laboratory test 07/08/2012 Jose Carlos Byrne(a) TSH 1.19 mIU/L 0.50-6.00 finding Laboratory test 07/08/2012 [facility] Urine Microalbumin <5.0 finding (607)- - (a) CBC Electronic 07/08/2012 [facility] WBC 5.5 3.6-9.6 ([facility]) (607)- - RBC 4.87 3.90-5.70 Hemoglobin (Fma/CMC/CTX) 15.3 g/dL 12.1 - 17.2 Hematocrit (Fma/CMC/CTX) 45.5 % 36.1 - 50.3 Platelets 173 10^3/ul 150-400 Lymph% 31.1 20.5-51.1 Mixed% 5.7 Neutrophils % 63.2 Mean Corpuscular Vol 93 82.2-97.4 Mean Corpuscular Hemoglobin 31.5 27.6-33.3 Mean Corpuscular Hemo Concen 33.7 32.0-36.0 RDW 13.8 High 11.6-13.7 Mean Platelet Volume 6.9 6.5-11.0 Laboratory test 07/08/2012 [facility] Vitamin D, 25 14.5 Low 30.0-100.0 32 finding 28 [facility] Oh ng/[place] [address] [phone] Laboratory test 07/06/2011 [facility] Hemoglobin 5.9 % High 4.1-5.7 finding (607)- - A1c (a/[facility],CX) Laboratory test 05/22/2011 Jose Carlos Byrne(a) PSA 0.70 0.00-4.00 finding ng/mL Comprehensive 05/22/2011 Jose Carlos Byrne(a) Albumin 4.6 g/dL 3.8-5.5 Metabolic Prof Alk. Phos. 63 U/L 22-95 Alt (SGPT) 24 U/L 10-40 Ast (Sgot) 23 U/L 5-34 BUN 23 mg/dL 6-26 Calcium 9.7 mg/dL 8.6-10.2 Chloride 99 mEq/L 94-112 Creatinine 1.2 mg/dL 0.6-1.4 Carbon Dioxide 26 mEq/L 21-32 Glucose 123 mg/dL High 70-105 33 Sodium 142 mEq/L 134-149 Total Bilirubin 0.6 mg/dL 0.2-1.3 Total Protein 7.1 g/dL 6.3-8.1 Potassium 5.4 mEq/L 3.6-5.5 Globulin 2.5 g/dL 2.0-4.8 A/G Ratio 1.8 Calc 0.6-2.2 BUN/Creat Ratio 18.9 Calc 8.0-36.0 Lipid Profile 05/22/2011 Jose Carlos Byrne(a) Cholesterol 242 mg/dL High 120-200 HDL 47 mg/dL 30-70 Triglycerides 223 mg/dL High 30-200 HDL Risk Factor 5.1 CALC High 0.0-4.0 LDL (Calculated) 150 CALC High 0-129 VLDL (Calculated) 45 mg/dL 0-50 Ua - Non Micro (a) 05/03/2011 [facility] Appearance clear (607)- - Color yellow Glucose - Bilirubin - Ketones trace SP Grav 1.025 Blood - PH 5.0 Protein - Urobil 0.2 Nitrite - Leukocytes (Fma/CMC/[facility]) - 1 PAIN IN RIGHT KNEE, EFFUSION, RIGHT KNEE, UNILATER 2 consistent w/ previous results 3 2 gold top sst tubes sent 4 Negative: < 0.8 Indeterminate: 0.8 - 0.9 Positive: > 0.9 The CDC recommends that a positive HCV antibody result be followed up with a HCV Nucleic Acid Amplification test (801905). 5 SEE RESULT BELOW Name: ZEB ALVAREZ : [address]: Julissa Lee MD Acct: [id number] Unit: [id number] AGE: 58 Location: [facility] Re07/14/18 SEX: M Status: REG REF SPEC: [id number] YOON: 07/14/[address] [facility] [address]: Julissa Lee MD REQ: [id number] RECD: 07/14/18 STATUS: COMP _ SOURCE: URINE SPDESC: ORDERED: Urine Culture COMMENTS: 2 urine BD Vacutainers with no additive 1 paredes urine top SPLIT SPECIMEN [id number] 2 FROZEN PLASMA from light blue tops filled to the lines Urine Source: Random Procedure Result Reported Site Urine Culture Final 07/15/18- 1603 ML No Growth (<1,000 CFU/mL) * ML - Main Lab . END OF REPORT DEPARTMENT OF PATHOLOGY, [address] [place] [address] Aristeo Saab M.D. Director [facility] # [id number] 6 2 urine BD Vacutainers with no additive 1 paredes urine top SPLIT SPECIMEN 2 FROZEN PLASMA from light blue tops filled to the lines [id number] 7 RESULTS VERIFIED BY REPEAT ANALYSIS 8 RESULTS VERIFIED BY REPEAT ANALYSIS 9 RESULTS VERIFIED BY REPEAT ANALYSIS 10 RESULTS VERIFIED BY REPEAT ANALYSIS 11 SEE RESULT BELOW Name: ZEB ALVAREZ : [address]: Luis E Valencia MD Acct: [id number] Unit: [id number] AGE: 57 Location: ED Re04/29/18 SEX: M Status: DEP ER SPEC: [id number] YOON: 04/29/[address] [facility] [address]: Kelly CALVIN REQ: [id number] RECD: 04/29/18 STATUS: MIKAELA JOHNSON DR: Julissa Valencia MD _ SOURCE: BLOOD,VENO SPDESC: ORDERED: Blood Cult Procedure Result Reported Site Aerobic Culture Bottle Final 05/04/18946 ML No Growth Day 5 Anaerobic Culture Bottle Final 05/04/18946 ML No Growth Day 5 * ML - Main Lab . END OF REPORT DEPARTMENT OF PATHOLOGY, [address] [place] [address] Aristeo Saab M.D. Director [facility] # [id number] 12 Because ethnic data is not always readily [...] 15-29 5 Kidney failure <15 (or dialysis) 13 [facility] Severe Sepsis and Septic Shock Management Bundle Measure requires all lactic acids initially measuring >2.0 mmol/L be repeated. 14 Because ethnic data is not always [...] 5 Kidney failure <15 (or dialysis) 15 SEE RESULT BELOW Name: ZEB ALVAREZ : [address]: Julissa Lee MD Acct: [id number] Unit: [id number] AGE: 57 Location: [facility] Re04/04/18 SEX: M Status: REG REF SPEC: [id number] YOON: 04/04/18-[address] [facility] [address]: Julissa Lee MD REQ: [id number] RECD: 04/04/18 STATUS: MIKAELA JOHNSON DR: Kelly Turner MD _ SOURCE: URINE SPDC: ORDERED: Urine Culture COMMENTS: [id number] 1 ferrer top urine vacutainer Copy Result to: Kelly TURNER ([id number]) Urine Source: Clean Catch Procedure Result Reported Site Urine Culture Final 04/05/18- 1630 ML No Growth (<1,000 CFU/mL) * ML - Main Lab . END OF REPORT DEPARTMENT OF PATHOLOGY, [address] [place] [address] Airsteo Saab M.D. Director [facility] # [id number] 16 FASTING 17 PAIN IN RIGHT HIP, BILATERAL PRIMARY OSTEOARTHRITI 18 Because ethnic data is not always readily [...] 15-29 5 Kidney failure <15 (or dialysis) 19 Desirable: <150 Borderline High: 150-199 High: 200-499 Very High: >500 20 Desirable: <200 Borderline High: 200-239 High: >239 21 Low: <40 Desirable: 40-60 High: >60 22 Desirable: <100 Near Optimal: 100-129 Borderline High: 130-159 High: 160-189 Very High: >189 23 [id number] FASTING 1 sst serum poured off SPLIT SPECIMENP 2 plasma poured off from light blue, FROZEN 24 SEE RESULT BELOW Name: ZEB ALVAREZ [place] : [address]: Julissa Lee MD Acct: [id number] Unit: [id number] AGE: 57 Location: [facility] Re12/03/17 SEX: M Status: REG REF SPEC: [id number] YOON: 12/03/17-[address] [facility] [address]: Julissa Lee MD REQ: [id number] RECD: 12/04/17-1020 STATUS: COMP _ SOURCE: URINE SPDESC: ORDERED: Urine Culture COMMENTS: FASTING 1 urine vaccutainer 1 URINE IN STERIL CUP 1 URINE SPUN DOWN IN CLEAR TUBE FOR MICRO Procedure Result Reported Site Urine Culture Final 12/04/17- 1448 ML No Growth (<1,000 CFU/mL) * ML - Main Lab . END OF REPORT DEPARTMENT OF PATHOLOGY, [address] [place] [address] Aristeo Saab M.D. Director [facility] # [id number] 25 RESULTS VERIFIED BY REPEAT ANALYSIS 26 consistent w/ previous results 27 FASTING 28 SEE RESULT BELOW Name: ZEB ALVAREZ : [address]: Gregg Bond MD Acct: [id number] Unit: [id number] AGE: 54 Location: ED Re08/16/14 SEX: M Status: DEP ER SPEC: [id number] YOON: 08/16/14-[address]: Candice CALVIN REQ: [id number] RECD: 08/16/14 STATUS: COMP [facility] DR: Gregg Lee MD _ SOURCE: BLOOD,VENO [facility]: ORDERED: Blood Cult Procedure Result Verified Site Aerobic Culture Bottle Final 08/21/142106 ML No Growth Day 5 Anaerobic Culture Bottle Final 08/21/142106 ML No Growth Day 5 * ML - MAIN LAB ([facility]) . END OF REPORT * ML=Testing performed at Main Lab DEPARTMENT OF PATHOLOGY, [address] [place] [address] Aristeo Saab M.D. Director [facility] # [id number] 29 Because ethnic data is not always readily [...] 15-29 5 Kidney failure <15 (or dialysis) 30 RESULTS VERIFIED BY REPEAT ANALYSIS 31 RUN DATE: 08/15/12 [facility] LAB LIVE PAGE 1 RUN TIME: [address] [place] [address] Specimen Inquiry Name: ZEB ALVAREZ : [address]: Henry Jorge MD Acct: [id number] Unit: [id number] AGE: 52 Location: ENDO Re08/14/12 SEX: M Status: REG REF SPEC: [id number] YOON: 08/14/12- SUBM DR: Henry Jorge MD REQ: [id number] RECD: 08/14/127 STATUS: DE JOHNSON DR: Julissa Lee MD [...] performed at Main Lab DEPARTMENT OF PATHOLOGY, [address] [place] [address] Aristeo Saab M.D. Director [facility] Permit #[id number] 32 Vitamin D deficiency has been defined by the [place] of [employer] and an Endocrine Society practice guideline as a level of serum 25-OH vitamin D less than 20 ng/mL (1,2). The Endocrine Society went on to further define vitamin D insufficiency as a level between 21 and 29 ng/mL (2). 1. IOM ([place] of [employer]). 2010. Dietary reference intakes for calcium and D. [place]: The National Academies Press. 2. Rachelle MF, Moiz PILLAI, Tenzin MARTINEZ, et al. Evaluation, treatment, and prevention of vitamin D deficiency: an Endocrine Society clinical practice guideline. JCEM. 2010; 96(7):1911-30. 33 RESULT LEIA'D Procedures Date Code Description Status 07/14/2018 90621 Electrocardiogram Complete Completed 12/03/2017 65243 Electrocardiogram Complete Completed 07/10/2016 61837 Electrocardiogram Complete Completed 08/29/2014 85747 Remove Skin Tags Up To 15 Completed 08/14/2012 15594914 Colonoscopy Completed 07/13/2012 48763 Vision Test- screening test of visual acuity, Completed quantitative, bila 03/24/2012 13187 Destruction-1 Beign Lesion Completed 07/06/2011 21860 Finger Or Heel Stick Completed Encounters Type Date Location Provider Dx Diagnosis Office Visit 07/14/2018 [facility] Office Julissa Chaudhry Z01.818 Encounter for other 3:00p Tommy Lee preprocedural examination M25.561 Pain in right knee M25.461 Effusion, right knee M17.11 Unilateral primary osteoarthritis, right knee L85.3 Xerosis cutis I10 Essential (primary) hypertension Office Visit 04/04/2018 2:40p Main Office Julissa Chaudhry Z01.818 Encounter for other Tommy Lee preprocedural examination R73.01 Impaired fasting glucose M25.551 Pain in right hip M16.0 Bilateral primary osteoarthritis of hip I10 Essential (primary) hypertension Office Visit 03/02/2018 3:00p Main Office Julissa Chaudhry E78.49 Other hyperlipidemia Tommy Lee I10 Essential (primary) hypertension M25.551 Pain in right hip Office Visit 12/03/2017 9:50a Main Office Julissa Chaudhry Z01.818 Encounter for other Tommy Lee preprocedural examination M25.551 Pain in right hip M16.0 Bilateral primary osteoarthritis of hip I10 Essential (primary) hypertension E11.9 Type 2 diabetes mellitus without complications Office Visit 10/13/2017 2:00p [facility] Office Julissa Chaudhry Z00.01 Encounter for Tommy Lee general adult medical exam w abnormal findings I10 Essential (primary) hypertension I87.2 Venous insufficiency (chronic) (peripheral) E66.09 Other obesity due to excess calories E11.9 Type 2 diabetes mellitus without complications Office Visit 03/18/2017 11:20a [facility] Office Julissa Eldridge Essential ( primary) Tommy Lee hypertension I83.893 Varicose veins of bi low extrem w oth complications Z00.01 Encounter for general adult medical exam w abnormal findings Office Visit 07/13/2016 [facility] Julissa Eldridge Essential (primary) 3:15p Office Tommy Lee hypertension Office Visit 07/10/2016 Main Office Julissa Chaudhry Z01.818 Encounter for other 10:20a Tommy Lee preprocedural examination I83.813 Varicose veins of bilateral lower extremities with pain B35.4 Tinea corporis I10 Essential (primary) hypertension Office Visit 06/21/2016 10:20a Main Office Julissa Chaudhry I87.2 Venous insufficiency Tommy Lee (chronic) (peripheral) B35.4 Tinea corporis Office Visit 04/24/2016 9:00a Main Office Xochitl Patel R60.0 Localized edema KITCHEN HAND Office Visit 04/20/2016 11:20a [facility] Julissa Chaudhry R60.0 Localized edema Tommy Lee Office Visit 04/08/2016 3:45p [facility] Xochitl Patel B35.3 Tinea pedis KITCHEN HAND L03.116 Cellulitis of left lower limb Office Visit 04/03/2016 9:15a Main Office LEXIE HaqP B35.3 Tinea pedis L03.116 Cellulitis of left lower limb Office Visit 11/18/2015 3:20p [facility] Julissa Chaudhry E66.09 Other obesity Tommy Lee due to excess calories M79.604 Pain in right leg Office Visit 07/15/2015 2:00p [facility] Julissa Chaudhry Z00.01 Encounter for Tommy Lee general adult medical exam w abnormal findings I10 Essential (primary) hypertension I83.93 Asymptomatic varicose veins of bilateral lower extremities R60.0 Localized edema E66.09 Other obesity due to excess calories R73.01 Impaired fasting glucose Office Visit 09/09/2014 4:30p Shawn Walsh 782.9 Skin & Office Terry, KITCHEN HAND Integumentary Tissue Other Symptoms 924.3 Contusion Toe Office Visit 08/29/2014 2:40p [facility] Julissa Chaudhry 701.9 Hypertrophic & Tommy Lee Atrophic Conditions Of Skin Unspec 782.9 Skin & Integumentary Tissue Other Symptoms Office Visit 07/11/2014 2:00p [facility] Julissa Chaudhry V70.0 Examination Tommy Lee General Medical Routine AT Health Care Facility 327.23 Obstructive Sleep Apnea Adult Pediatric 278.00 Obesity Unspec 401.9 Hypertension Unspec 782.9 Skin & Integumentary Tissue Other Symptoms v70.0 Examination General Medical Routine AT Health Care Facility Office Visit 11/09/2013 1:40p [facility] Office Julissa Chaudhry 278.00 Obesity Unspec Tommy Lee Office Visit 06/07/2013 9:40a [facility] Office Julissa Chaudhry 401.9 Hypertension Tommy Lee Unspec 278.00 Obesity Unspec Office Visit 03/08/2013 9:40a [facility] Office Julissa Chaudhry 719.46 Pain Joint Tommy Lee Lower Leg 401.9 Hypertension Unspec 278.00 Obesity Unspec Office Visit 02/09/2013 1:00p [facility] Office Julissa Chaudhry 719.46 Pain Joint Tommy Lee Lower Leg 401.9 Hypertension Unspec Office Visit 12/08/2012 3:20p [facility] Office Julissa Chaudhry 401.9 Hypertension Tommy Lee Unspec 278.00 Obesity Unspec Office Visit 10/23/2012 3:30p 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 Office Julissa Chaudhry 401.9 Maddy Lee M.D. Unspec 278.00 Obesity Unspec 995.3 Allergy Unspec Office Visit 07/13/2012 10:00a [facility] Office Julissa Chaudhry V70.0 Examination Tommy Lee General Medical Routine AT Health Care Facility 401.9 Hypertension Unspec 272.4 Hyperlipidemia Other Unspec 278.00 Obesity Unspec 790.21 Impaired Fasting Glucose v06.5 Tetanus Diphtheria (DT) V76.41 Screening Malignant Neoplasm Rectum V76.44 Screening For Malig Ac Prostate V72.0 Examination Eyes & Vision Office Visit 03/24/2012 9:40a [facility] Office Julissa Lee M.D. 786.2 Cough 401.9 Hypertension Unspec 327.23 Obstructive Sleep Apnea Adult Pediatric 278.00 Obesity Unspec 782.9 Skin & Integumentary Tissue Other Symptoms 702.19 Seborrheic Keratosis Other Office Visit 11/30/2011 3:30p [facility] Office Leann 477.9 Rhinitis Hilsdorf, Afnp-C Allergic Cause Unspec 381.81 Eustachian Tube Dysfunction Office Visit 11/03/2011 4:00p Main Office Leann Zavala, 786.2 Cough Afnp-C Office Visit 09/02/2011 4:00p Main Office Taylor Miller 401.9 Hypertension Unspec Tommy Payton 278.00 Obesity Unspec Office Visit 07/06/2011 4:30p Main Office Taylor Miller 790.21 Impaired Fasting Tommy Payton Glucose 272.4 Hyperlipidemia Other Unspec 401.9 Hypertension Unspec Office Visit 05/22/2011 9:00a Main Office Taylor Miller 401.9 Hypertension Unspec Tommy Payton Office Visit 05/03/2011 5:20p Main Office Taylor Miller V70.0 Examination General Tommy Payton [facility] Routine [facility] 401.9 Hypertension Unspec 278.00 Obesity Unspec Plan of Treatment 07/14/2018 - Julissa Lee M.D.Z01.818 Encounter for other preprocedural examinationComments:EKG - normal ekgLabs are normal, Cleared for surgery. LFT' s were elevated. They are coming down after stopping the pravastatin. He is negative for hepatitis of hemachromatosis.He will be eating bananas several times a week to bring up his mildly decreased potassium.He was already cleared by cardiology earlier in the year for his hip.Be sure to use miralax, prune juice, stool softeners if you get constipated from the pain meds.M25.561 Pain in right kneeM25.461 Effusion, right kneeM17.11 Unilateral primary osteoarthritis, right kneeL85.3 Xerosis cutisComments:lachydrin creme.. get it at your pharmacist. it is over the counter.slather your right leg with it twice a day to get rid of the dry skin.I10 Essential (primary) hypertensionAllComments :Medication Management Patient Understands medications he's taking? Yes No Are there Barriersto Adherence? Yes No Has the patient been asked about herbal supplements and therapies, and OTC meds? Yes No Care Plan1. Patient has been queried about patient's goals/preferencesand functional /lifestyle goals at relevant visits. If relevant, describe: na2. Treatment goals as explained to the patient: above3. Are there barriers to meeting treatment goals? Yes No If Yes, please describe:4. Self-Management goals as described to the patient: Yes No as above.
--- OUTSIDE RECORDS SUMMARY | 2018-08-10 08:50 | XMS REPORT | Continuity of Care Document ---
:1960 External Reference #:[id number] Author Name TonyBrigida Care Team Providers Name Role Phone Julissa Lee MD Primary Care Physician Unavailable Payers Date Identification Numbers Payment Provider Subscriber Policy Number: [id number] [facility] Zeb Alvarez PayID: [id number] [place] [address] Advance Directives Description No Information Available Problems Active Problems Provider Date Hypersomnia with sleep apnea Bryon Snowden M.D. Onset: 08/08/2014 Obstructive sleep apnea syndrome Inna Styles DNP, RN, Onset: 09/18/2014 [facility]- Localized, primary osteoarthritis Kelly Turner M.D. Onset: 10/31/2017 Acquired genu valgum Kelly Turner M.D. Onset: 10/31/2017 Localized, primary osteoarthritis of Kelly Turner M.D. 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 Cigarette Use Quit 21 Years Ago Tobacco Use Start: Unknown Chewing tobacco after stopped smoking ; chewed for 8 years Smoking Status Reviewed: 07/31/18 Chewing tobacco after stopped smoking ; chewed for 8 years ETOH Use Occasionally consumes 4-5 times a week alcohol Tobacco Use Start: Unknown End: Patient is a former Unknown smoker Exercise Type/Frequency Exercises sporadically Allergies, Adverse Reactions, Alerts Description No Known Drug Allergies Medications Active Medications SIG Qnty Indications Ordering Date Provider Metoprolol Succinate ER 1 tab by mouth Unknown 12/23/2014 50mg Tablet daily Omeprazole 1 tab by mouth Unknown 12/23/2014 20mg Tablet daily Hydrochlorothiazide 2 by mouth Unknown 50mg Tablets every day Cinnamon 1 capsule by Unknown 1000mg Capsules mouth daily C Pap wears nightly Unknown Amlodipine Besylate 1 by mouth Unknown 5mg Tablets every day History Medications Indomethacin take 1 capsule by 90caps Z47.1 Kelly Turner, 06/12/2018 - 25mg Capsules mouth every 8 M.D. 07/26/2018 hours maximum daily dose=3 Eliquis Take 1 tablet by 60tabs Andres 04/26/2018 - 2.5mg Tablets mouth twice daily MD Jesús 06/11/2018 Oxycodone-Acetaminophen 1-2 by mouth every 70tabs Kelly Turner, 2018 - 5-325mg 4-6 hours as M.D. 05/07/2018 Tablets needed for post-op pain. max 10 per day Colace 1 tab every 12 90caps Kelly Turner, 04/26/2018 - 100mg Capsules hours as needed M.D. 05/07/2018 for constipation Compression Stockings Wear during the M17.11 Jean-Claude 02/07/2015 - [place] day, remove at [facility] MJeremiah 12/21/2017 night Vitamin D-3 every day by mouth Unknown 12/23/2014 - 2000mg 09/14/2016 Flax Seed Oil every day by mouth Unknown 12/23/2014 - 1400mg 10/30/2017 Cinnamon every day by mouth Unknown 12/23/2014 - 1000mg 10/30/2017 Aspirin every day by mouth Unknown 12/23/2014 - 325mg 10/30/2017 Irbesartan as directed Unknown 12/23/2014 - 150mg 12/20/2017 Hydrochlorothiazide as directed Unknown 12/23/2014 - 25mg 12/20/2017 Naproxen 1 tablet with food 40tabs Kelly Turner, 02/13/2013 - 500mg Tablets po bid M.D. 09/14/2016 Avapro 1 tab by mouth Unknown - 150mg Tablets daily 07/30/2018 Aspirin take 1 by mouth Unknown - 325mg Tablets daily 12/21/2017 Pravastatin Sodium take one tablet by Unknown - 20mg Tablets mouth at bedtime 12/21/2017 Pravastatin Sodium 1 tab hs Jesus, - 40mg Tablets Julissa Chaudhry MD 07/30/2018 Augmentin one twice a day Unknown - 875-125mg Tablets for 7 days 05/07/2018 Medications Administered in Office Medication SIG Qnty Indications Ordering Provider Date Depomedrol 40MG Kelly Turner M.D. 10/31/2017 Injection Depomedrol 80MG Kelly Turner M.D. 02/07/2015 Injection Influenza Virus Vaccine Unknown 11/26/2013 Injection Depomedrol 80MG Kelly Turner M.D. 02/13/2013 Injection Immunizations Description No Information Available Vital Signs Date Vital Result Comment 07/31/2018 1:27pm Height 71 inches 5'11" Weight 248.00 lb Heart Rate 84 /min BP Systolic 147 mmHg BP Diastolic 94 mmHg Body Temperature 98.8 F BMI (Body Mass Index) 34.6 kg/m2 07/10/2018 3:58pm Height 71 inches 5'11" Weight 262.00 lb Heart Rate 60 /min BP Systolic 158 mmHg BP Diastolic 88 mmHg Pain Level 0 BMI (Body Mass Index) 36.5 kg/m2 06/12/2018 11:16am Height 71 inches 5'11" Weight 261.00 lb BP Systolic 119 mmHg BP Diastolic 66 mmHg Respiratory Rate 16 /min Pain Level 3 BMI (Body Mass Index) 36.4 kg/m2 05/08/2018 2:25pm Height 71 inches 5'11" Weight 260.00 lb Heart Rate 101 /min BP Systolic Sitting 132 mmHg BP Diastolic Sitting 72 mmHg Pain Level 4 BMI (Body Mass Index) 36.3 kg/m2 05/01/2018 1:53pm Height 71 inches 5'11" Weight 260.00 lb Heart Rate 82 /min BP Systolic Sitting 118 mmHg BP Diastolic Sitting 78 mmHg Body Temperature 99.6 F Pain Level 6 BMI (Body Mass Index) 36.3 kg/m2 04/14/2018 10:40am Height 71 inches 5'11" Weight [...] Date Facility Test Result H/L Range Note CBC Auto Diff 04/14/2018 [facility] White Blood 7.6 10^3/uL N 3.5-10.[address] [place] [address] [phone] Red Blood Count 4.37 10^6/uL N 4.00-5.40 [...] % Nucleated Red Blood Cells % 0 Comp Metabolic Panel 04/14/2018 [facility] Sodium 138 mmol/L N 135-[address] [place] [address] [phone] Potassium 3.9 mmol/L N 3.5-5.0 Chloride 99 [...] Egfr Non- 52.4 >60 Egfr 63.4 >60 1 Type & Screen 04/14/2018 [facility] Patient Blood Type O Negative [address] [place] [address] [phone] Antibody Screen NEGATIVE Inr/Protime 04/14/2018 [facility] Inr 0.90 N 0.77-1.[address] [place] [address] [phone] Laboratory test 04/14/2018 [facility] Partial 35.1 seconds N 26.0-36.[address] [place] [address] Time PTT [phone] Urine Culture And 04/04/2018 [facility] Urine SEE RESULT [address] Culture BELOW [place], [place] [id number] [phone] Type & Screen 12/12/2017 [facility] Patient O Negative [address] [place] [address] [phone] Antibody Screen NEGATIVE 1 Because ethnic data is not always readily [...] 15-29 5 Kidney failure <15 (or dialysis) 2 SEE RESULT BELOW Name: ZEB ALVAREZ : [address]: Julissa Lee MD Acct: [id number] Unit: [id number] AGE: 57 Location: [facility] Re04/04/18 SEX: M Status: REG REF SPEC: [id number] YOON: 04/04/18 [facility] DR: Julissa Lee MD REQ: [id number] RECD: 04/04/18 STATUS: MIKAELA JOHNSON DR: Kelly Turner MD _ SOURCE: URINE SPDESC: ORDERED: Urine Culture COMMENTS: [id number] ferrer top urine vacutainer Copy Result to: Kelly TURNER ([id number]) Urine Source: Clean Catch Procedure Result Reported Site Urine Culture Final 04/05/18- 1630 ML No Growth (<1,000 CFU/mL) * ML - Main Lab . END OF REPORT DEPARTMENT OF PATHOLOGY, [address] [place] [address] Aristeo Saab M.D. Director [facility] # [id number] 3 PAIN IN RIGHT HIP, BILATERAL PRIMARY OSTEOARTHRITI Procedures Date Code Description Status 04/25/201820824 THR Total Hip Replacement Completed 04/25/201829983 THR Total Hip Replacement Completed 04/25/201817875 THR Total Hip Replacement Completed 01/16/2018 39290 ECHO Transthoracic, Real-Time 2D With Doppler And Color Completed Flow 01/16/2018 73516 ECHO Transthoracic, Real-Time 2D With Doppler And Color Completed Flow 12/22/2017 54256 EKG Tracing & Interpretation Completed 12/09/2017 42765 Treadmill Interp/Report Only Completed 12/09/2017 29715 Stress Test Supervsn W/Out I/R Completed 10/31/2017 44441 Inject/Drain Joint/Bursa Major W/O US Completed 02/07/2015 40653 Inject/Drain Joint/Bursa Major W/O US Completed 09/18/2014 90595 Polysomnography Sleep Staging 4+ Parameters W/Cpap Completed 03/23/2013 69110 Rad Exam; Hip Unilat Comp Completed 03/23/2013 12264 Rad Exam; Pelvis Completed 02/13/2013 97791 Rad Exam; Knee Comp Completed 02/13/2013 80961 Rad Exam; Knee Comp Completed 02/13/2013 80574 Xray Knee 3 Views Completed 02/13/2013 45666 Xray Knee 3 Views Completed 02/13/2013 93762 Inject/Drain Joint/Bursa Major W/O US Completed Encounters Type Date Location Provider Dx Diagnosis Office Visit 07/10/2018 Orthopedic Kelly Turner, M25.561 Pain in right 3:15p Services Of Pooja Sanders knee M25.461 Effusion, right knee M17.11 Unilateral primary osteoarthritis, right knee Office Visit 04/26/2018 11:03a [facility],pc Yamilet Hiader, (primary) Hospitalists [employer] hypertension I25.10 Athscl heart disease of [place] coronary artery w/o ang pctrs G47.33 Obstructive sleep apnea (adult) (pediatric) K21.9 Gastro-esophageal reflux disease without esophagitis Office Visit 04/25/2018 11:02a [facility],jessica Bass NP (primary) Hospitalists hypertension G47.33 Obstructive sleep apnea (adult) (pediatric) E78.5 Hyperlipidemia, unspecified Office Visit 04/10/2018 Orthopedic Tere D21.11 Mason neoplm of 10:00a Services Of Tommy Pearce connctv/soft tiss C.M.A. 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 M.D. hip M16.51 Unilateral post-traumatic osteoarthritis, right hip Office Visit 02/23/2018 3:00p Lyn Camilo S. E66.9 Obesity, Cardiology Of Tommy Cervantes unspecified Rn Lpn Cna G47.33 Obstructive sleep apnea (adult) (pediatric) I10 Essential (primary) hypertension Z01.810 Encounter for preprocedural cardiovascular examination I25.10 Athscl heart disease of [place] coronary artery w/o ang pctrs I77.819 Aortic ectasia, unspecified site M16.0 Bilateral primary osteoarthritis of hip E78.5 Hyperlipidemia, unspecified Office Visit 12/22/2017 3:40p [facility] Ton S. I10 Essential Tommy Cervantes (primary) hypertension R94.31 Abnormal electrocardiogram [ECG] [EKG] E78.4 Other hyperlipidemia E66.9 Obesity, unspecified G47.33 Obstructive sleep apnea (adult) (pediatric) Z01.810 Encounter for preprocedural cardiovascular examination Office Visit 12/01/2017 Pulmonology And Inna G47.33 Obstructive sleep 9:30a Sleep Services Of SERA Styles RN, apnea (adult) [facility]- (pediatric) I10 Essential (primary) hypertension Z68.36 [...] Services Of SERA Styles RN, apnea (adult) [facility] (pediatric) Office Visit 08/05/2015 Pulmonology And Inna G47.33 Obstructive sleep 3:30p Sleep Services Of SERA Styles RN, apnea (adult) [facility] (pediatric) Office Visit 03/17/2015 Orthopedic Kelly Turner, M17.11 Unilateral 10:30a Services Of Tommy primary C.M.AForest osteoarthritis, right knee 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 780.53 Hypersomnia W/ 3:30p Sleep Services Of Tommy Snowden Sleep Apnea Rn Lpn Cna Unspecified Office Visit 03/23/2013 Orthopedic Kelly Turner, 715.16 Osteoarthrosis 9:30a Services Of Tommy Localized Prim C.M.A. Lower Leg 715.95 Osteoarthrosis Unspec Genlzd Or Localized Pelvic & Thigh Office Visit 02/13/2013 9:30a Orthopedic Kelly 715.16 Osteoarthrosis Services Of Tommy Turner Localized Prim Lower C.M.A. Leg Plan of Treatment Future Appointment(s):08/10/2018 11:15 am - JOCE Contreras at [facility]08/10/2018 11:15 am - MARIXA Valencia at [facility]08/10/2018 11:15 am - Kelly Turner M.D. at [facility]07/31/2018 - Kelly Turner M.D.M25.561 Pain in right kneeNew Xrays:Knee 3 Views RT, Ordered: 07/31/18Follow up:Follow up: 2 weeks after jxrbwbjS59.461 Effusion, right kneeM17.11 Unilateral primary osteoarthritis, right knee
[2018-08-10] MEDS ORDERED: KETAMINE HCL* 50 MG/ML 10 ML VIAL ONE (08:56)
[2018-08-10] MEDS ORDERED: Midazolam* 1 MG/ML 10 ML VIAL (10 MG) ONE (08:56)
[2018-08-10] MEDS ORDERED: fentaNYL* 50 MCG/ML 2 ML VIAL (100 MCG VIAL) ONE (08:56)
[2018-08-10] MEDS ORDERED: Ondansetron ODT TAB* 4 MG ONE (09:18)
[2018-08-10] MEDS ORDERED: Gabapentin CAP(*) 300 MG ONE (09:18)
[2018-08-10] MEDS ORDERED: Dexamethasone TAB* 4 MG ONE (09:19)
[2018-08-10] MEDS ORDERED: Famotidine IV* 10 MG/ML 2 ML (20 mg) ONE (09:19)
[2018-08-10] MEDS ORDERED: celeCOXIB CAP* 200 MG ONE (09:19)
[2018-08-10] MEDS ORDERED: ceFAZolin 2 GM PREMIX in ORs 2 GM/50 ML BAG IVPB ONE (09:19)
[2018-08-10] MEDS ORDERED: Buffered Lidocaine 1% SYRIN* 1 ML/SYRINGE INTRADERM ONE (09:19)
[2018-08-10] MEDS ORDERED: ROPIVACAINE 5 MG/ML 30 ML BTL (0.5%) ONE (12:34)
[2018-08-10] MEDS ORDERED: hydrALAZINE IV* 20 MG/ML VIAL ONE (12:40)
[2018-08-10] MEDS ORDERED: Flumazenil* 0.1 MG/ML 5 ML MDV ONE (12:40)
[2018-08-10] MEDS ORDERED: Bupivacaine 0.5% SDV PF* 30ML VIAL ONE (12:40)
[2018-08-10] MEDS ORDERED: Bupivacaine 0.25% SDV PF* 10 ML VIAL INJ ONE (12:40)
[2018-08-10] MEDS ORDERED: Propofol* 500 MG/50 ML BTL ONE (12:40)
[2018-08-10] MEDS ORDERED: Metoprolol Tartrate IV* 1 MG/ML 5 ML VIAL ONE (12:40)
[2018-08-10] MEDS ORDERED: Lidocaine 2% PF * 5 ML VIAL ONE (12:40)
[2018-08-10] MEDS ORDERED: Propofol* 10 MG/ML 20 ML BTL ONE (13:09)
[2018-08-10] MEDS ORDERED: Magnesium Hydroxide LIQ* 30 ML UDC PO PRN (13:32)
[2018-08-10] MEDS ORDERED: Ondansetron TAB* 4 MG PO PRN (13:32)
[2018-08-10] MEDS ORDERED: Bisacodyl SUPP* 10 MG SUPP PR PRN (13:32)
[2018-08-10] MEDS ORDERED: Polyethylene Glycol 3350* 17 GM PACKET PO PRN (13:32)
[2018-08-10] MEDS ORDERED: diPHENhydraMINE IV* 50 MG/ML 1 ml VIAL (BENADRYL) IV PRN (13:32)
[2018-08-10] MEDS ORDERED: Ondansetron INJ* 2 MG/ML VIAL IV PRN (13:32)
[2018-08-10] MEDS ORDERED: oxyCODONE/Acetamin 5/325 MG* TAB PO PRN (13:32)
[2018-08-10] MEDS ORDERED: ceFAZolin 1 GM ADVAN(*) 1 GM in NS 0.9% 50 ML* 50 ML IVPB SCH (14:00)
[2018-08-10] MEDS ORDERED: Lactated Ringers 1000 ML Bag* 1,000 ML IV SCH (14:00)
--- NOTE | 2018-08-10 17:11 | CONS ---
CC: Dr. Lee; Dr. Cervantes; Dr. Turner * CONSULTATION REPORT: DATE OF CONSULT: 08/10/18 TIME OF EVALUATION: 2:30 p.m. PRIMARY CARE PROVIDER: Dr. Lee. SALES PROGRAM MANAGER: Dr. Cervantes. REQUESTING PHYSICIAN: Dr. Turner. REASON FOR CONSULT: Management of comorbidities. HISTORY OF PRESENT ILLNESS: Mr. Yung is a 58-year-old male with a past medical history of hypertension, GERD, sleep apnea, moderate coronary artery disease, who presented to [facility] on 08/10/18 for an elective right total knee arthroplasty. He is being followed by Dr. Turner and failed conservative treatment. He was recently seen by Dr. Cervantes and his impression was that the patient was asymptomatic from a cardiac standpoint, and that he had a cardiac CTA done at [facility] that showed left main disease less than 50%, proximal LAD more than 50% but not critical, left circumflex 50% stenosis, and RCA with no significant disease. He had discussed the results of the CTA and his recommendation was for very aggressive medical therapy, but he did not think the patient needed any further testing prior to his surgical procedure. As per surgical report, the patient underwent a right total knee arthroplasty under spinal anesthesia with estimated blood loss of 250 mL and no significant complications were reported. At the time of my interview, the patient states that he is feeling well and his major concern was about his puppy dog at home, but he was reassured that his had already gone and taking care of his puppy. PAST MEDICAL HISTORY: 1. Obesity with a BMI of 34. 2. Hypertension. 3. Hyperlipidemia. 4. Coronary artery disease as described above. 5. Obstructive sleep apnea. PAST SURGICAL HISTORY: 1. Status post drop foot repair. 2. Status post right total hip arthroplasty. 3. Status post tonsillectomy. 4. Surgery for skull fracture. MEDICATION LIST: 1. Amlodipine 5 mg p.o. daily. 2. Hydrochlorothiazide 25 mg p.o. daily. 3. Metoprolol succinate 50 mg p.o. daily. 4. Omeprazole 20 mg p.o. daily. ALLERGIES: No known drug allergies. FAMILY HISTORY: COPD, stroke, and coronary artery disease. SOCIAL HISTORY: There is no history of tobacco or drug use. He drinks 6 to 8 beers a week. Surrogate decision maker is his , Jaswant Yung, phone number is [phone]. REVIEW OF SYSTEMS: A 10-point review of systems was performed and all the pertinent negative and positive findings are in the HPI. PHYSICAL EXAM: Vital Signs: Temperature 97, heart rate is 65, respiratory rate is 15, oxygen saturation is 100% on room air, blood pressure is 144/79. General: The patient is a pleasant, obese gentleman, lying in bed, in no acute distress. HEENT: Pupils are equal. Moist mucous membranes. CVS: Normal S1, S2. Regular rate and rhythm. Chest: Breath sounds bilaterally with no added sounds. Abdomen is obese. Bowel sounds present. Extremities: The patient has a clean dressing intact to his right knee and he is recovering from anesthesia. Neuro: He is alert and oriented x3. Able to move all 4 extremities. ASSESSMENT AND PLAN: Mr. Yung is a 58-year-old male with a past medical history of hypertension, hyperlipidemia, obesity with a BMI of 34, nonobstructive coronary artery disease, obstructive sleep apnea, who was admitted for an elective right total knee arthroplasty. 1. Coronary artery disease. Stable. We will continue metoprolol. 2. Hypertension. The patient was hypertensive on his arrival to the hospital today, likely secondary to anxiety prior to surgery. His blood pressure is better controlled now and we will continue his metoprolol, hydrochlorothiazide, amlodipine, and monitor his blood pressure. 3. Obstructive sleep apnea. We will continue his CPAP. 4. DVT prophylaxis: As per orthopedist's decision, the patient will be on Eliquis. 5. Code status is full. TIME SPENT: Approximately 45 minutes was spent with the patient's interview, medical records review, physical examination to complete this consultation, more than half of this time was spent [id number] with the patient and coordination of care. [id number]/[facility] #: [id number] JERZY
--- NOTE | 2018-08-10 17:14 | PN ---
Progress Note - Progress Note Date of Service: 08/10/18 Note: in recovery room, resting, no complaints; 1+ DP pulse felt and heard with doppler, know previous right drop foot and diminished sensation, dressing c/d/i
[2018-08-10] MEDS: Acetaminophen TAB* 325 MG PO SCH ×2 (18:01→20:03)
--- NOTE | 2018-08-10 18:48 | OP ---
Operative Report - Blank - Operative Report Date of Operation: 08/10/18 Note: ANISA ALVAREZ 1960 Date of Surgery: 08/10/18 Kelly Turner MD Hotel Staff Member: Mary CALVIN did help throughout the procedure with preparation of the knee, wound retraction, manipulation of the knee, and wound closure. Anesthesiologist: Slim ROCK Anesthesia Type: General Preoperative Diagnosis: Right severe degenerative osteoarthritis of the knee Postoperative Diagnosis: As above Procedure Performed: Right Total Knee Arthroplasty Tourniquet time: 48 minutes Complications: None Specimen: Bone and cartilage from the right knee joint sent to pathology. Hardware Used: Cemented Macedo [employer] Nephew total knee hardware was used - For the femur a size 6 right oxinium legion posterior stabilized femoral component, for the tibia a size 6 right shiva II tibial baseplate, for the insert a size 9mm 5-6 posterior stabilized articular polyethylene insert, and for the patella a size 32 3-peg all poly patella. Brief History/Indication: ANISA ALVAREZ was known in clinic and had a history of severe right knee pain and swelling. He failed conservative treatment with anti-inflammatories, pain pills, intra-articular injections and physical therapy. He elected to undergo right total knee arthroplasty due to continued pain and decreased quality of life. Radiographs showed severe end stage osteoarthritis of the knee with bone on bone contact. Informed consent was obtained from the patient. He understood the risks of surgery included but were not limited to: bleeding, infection, damage to nearby structures, intraoperative fracture, nerve palsy, failure of the hardware, early loosening, knee stiffness or loss of motion, anesthesia complications, stroke, heart attack , blood clot and . He wished to proceed. Intra-Operative Findings: Intraoperatively the patient was noted to have severe loss of cartilage in all 3 compartments of the knee. Description of the Procedure: ANISA ALVAREZ was identified in the preanesthesia unit. His right knee was marked as the correct operative side. Informed consent was signed and placed in the chart. The patient was taken to the operating room and placed under anesthesia without complication. A laboy catheter was placed. A tourniquet was placed on the right thigh. The right lower extremity was prepped and draped in the usual sterile fashion. Preoperative time-out was made to correctly identify the patient, side and site. Appropriate intraoperative antibiotics were given within one hour of incision. Tourniquet was inflated. A midline incision was made and carried sharply down to the extensor mechanism. A new 10 blade was used to make a standard medial parapatellar arthrotomy. The patella was subluxed laterally. Electrocautery was used to dissect soft tissue off the superomedial tibia to the midsagittal plane. The knee was flexed up. The anterior horn of the lateral meniscus and the ACL were sharply incised. A drill was used to enter the distal femur. The intramedullary distal femoral cutting guide was pinned on the distal femur. The oscillating saw was used to make the distal femoral cut. The external rotation guide was pinned on the distal femur and the distal femur was sized to a size 6. The size 6 multi-cutting jig was pinned on the distal femur. The oscillating saw was used to make the appropriate 4 chamfer cuts. Next the PCL was completely released. The extramedullary tibial cutting guide was pinned on the proximal tibia and the oscillating saw was used to make the proximal tibial cut perpendicular to the mechanical axis of the tibia. The bone was carefully removed. The knee was brought out into full extension. The spacer block was placed and had excellent fit with the knee in full extension. The medial and lateral ligaments were well balanced. The flexion and extension gaps were well balanced. The knee was flexed up. Lamina division manager was placed both medially and laterally. Any remaining meniscus was removed with electrocautery. Curved osteotome was used to remove any posterior osteophytes. The tibial tray and drop nilesh were placed and confirmed a satisfactory tibial cut. The size 6 right femoral trial was impacted onto the distal femur. This trial had excellent fit and stability. The box for the posterior stabilized implant was prepared using a box cut osteotome and a reamer. Next a tibial tray trial and 9 mm insert trial was placed. The knee was taken through a range of motion and had full extension to 130 degrees of flexion. Patellofemoral tracking was satisfactory. The patella was inverted and sized to a size 32. Three peg holes were drilled through the size 32 drill guide. The trial patella was placed and the knee was taken through a range of motion. There was satisfactory patellofemoral tracking. All trials were removed. The tibia was subluxed anteriorly and sized to a size 6. The proximal tibial was prepared with a size 6 keel punch. All bony cut surfaces were irrigated with sterile saline and dried. Final implants were cemented into place starting with the tibia, followed by the femur, and last the patella. A 9 mm insert trial was placed and the knee was brought into full extension. Tourniquet was turned down and the knee was copiously irrigated with sterile saline. Electrocautery was used to obtain meticulous hemostasis. Once the cement had fully cured, the insert trial was removed. Any excess cement was removed from around the hardware and capsule. Final insert chosen was a 9 mm posterior stabilized Shiva II articular insert size 5-6. Stability of the insert was checked and noted to be stable. The extensor mechanism was closed using number 1 vicryls. The rest of the incision was closed in a layered fashion using 0 and 2-0 vicryls. The skin was closed using 3-0 nylon suture. Sterile xeroform, 4x4s and webril were used to cover the incision. Ted wrap and cold pack were used to cover the dressings. The patients anesthesia was reversed without difficulty. He was taken to the PACU in stable condition. Intended weight-bearing will be as tolerated.
[2018-08-10] MEDS: oxyCODONE/Acetamin 5/325 MG* TAB PO PRN (19:26)
[2018-08-10] MEDS: Magnesium Hydroxide LIQ* 30 ML UDC PO SCH (19:27)
[2018-08-10] MEDS: Docusate CAP* 100 MG PO SCH (19:27)
[2018-08-10] MEDS: ceFAZolin 1 GM ADVAN(*) 1 GM in NS 0.9% 50 ML* 50 ML IVPB SCH (20:08)
[2018-08-10] MEDS: oxyCODONE TAB* 5 MG TAB PO PRN (22:26)
[2018-08-10] MEDS: traMADol TAB* 50 MG PO PRN (22:26)
[2018-08-10] MEDS: Cyclobenzaprine TAB* 10 MG PO PRN (22:27)
[2018-08-11] MEDS: oxyCODONE/Acetamin 5/325 MG* TAB PO PRN ×3 (00:44→21:38)
[2018-08-11] MEDS: Acetaminophen TAB* 325 MG PO SCH ×3 (04:28→22:02)
[2018-08-11] MEDS: ceFAZolin 1 GM ADVAN(*) 1 GM in NS 0.9% 50 ML* 50 ML IVPB SCH ×2 (05:28→11:28)
[2018-08-11 06:12] LABS: Hematocrit 39 % (42-52); Hemoglobin 13.5 g/dL (14.0-18.0); Mean Platelet Volume 7.6 fL (7.4-10.4); Platelet Count 143 10^3/uL (150-450)
[2018-08-11 06:26] LABS: BUN/Creatinine Ratio 13.9 (8-20); Calcium 8.9 mg/dL (8.6-10.3); EGFR African American 92.1 (>60); EGFR Non-African American 76.1 (>60); Potassium 3.3 mmol/L (3.5-5.0)
[2018-08-11] MEDS: Docusate CAP* 100 MG PO SCH ×2 (08:31→21:37)
[2018-08-11] MEDS: Hydrochlorothiazide TAB* 25 MG PO SCH (08:31)
[2018-08-11] MEDS: Apixaban* 2.5 MG TAB PO SCH ×2 (08:31→21:40)
[2018-08-11] MEDS: Metoprolol Succinate XL TAB* 50 MG PO SCH (08:31)
[2018-08-11] MEDS: Magnesium Hydroxide LIQ* 30 ML UDC PO SCH ×2 (08:31→21:41)
[2018-08-11] MEDS: Potassium Chlor TAB* 20 MEQ TAB.ER PO SCH ×2 (08:31→21:40)
[2018-08-11] MEDS: amLODIPine TAB* 5 MG PO SCH (08:32)
[2018-08-11] MEDS: traMADol TAB* 50 MG PO PRN ×2 (08:32→14:46)
[2018-08-11] MEDS: Pantoprazole TAB * 40 MG TAB PO SCH (08:32)
[2018-08-11] MEDS ORDERED: Metoprolol Succinate XL TAB* 50 MG PO SCH (09:00)
[2018-08-11] MEDS ORDERED: Hydrochlorothiazide TAB* 25 MG PO SCH (09:00)
[2018-08-11] MEDS ORDERED: amLODIPine TAB* 5 MG PO SCH (09:00)
--- NOTE | 2018-08-11 09:06 | PN ---
Progress Note - Progress Note Date of Service: 08/11/18 SOAP: Subjective: POD #1 Right TKA doing well. Has had some mild confusion possibly due to pain meds. States that pain is controlled. Denies CP/SOB, n/v, f/c or calf pain Objective: Vital Signs: Temp Pulse Resp BP Pulse Ox 97.5 F 77 18 138/93 96 08/11/18 07:17 08/11/18 07:17 08/11/18 08:32 08/11/18 07:17 08/11/18 07:17 Gen: A&Ox3, NAD at rest sitting in bed RLE: Dressing C/D/I, +f/e at ankle and MTPs, N/V intact. Calf soft, NT Labs: Laboratory Results - last 24 hr 05/08/11/18 05:21 05:21 Hgb 13.5 L Hct 39 L Plt Count 143 L MPV 7.6 Sodium 134 L Potassium 3.3 L Chloride 94 L Carbon Dioxide 33 H Anion Gap 7 BUN 14 Creatinine 1.01 Est GFR ( Amer) 92.1 Est GFR (Non-Af Amer) 76.1 BUN/Creatinine Ratio 13.9 Glucose 125 H Calcium 8.9 Assessment: POD#1 Right TKA Plan: PT/OT, WBAT RLE Cont eliquis for DVT ppx Cont current pain medications, possible d/c today or tomorrow if stable with PT
[2018-08-11] MEDS: oxyCODONE TAB* 5 MG TAB PO PRN (11:28)
[2018-08-11] MEDS: Cyclobenzaprine TAB* 10 MG PO PRN (21:38)
[2018-08-12 05:37] LABS: Hematocrit 39 % (42-52); Hemoglobin 13.1 g/dL (14.0-18.0); Mean Platelet Volume 7.5 fL (7.4-10.4); Platelet Count 151 10^3/uL (150-450)
[2018-08-12] MEDS: Acetaminophen TAB* 325 MG PO SCH (05:53)
[2018-08-12 07:57] VITALS: BP 157/74
[2018-08-12] MEDS: Metoprolol Succinate XL TAB* 50 MG PO SCH (08:41)
[2018-08-12] MEDS: Docusate CAP* 100 MG PO SCH (08:41)
[2018-08-12] MEDS: Hydrochlorothiazide TAB* 25 MG PO SCH (08:41)
[2018-08-12] MEDS: Potassium Chlor TAB* 20 MEQ TAB.ER PO SCH (08:41)
[2018-08-12] MEDS: Apixaban* 2.5 MG TAB PO SCH (08:42)
[2018-08-12] MEDS: amLODIPine TAB* 5 MG PO SCH (08:42)
[2018-08-12] MEDS: Pantoprazole TAB * 40 MG TAB PO SCH (08:42)
[2018-08-12] MEDS: Magnesium Hydroxide LIQ* 30 ML UDC PO SCH (08:47)
--- NOTE | 2018-08-12 09:45 | DS ---
Orthopedic Discharge Summary - Discharge Summary Date of Admission:08/10/18 Date of Discharge: 08/12/18 Date of Surgery: 08/10/18 Attending Orthopedic Provider: Dr. Turner Pre-operative Diagnosis: Arthritis right knee Operative Procedure: Right total knee arthroplasty Disposition of Patient: home Condition of Patient: stable History: ANISA ALVAREZ is a 58 year old M with years of increasingly severe right knee pain. Patient has failed conservative management and has elected to undergo a right total knee replacement Hospital Course: ANISA was admitted to [facility] on 08/10/18. Patient underwent a right total knee arthroplasty without complication followed by a brief recovery in PACU and transfer to the Short Stay Surgical Unit in stable condition. Our hospitalist service, physical therapy and occupational therapy also participated in this patients care. Post-op day 1: patient was alert and in no acute distress. Dressing was clean, dry and intact. Operative extremity dorsiflexion and plantarflexion intact, sensation intact to light touch distally, DP2+. Post-op day two: dressing was changed, incision was clean , dry and intact. Patient was deemed to be medically and orthopedically stable for discharge. Physical therapy goals were met. Home Medications Medication Instructions Recorded Confirmed Type Metoprolol Succinate XL TAB* 50 mg PO QAM 08/11/12 08/10/18 History [Toprol XL TAB*] Omeprazole CAP (NF) [Prilosec CAP* 20 mg PO QAM 08/11/12 08/10/18 History 20 MG] Hydrochlorothiazide TAB* 50 mg PO QAM 12/07/17 08/10/18 History [Hydrodiuril TAB*] Amlodipine Besylate [Norvasc] 5 mg PO QAM 07/31/18 08/10/18 History Apixaban* [Eliquis*] 2.5 mg PO BID #60 tab 08/12/18 Rx Docusate CAP* [Colace Cap*] 100 mg PO BID cap 08/12/18 Rx Patient states has pain meds at home, no additional rx requested Eliquis 2.5 mg BID for 1 month WBAT RLE Follow up Dr. Turner 10-14 days
[2018-08-13] MEDS ORDERED: Scopolamine PATCH Remove* 1 NOTE MISC PATCH OFF ONE (05:51)
== END 2018-08-12 11:00 | disposition home or self-care (01) | DRG 302 ==
LOC: AA 08:45 → SSU 18:28
PROVIDERS: ADMIT Orthopaedic Surgery Adult Reconstructive Orthopaedic Surgery; ATTEND Orthopaedic Surgery Adult Reconstructive Orthopaedic Surgery
PROC: 0SRC069 Replacement of Right Knee Joint with Oxidized Zirconium on Polyethylene Synthetic Substitute, Cemented, Open Approach (ICD-10-PCS; principal; 2018-08-10 11:45)
DX: M17.11 Unilateral primary osteoarthritis, right knee (principal); I10 Essential (primary) hypertension; K21.9 Gastro-esophageal reflux disease without esophagitis; M21.371 Foot drop, right foot; M25.461 Effusion, right knee; E78.00 Pure hypercholesterolemia, unspecified; M21.061 Valgus deformity, not elsewhere classified, right knee; G47.33 Obstructive sleep apnea (adult) (pediatric); E66.9 Obesity, unspecified; I25.10 Atherosclerotic heart disease of native coronary artery without angina pectoris; E78.5 Hyperlipidemia, unspecified; I08.1 Rheumatic disorders of both mitral and tricuspid valves; M25.761 Osteophyte, right knee; I77.819 Aortic ectasia, unspecified site; Z82.5 Family history of asthma and other chronic lower respiratory diseases; Z82.3 Family history of stroke; Z82.49 Family history of ischemic heart disease and other diseases of the circulatory system; Z72.89 Other problems related to lifestyle; Z68.34 Body mass index [BMI] 34.0-34.9, adult; Z87.891 Personal history of nicotine dependence
CPT/HCPCS: 36415; 80048; 85014; 85018; 85049; 88305; 88311; A9270-GY; C1776; J0360; J0690; J2250; J2704; J2795; J3010; J3490; J8540

== ENCOUNTER 2018-09-26 05:36 | Observation (INO) | payer OTHER ==
[2018-09-26 06:10] LABS: ABS Lymphocytes 0.8 10^3/ul (1.0-4.8); ABS Monocytes 0.7 10^3/ul (0-0.8); ABS Neutrophils 5.4 10^3/ul (1.5-7.7); Eosinophil % 0.4 %; Hematocrit 42 % (42-52); Hemoglobin 14.5 g/dL (14.0-18.0); Mean Corpuscular HGB Conc 35 g/dL (31-36); Mean Corpuscular Hemoglobin 33 pg (27-31); Mean Corpuscular Volume 94 fL (80-94); Mean Platelet Volume 6.6 fL (7.4-10.4); Nucleated Red Blood Cells % 0.1; Platelet Count 229 10^3/uL (150-450); Red Blood Count 4.43 10^6 /uL (4.18-5.48); Red Cell Distribution Width 15 % (10-15)
[2018-09-26] MEDS ORDERED: Pantoprazole IV* 40 MG IV ONE (06:21)
[2018-09-26] MEDS ORDERED: Aspirin 81 mg CHEW TAB* 81 MG TAB.CHEW PO ONE (06:21)
[2018-09-26] MEDS ORDERED: Metoclopramide IV* 5 MG/ML 2 ML VIAL IV SLOW PU ONE (06:22)
[2018-09-26] MEDS ORDERED: Morphine 4 MG/ML VIAL (1 ml) 4 MG/ML VIAL IV ONE (06:22)
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
[2018-09-26 06:27] LABS: Albumin 3.4 g/dL (3.2-5.2); BUN/Creatinine Ratio 13.4 (8-20); Calcium 8.9 mg/dL (8.6-10.3); EGFR African American 117.2 (>60); EGFR Non-African American 96.8 (>60); Globulin 3.4 g/dL (2-4); Total Bilirubin 0.9 mg/dL (0.2-1.0); Total Protein 6.8 g/dL (6.4-8.9); Troponin I 0.02 ng/mL (<0.04)
[2018-09-26] MEDS ORDERED: Magnesium Sulfate 2 GM IV* 2 GM/50 ML BAG IVPB ONE (06:34)
[2018-09-26] MEDS ORDERED: Potassium Chlor TAB* 20 MEQ TAB.ER PO ONE (06:34)
[2018-09-26] MEDS ORDERED: Thiamine IV* 100 MG, Folic Acid IV* 1 MG, Multiple Vitamin IV ADULT* 10 ML in NS 0.9% 1... IV ONE (06:36)
--- OUTSIDE RECORDS SUMMARY | 2018-09-26 06:55 | XMS REPORT | Continuity of Care Document ---
:1960 External Reference #:[id number] Author Name Queenie Thompson Care Team Providers Name Role Phone Julissa Lee MD Primary Care Physician Unavailable Payers Date Identification Numbers Payment Provider Subscriber Policy Number: [id number] Formerly [facility] Zeb Alvarez PayID: [id number] [place] [address] Problems Active Problems Provider Date Hypersomnia with sleep apnea Bryon Snowden M.D. 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 Onset: 10/31/2017 Acquired genu valgum Kelly Turner M.D. Onset: 10/31/2017 Localized, primary osteoarthritis of Kelly Turner M.D. 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 02/13/2013 Injection Vital Signs Date Vital Result Comment 09/18/2018 2:39pm Height 71 inches 5'11" Heart Rate 126 /min BP Systolic 120 mmHg BP Diastolic 80 mmHg Respiratory Rate 18 /min Body Temperature 99.5 F Pain Level 4 08/23/2018 8:58am Height 71 inches 5'11" Weight 243.00 lb BP Systolic 146 mmHg BP Diastolic 86 mmHg Body Temperature 99.5 F BMI (Body Mass Index) 33.9 kg/m2 07/31/2018 1:27pm Height 71 inches 5'11" Weight [...] H/L Range Note Type & Screen 07/31/2018 [facility] Patient Blood O Negative [address] [place] [address] [phone] Antibody Screen NEGATIVE CBC Auto Diff 04/14/2018 [facility] White Blood 7.6 10^3/uL N 3.5-10.[address] [place] [address] [phone] Red Blood Count 4.37 10^6/uL N 4.00-5.40 [...] Cells % 0 Comp Metabolic Panel 04/14/2018 [facility] Sodium 138 mmol/L N 135-[address] [place] [address] [phone] Potassium 3.9 mmol/L N 3.5-5.0 Chloride 99 [...] Egfr Non- 52.4 >60 Egfr 63.4 >60 2 Type & Screen 04/14/2018 [facility] Patient Blood Type O Negative [address] [place] [address] [phone] Antibody Screen NEGATIVE Inr/Protime 04/14/2018 [facility] Inr 0.90 N 0.77-1.[address] [place] [address] [phone] Laboratory test 04/14/2018 [facility] Partial 35.1 seconds N 26.0-36.[address] [place] [address] Time PTT [phone] Urine Culture And 04/04/2018 [facility] Urine SEE RESULT [address] [place] [address] [phone] Type & Screen 12/12/2017 [facility] Patient O Negative [address] [place] [place] [address] [phone] Antibody Screen NEGATIVE 1 PAIN IN RIGHT KNEE, EFFUSION, RIGHT KNEE, UNILATER 2 Because ethnic data is not always readily [...] 15-29 5 Kidney failure <15 (or dialysis) 3 SEE RESULT BELOW Name: ZEB ALVAREZ Brenton : [address]: Julissa Lee MD Acct: [id number] Unit: [id number] AGE: 57 Location: [facility] Re04/04/18 SEX: M Status: REG REF SPEC: [id number] YOON: 04/04/[address] [facility] [address]: Julissa Lee MD REQ: [id number] RECD: 04/04/18 STATUS: MIKAELA MCCRACKEN DR: Kelly Turner MD _ SOURCE: URINE SPDESC: ORDERED: Urine Culture COMMENTS: [id number] ferrer top urine vacutainer Copy Result to: Kelly TURNER ([id number]) Urine Source: Clean Catch Procedure Result Reported Site Urine Culture Final 04/05/18- 1630 ML No Growth (<1,000 CFU/mL) * ML - Main Lab . END OF REPORT DEPARTMENT OF PATHOLOGY, [address] [place] [address] Aristeo Saab M.D. Director [facility] # [id number] 4 PAIN IN RIGHT HIP, BILATERAL PRIMARY OSTEOARTHRITI Procedures Date Code Description Status 08/10/2018 31063 TKR Total Knee Replacement Completed 08/10/2018 31711 TKR Total Knee Replacement Completed 04/25/201846795 THR Total Hip Replacement Completed 04/25/201840819 THR Total Hip Replacement Completed 04/25/201816238 THR Total Hip Replacement Completed 01/16/2018 06882 ECHO Transthoracic, Real-Time 2D With Doppler And Color Completed Flow 01/16/2018 81111 ECHO Transthoracic, Real-Time 2D With Doppler And Color Completed Flow 12/22/2017 49302 EKG Tracing & Interpretation Completed 12/09/2017 82933 Treadmill Interp/Report Only Completed 12/09/2017 72564 Stress Test Supervsn W/Out I/R Completed 10/31/201781501 Inject/Drain Joint/Bursa Major W/O US Completed 02/07/2015 Inject/Drain Joint/Bursa Major W/O US Completed 09/18/2014 56862 Polysomnography Sleep Staging 4+ Parameters W/Cpap Completed 03/23/2013 90230 Rad Exam; Hip Unilat Comp Completed 03/23/2013 22976 Rad Exam; Pelvis Completed 02/13/2013 92740 Rad Exam; Knee Comp Completed 02/13/2013 61400 Rad Exam; Knee Comp Completed 02/13/2013 78003 Xray Knee 3 Views Completed 02/13/2013 96693 Xray Knee 3 Views Completed 02/13/2013 34908 Inject/Drain Joint/Bursa Major W/O US Completed Encounters Type Date Location Provider Dx Diagnosis Office Visit 08/10/2018 [facility] Evi Baldemar, I10 Essential ( primary) 12:52p Assoc,jessica Sanders hypertension Hospitalists I25.10 Athscl heart disease of tribe coronary artery w/o ang pctrs G47.33 Obstructive sleep apnea (adult) (pediatric) Office Visit 07/10/2018 3:15p [facility] Kelly Turner, M25.561 Pain in right Of C.M.A. M.D. 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 of upper limb, inc shldr R22.31 Localized swelling, mass and lump, right upper limb Office Visit 03/27/2018 [facility]ology [facility] Inna G47.33 Obstructive sleep 9:30a Sleep Services Of SERA Styles, RN, apnea (adult) [employer]visor [employer] WEIGHT AND BALANCE CONTROL AGENT-BC (pediatric) Z68.35 Body mass index (BMI) 35.0-35.9, adult Office Visit 03/03/2018 3:00p [facility] Kelly Turner, M25.551 Pain in right Of C.M.A. M.D. hip M16.51 Unilateral post-traumatic osteoarthritis, right hip Office Visit 02/23/2018 3:00p [place] E66.9 Obesity, Cardiology Of Tommy Cervantes unspecified [facility] G47.33 Obstructive sleep apnea (adult) (pediatric) I10 Essential (primary) hypertension Z01.810 Encounter for preprocedural cardiovascular examination I25.10 Athscl heart disease of tribe coronary artery w/o ang pctrs I77.819 Aortic ectasia, unspecified site M16.0 Bilateral primary osteoarthritis of hip E78.5 Hyperlipidemia, unspecified Office Visit 12/22/2017 3:40p [facility] Ton [facility]ron I10 Essential Tommy Cervantes (primary) hypertension R94.31 Abnormal electrocardiogram [ECG] [EKG] E78.4 Other hyperlipidemia E66.9 Obesity, unspecified G47.33 Obstructive sleep apnea (adult) (pediatric) Z01.810 Encounter for preprocedural cardiovascular examination Office Visit 12/01/2017 Pulmonology And Inna G47.33 Obstructive sleep 9:30a Sleep Services Of SERA Styles, RN, apnea (adult) [facility] WEIGHT AND BALANCE CONTROL AGENT-BC (pediatric) I10 Essential (primary) hypertension Z68.36 Body mass index (BMI) 36.0-36.9, adult Office Visit 11/07/2017 3:45p Orthopedic Kelly M17.0 Bilateral primary Services Of Tommy Turner osteoarthritis of C.M.A. knee M25.551 Pain in right hip M21.061 Valgus deformity, not elsewhere classified, right knee M16.0 Bilateral primary osteoarthritis of hip M16.51 Unilateral post-traumatic osteoarthritis, right hip Office Visit 10/31/2017 2:45p [facility] Kellybrandi Turner M25.562 Pain in left Of C.MNyasia Yusuf. knee M25.561 Pain in right knee M25.462 [...] Services Of SERA Styles RN, apnea (adult) [facility] JAGDEEP-BC (pediatric) Office Visit 08/05/2015 Pulmonology And Inna G47.33 Obstructive sleep 3:30p Sleep Services Of SERA Styles RN, apnea (adult) [facility] JAGDEEP-BC (pediatric) Office Visit 03/17/2015 Orthopedic [...] (adult) JAGDEEP Torres RN-JUSTIN (pediatric) Office Visit 08/08/2014 Pulmonology And Bryon SK. 780.53 Hypersomnia W/ 3:30p Sleep Services Of Tommy Snowden Sleep Apnea [facility] Unspecified Office Visit 03/23/2013 Orthopedic Kelly Turner, 715.16 Osteoarthrosis 9:30a Services Ricky Sanders Localized Prim C.M.A. Lower Leg 715.95 Osteoarthrosis Unspec Genlzd Or Localized Pelvic & Thigh Office Visit 02/13/2013 9:30a Orthopedic Kelly 715.16 Osteoarthrosis Services Of Tommy Turner Localized Prim Lower C.M.A. Leg Plan of Treatment Future Appointment(s):10/30/2018 3:15 pm - Kelly Turner M.D. at [facility].10/25/2018 2:30 pm - Sriram Dewitt M.D. at [facility]09/18/2018 - Kelly Turner M.D.Z96.651 Presence of right artificial knee jointFollow up:Follow up: 6 kthbwA27.561 Pain in right kneeM25.461 Effusion, right kneeZ47.1 Aftercare following joint replacement surgery
[2018-09-26] MEDS ORDERED: Ondansetron INJ* 2 MG/ML VIAL IV PRN (08:40)
[2018-09-26] MEDS ORDERED: Acetaminophen TAB* 325 MG PO PRN (08:40)
[2018-09-26] MEDS ORDERED: Atorvastatin* 20 MG TAB PO ONE (09:09)
[2018-09-26] MEDS ORDERED: NS 0.9% 1000 ML** 1,000 ML IV ONE (09:10)
[2018-09-26] MEDS: Hydrochlorothiazide TAB* 25 MG PO SCH (09:15)
[2018-09-26] MEDS: amLODIPine TAB* 5 MG PO SCH (09:15)
[2018-09-26 09:24] LABS: HDL Cholesterol 72.3 mg/dL
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
[2018-09-26] MEDS ORDERED: Famotidine IV* 10 MG/ML 2 ML (20 mg) IV SLOW PU ONE (12:17)
[2018-09-26] MEDS: Pantoprazole TAB * 40 MG TAB PO SCH (12:58)
--- NOTE | 2018-09-26 16:55 | CONS ---
CC: Dr. Julissa Lee * CARDIOLOGY CONSULTATION: DATE OF CONSULT: 09/26/18 INDICATION FOR CONSULTATION: Chest pain. HISTORY OF PRESENT ILLNESS: The patient is a 58-year-old gentleman with a history of coronary artery disease, admitted to the hospital with chest pain. The patient states that he awoke at 3 in the morning with chest pain. He described it as a heaviness in the center of his chest. He denied any radiation of his discomfort. He denied any nausea or vomiting or sweating associated with his discomfort. He said he waited about 2 hours and ultimately the discomfort did not go away, he awoke his and they came to the emergency room. On arrival to the emergency room, his EKG showed normal sinus rhythm with nonspecific T-wave abnormalities. His troponin levels were normal. He was admitted to the hospital for evaluation. The patient did have a cardiology workup in November of 2017. At that time, his nuclear stress test was reportedly abnormal with a small area of ischemia to the apex. I personally reviewed the images and saw no evidence of ischemia. He had looked like normal perfusion of his myocardium. Because it was interpreted as abnormal, the patient underwent a coronary CTA of his chest up in [place]. I have the report itself. The report does show elevated calcium score in the LAD. It described less than 50% stenosis to the left main artery, a greater than 50% stenosis in the LAD. The interpretation was highly suspicious for at least 1 area of critical stenosis in the LAD. The patient has been treated medically since then. Since then, he has undergone at least 2 surgeries without incident. PAST MEDICAL HISTORY: Significant for hypertension, gastroesophageal reflux disease, sleep apnea, osteoarthritis. He has had 2 knee surgeries. He has a history of coronary artery disease as described above. OUTPATIENT MEDICATIONS: 1. Eliquis 2.5 mg b.i.d. due to his knee surgeries, just finished this week. 2. Metoprolol 50 mg once a day. 3. Amlodipine 5 mg a day. 4. Hydrochlorothiazide 50 mg a day. 5. Omeprazole 20 mg a day. ALLERGIES: The patient is listed as no drug allergies; however, the patient has been on statin medications in the past according to his and had a reaction of elevated liver enzymes. I do not have documentation of that. FAMILY HISTORY: Father had a myocardial infarction before the age of 60. He of a large myocardial infarction. Mother has history of COPD and heart failure. SOCIAL HISTORY: The patient is currently on short-term disability. He lives with his . He smokes 2-pack of cigarettes a day. He drinks at least 6 to 8 alcohol drinks a day. He denies any recreational drugs. REVIEW OF SYSTEMS: Negative for fevers or chills. Negative for changes in bowel or bladder habits. Negative for change in weight. Other 12-point review is unremarkable. PHYSICAL EXAM: Height is 5 feet 11 inches, weight is 143 pounds, temperature 98.7, heart rate is 90, blood pressure 146/86, respiratory rate is 17, oxygen saturation 97% on room air. Sclerae anicteric. Oropharynx is pink without erythema. Carotids are 2+ without bruits. JVD is normal. Thyroid is normal. Cardiac Exam: S1, S2 without any murmurs, rubs, or gallops. Lungs are clear to auscultation bilaterally. There is no dullness to percussion. Abdomen is obese , soft, nontender, nondistended with normoactive bowel sounds. Extremities show no edema. He has 2+ pulses throughout. The patient is awake, alert, and oriented. He moves all 4 extremities equally. LABORATORY DATA: CBC within normal limits. Chemistries within normal limits. Troponins are negative x3. AST and ALT are normal. The patient did have a mildly elevated AST on 12/03/17 at 40. I do not have any evidence of higher liver function tests. His ALT has been normal since 2010. IMPRESSION AND PLAN: This is a 58-year-old gentleman, who is admitted to the hospital with chest pain. The patient has known coronary artery disease based on the CT angiogram done in [place]. Again, the CTA does show a 50% stenosis to the left main and greater than 50% stenosis to the LAD with a very high calcium score of 813. The patient is on amlodipine and beta-efren. The patient is not on an aspirin a day. The patient should be started on an aspirin a day. The patient is not on statin therapy as he has had a reaction to it in the past. For now, my recommendation is the patient undergo a repeat stress test. His last stress test was more than 6 months ago. He does have known coronary artery disease to his LAD. If his stress test shows significant ischemia to his anterior wall, I would suggest cardiac catheterization. If he has normal perfusion throughout the myocardium, then I would continue maximum medical therapy. Again, the patient is not on a statin therapy. I would strongly consider trying a different statin therapy with close followup of his liver function tests. [id number]/[facility] #: [id number] [facility] HOSPITALMolina
[2018-09-27 06:33] LABS: ABS Lymphocytes 1.5 10^3/ul (1.0-4.8); ABS Monocytes 0.5 10^3/ul (0-0.8); Eosinophil % 0.9 %; Hematocrit 41 % (42-52); Hemoglobin 14.3 g/dL (14.0-18.0); Mean Corpuscular HGB Conc 35 g/dL (31-36); Mean Corpuscular Hemoglobin 33 pg (27-31); Mean Corpuscular Volume 95 fL (80-94); Mean Platelet Volume 7.1 fL (7.4-10.4); Nucleated Red Blood Cells % 0.1; Platelet Count 217 10^3/uL (150-450); Red Blood Count 4.33 10^6 /uL (4.18-5.48); Red Cell Distribution Width 15 % (10-15); White Blood Count 5.1 10^3/uL (3.5-10.8)
[2018-09-27 06:56] LABS: BUN/Creatinine Ratio 17.9 (8-20); Calcium 9.1 mg/dL (8.6-10.3); EGFR Non-African American 94.2 (>60); Potassium 3.1 mmol/L (3.5-5.0)
[2018-09-27] MEDS: Pantoprazole TAB * 40 MG TAB PO SCH (07:22)
[2018-09-27] MEDS: Hydrochlorothiazide TAB* 25 MG PO SCH (07:22)
[2018-09-27] MEDS: amLODIPine TAB* 5 MG PO SCH (07:23)
[2018-09-27] MEDS ORDERED: Potassium Chlor TAB* 20 MEQ TAB.ER PO ONE (07:28)
[2018-09-27] MEDS ORDERED: Aminophylline IV* 25 MG/ML 10 ML VIAL ONE (08:17)
[2018-09-27] MEDS ORDERED: Regadenoson* 0.4 MG/5 ML SYRINGE ONE (08:17)
[2018-09-27] MEDS ORDERED: Folic Acid IV* 1 MG/0.2 ML SYRINGE IV SCH (09:00)
--- NOTE | 2018-09-27 10:24 | PN ---
Subjective Date of Service: 09/27/18 Interval History: HD #2 on 09/27 58 M PMH HTN GERD ETOH use d/o with known CAD who presented with acute CP waking him from sleep, pt also had been drinking ETOH a bit the night before, thought it was heartburn but presented to hospital anyways Troponin remained flat, labs otherwise showing e/o ETOH Pt has sig CAD hx, repeat stress this AM was low risk This morning pt is pain free no complaints would like to go home, cardiology titrating meds, he has tolerated Prava in the past. Objective Active Medications: Acetaminophen (Tylenol Tab*) 650 mg PO Q6H PRN PRN Reason: FEVER/PAIN Amlodipine Besylate (Norvasc Tab*) 5 mg PO [facility] Last Admin: 09/27/18 07:23 Dose: 5 mg Folic Acid (Folic Acid Iv 1 Mg*) 1 mg IV DAILY [facility] Hydrochlorothiazide (Hydrodiuril Tab*) 50 mg PO [facility] Last Admin: 09/27/18 07:22 Dose: 50 mg Ondansetron HCl (Zofran Inj*) 4 mg IV Q6H PRN PRN Reason: NAUSEA Pantoprazole Sodium (Protonix Tab*) 40 mg PO [facility] Last Admin: 09/27/18 07:22 Dose: 40 mg Vital Signs - 8 hr 09/27/18 03:29 Temperature 98.3 F Pulse Rate 94 Respiratory 15 Rate Blood Pressure 155/88 (mmHg) O2 Sat by Pulse 96 Oximetry Oxygen Devices in Use Now: CPAP Appearance: Pleasant man in NAD Eyes: No Scleral Icterus Ears/Nose/Mouth/Throat: NL Teeth, Lips, Gums, Clear Oropharnyx Neck: NL Appearance and Movements; NL JVP, Trachea Midline Respiratory: Symmetrical Chest Expansion and Respiratory Effort, Clear to Auscultation Cardiovascular: NL Sounds; No Murmurs; No JVD, RRR Abdominal: NL Sounds; No Tenderness; No Distention, No Hepatosplenomegaly Lymphatic: No Cervical Adenopathy Extremities: No Edema Skin: No Rash or Ulcers Neurological: Alert and Oriented x 3 Result Diagrams: 09/27/18 06:13 09/27/18 06:13 Additional Lab and Data: Lab Results 09/26/18 09/26/18 Range/Units 06:01 06:01 WBC 7.0 (3.5-10.8) 10^3/uL RBC 4.43 (4.18-5.48) 10^6 /uL Hgb 14.5 (14.0-18.0) g/dL Hct 42 (42-52) % MCV 94 (80-94) fL MCH 33 H (27-31) pg MCHC 35 (31-36) g/dL RDW 15 (10-15) % Plt Count 229 (150-450) 10^3/uL MPV 6.6 L (7.4-10.4) fL Neut % (Auto) 77.7 % Lymph % (Auto) 11.0 % [place] % (Auto) 10.4 % Eos % (Auto) 0.4 % Baso % (Auto) 0.5 % Absolute Neuts (auto) 5.4 (1.5-7.7) 10^3/ul Absolute Lymphs (auto) 0.8 L (1.0-4.8) 10^3/ul Absolute Monos (auto) 0.7 (0-0.8) 10^3/ul Absolute Eos (auto) 0.0 (0-0.6) 10^3/ul Absolute Basos (auto) 0.0 (0-0.2) 10^3/ul Absolute Nucleated RBC 0.0 10^3/ul Nucleated RBC % 0.1 INR (Anticoag Therapy) 1.00 (0.82-1.09) Assess/Plan/Problems-Billing Assessment: 58 M PMH HTN GERD ETOH use d/o with known CAD who presented with acute CP, on observaton for r/o ACS - Patient Problems (1) Chest pain Current Visit: Yes Status: Acute Code(s): R07.9 - CHEST PAIN, UNSPECIFIED SNOMED Code(s): 93522501 Comment: - Resolved, appears non cardiac in nature, has high risk CAD and needs better 03/28 prevention (2) CAD (coronary artery disease) Current Visit: No Status: Acute Code(s): I25.10 - ATHSCL HEART DISEASE OF [place] CORONARY ARTERY W/O ANG PCTRS SNOMED Code(s): 03239985 Comment: - Continue metoprolol, resume asa as apixaban now compelted s/p procedure, rx statin on d/c, prava 20. (3) GERD (gastroesophageal reflux disease) Current Visit: No Status: Acute Code(s): K21.9 - GASTRO-ESOPHAGEAL REFLUX DISEASE WITHOUT ESOPHAGITIS SNOMED Code(s): 359997111 Comment: - Continue PPI (4) HTN (hypertension) Current Visit: No Status: Acute Code(s): I10 - ESSENTIAL (PRIMARY) HYPERTENSION SNOMED Code(s): 82076544 Comment: - BP stable, restart BB (5) NAKIA (obstructive sleep apnea) Current Visit: No Status: Acute Code(s): G47.33 - OBSTRUCTIVE SLEEP APNEA ( ADULT) (PEDIATRIC) SNOMED Code(s): 93095471 Comment: - Using CPAP intermittenly at home (6) Status post total hip replacement, right Current Visit: No Status: Acute Code(s): Z96.641 - PRESENCE OF RIGHT ARTIFICIAL HIP JOINT SNOMED Code(s): 848686190635 Comment: - NO active issues (7) Alcohol use disorder Current Visit: Yes Status: Acute Code(s): EFL7978 - SNOMED Code(s): 9365104 Comment: - Long discussion about cessation, he is looking into counsleing (8) DVT prophylaxis Current Visit: Yes Status: Acute Code(s): Z29.9 - ENCOUNTER FOR PROPHYLACTIC MEASURES, UNSPECIFIED SNOMED Code(s): 356759779 Comment: - DC otday (9) Full code status Current Visit: Yes Status: Acute Code(s): Z78.9 - OTHER SPECIFIED HEALTH STATUS SNOMED Code(s): 927365806 Status and Disposition: Can be d/c, needs FU with Dr. Dewitt
[2018-09-27] MEDS ORDERED: Aspirin 81 mg CHEW TAB* 81 MG TAB.CHEW PO SCH (11:00)
[2018-09-27] MEDS ORDERED: Metoprolol Succinate XL TAB* 25 MG PO SCH (11:00)
[2018-09-27] MEDS ORDERED: Metoprolol Succinate XL TAB* 50 MG PO SCH (11:00)
--- NOTE | 2018-09-27 11:07 | PN ---
<Prudence Young - Last Filed: 09/27/18 11:54> Subjective Date of Service: 09/27/18 - c/o chest pain with known moderatre LAD lesion Interval History: No events last night, no recurrent c/o chest pain since presentation, no c/o dizziness, sob or palpitations. patient had stress test today. Medications Active Medications: Acetaminophen (Tylenol Tab*) 650 mg PO Q6H PRN PRN Reason: FEVER/PAIN Amlodipine Besylate (Norvasc Tab*) 5 mg PO QAM [facility] Last Admin: 09/27/18 07:23 Dose: 5 mg Aspirin (Aspirin 81 Mg Chew Tab*) 81 mg PO DAILY [facility] Atorvastatin Calcium (Lipitor*) 10 mg PO BEDTIME [facility]; Protocol Folic Acid (Folic Acid Iv 1 Mg*) 1 mg IV DAILY [facility] Metoprolol Succinate (Toprol Xl Tab*) 75 mg PO QAM [facility] Ondansetron HCl (Zofran Inj*) 4 mg IV Q6H PRN PRN Reason: NAUSEA Pantoprazole Sodium (Protonix Tab*) 40 mg PO QAM [facility] Last Admin: 09/27/18 07:22 Dose: 40 mg Objective Vital Signs: Temp Pulse Resp BP Pulse Ox 99.7 F 82 16 137/99 97 09/27/18 07:27 09/27/18 07:27 09/27/18 07:27 09/27/18 07:27 09/27/18 07:27 Oxygen Devices in Use Now: None, CPAP Appearance: sitting in chair with at bedside, offers no complaints, A+O x3 Ears/Nose/Mouth/Throat: NL Teeth, Lips, Gums, Mucous Membranes Moist Neck: NL Appearance and Movements; NL JVP Respiratory: Symmetrical Chest Expansion and Respiratory Effort, Clear to Auscultation Cardiovascular: NL Sounds; No Murmurs; No JVD, RRR, No Edema Extremities: No Edema Skin: No Rash or Ulcers Neurological: Alert and Oriented x 3 Lines/Tubes/Other Access: Clean, Dry and Intact Peripheral IV Laboratory Results: 09/27/18 06:13 09/27/18 06:13 INR (Anticoag Therapy) 1.00 (0.82-1.09) 09/26/18 06:01 Total Bilirubin 0.90 mg/dL (0.2-1.0) 09/26/18 06:01 AST 25 U/L (13-39) 09/26/18 06:01 ALT 19 U/L (7-52) 09/26/18 06:01 Alkaline Phosphatase 74 U/L (34-104) 09/26/18 06:01 Total Protein 6.8 g/dL (6.4-8.9) 09/26/18 06:01 Albumin 3.4 g/dL (3.2-5.2) 09/26/18 06:01 Globulin 3.4 g/dL (2-4) 09/26/18 06:01 Albumin/Globulin Ratio 1.0 (1-3) 09/26/18 06:01 Triglycerides 107 mg/dL 09/26/18 06:01 Cholesterol 251 mg/dL 09/26/18 06:01 LDL Cholesterol 157 mg/dL 09/26/18 06:01 HDL Cholesterol 72.3 mg/dL 09/26/18 06:01 09/26/18 09/26/18 09/26/18 06:01 09:22 13:36 Troponin I 0.02 0.02 0.02 Laboratory Results - last 24 hr 09/26/18 09/26/18 09/27/18 06:01 13:36 06:13 WBC 5.1 RBC 4.33 Hgb 14.3 Hct 41 L MCV 95 H MCH 33 H MCHC 35 RDW 15 Plt Count 217 MPV 7.1 L Neut % (Auto) 59.4 Lymph % (Auto) 30.0 [place] % (Auto) 8.9 Eos % (Auto) 0.9 Baso % (Auto) 0.8 Absolute Neuts (auto) 3.0 Absolute Lymphs (auto) 1.5 Absolute Monos (auto) 0.5 Absolute Eos (auto) 0.0 Absolute Basos (auto) 0.0 Absolute Nucleated RBC 0.0 Nucleated RBC % 0.1 Sodium Potassium Chloride Carbon Dioxide Anion Gap BUN Creatinine Est GFR ( Amer) Est GFR (Non-Af Amer) BUN/Creatinine Ratio Glucose Hemoglobin A1c 5.5 Calcium Troponin I 0.02 09/27/18 06:13 WBC RBC Hgb Hct MCV MCH MCHC RDW Plt Count MPV Neut % (Auto) Lymph % (Auto) [place] % (Auto) Eos % (Auto) Baso % (Auto) Absolute Neuts (auto) Absolute Lymphs (auto) Absolute Monos (auto) Absolute Eos (auto) Absolute Basos (auto) Absolute Nucleated RBC Nucleated RBC % Sodium 135 Potassium 3.1 L Chloride 94 L Carbon Dioxide 32 Anion Gap 9 BUN 15 Creatinine 0.84 Est GFR ( Amer) 114.0 Est GFR (Non-Af Amer) 94.2 BUN/Creatinine Ratio 17.9 Glucose 119 H Hemoglobin A1c Calcium 9.1 Troponin I Diagnostic Imaging: Patient Name: ANISA ALVAREZ Medical Record#: [id number] Ordering Physician: Sriram Dewitt MD Acct.#: [id number] : 1960 Age: 58 Sex: M Location: [address] [place] [address]/TELEMETRY Exam Date: 09/27/18705 ADM Status: ADM Nadia Order Information: NUCLEAR CARDIAC STRESS TEST Accession Number: [id number] CPT: 97215 INDICATION: Chest pain. COMPARISON: Comparison is made with a prior myocardial perfusion study from December 09, 2017. Technique: A single day myocardial perfusion stress study was performed. Initially the resting study was performed. The patient was given an intravenous injection of 10.7 mCi of technetium 99m tetrofosmin and and the heart was imaged in multiple projections. The patient returned later in the day and under the direction of Dr. Paulino, the patient was given intervenous injection of Lexiscan. Subsequently the patient was given intravenous injection of 25.9 mCi of technetium 99m tetrofosmin and the heart was imaged in multiple projections. Images were reconstructed in the axial, sagittal and coronal planes and in a 3-D format. The patient was unable to be positioned for the attenuation corrected images limiting the study. FINDINGS: The left ventricular ejection fraction is calculated to be 65%. No significant focal myocardial perfusion defects are seen after stress or at rest. The transient ischemic dilatation ratio is 0.97 which is within normal limits. IMPRESSION: NO EVIDENCE FOR INFARCT OR ISCHEMIA. ASSESSMENT: Low risk. Based on imaging criteria from ACC/AHA 2002 Guideline Update for the Management of Patients With Chronic Stable Angina Table 23. Noninvasive Risk Stratification. <Electronically signed by Adria Murray MD in [place]> 09/27/18945 Dictated By: Adria Murray MD Dictated Date/Time: 09/27/18945 Transcribed Date/Time: 09/27/18939 Copy to: CC:Anastasiya Fontaine MD; Sriram Dewitt MD; Julissa Lee MD Imaging - [facility] Imaging - [facility] Imaging - [facility] [address] [facility] This report is only to be considered final once signed by the Provider(s) as displayed in the "<Electronically Signed by >" field (s). Absence of a signature indicates the report is in a draft status and still needs to be finalized. In the event this document was created by someone other than the signing Provider, the individual initiating the document will be listed in the "Entered by:" or "Dictated by:" rodriguez. 1 of 2 EKG Data: telemetry reviewed Sinus rhythm with PVCs and period of ventricular trigeminy around 1030. NO VT. Assessment/Plan #1 atypical c/o chest pain 09/26/2018. Patient had a continuous 6 hour episode with negative enzymes. He has a known moderate LAD lesion. He underwent lexiscan stress test today. Per [facility] report. no ischemia noted. LVEF 65%. Pain free since yesterday. Will start ASA 81/day, Pravastatin 20mg/day, Increase Toprol to 75mg/day and continue Norvasc therapy. Patient to f/u with Dr. Dewitt in 7-14 days. #2 h/o transaminities 07/14/2018 per PCP whom I spoke with AST-174, ALT 148 at that time after Pravastatin was increased to 40mg/day. Prior to that AST/ALT were normal on 20mg dose. He has a h/o heavy alcohol consumption. I would recommend starting Pravastatin at 20mg/day and closely follow FLT. I updated PCP 's office of recommendation and they are to contact patient so he is closely followed. Goal LDL < 70 given h/o CAD. #3 h/o HTN; BP stable. He has hypokalemia unclear if HCTZ causing or heavy consumption of ETOH is contributing. Will optimize Bblocker given VPCs and resting HR> 50-60 which is goal for CAD and stop HCTZ therapy. Continue Norvasc #4 Disposition pending course. Will speak with Dr. San about plan of care. Attending: Tatum San <Tatum San - Last Filed: 09/27/18 13:46> Medications Active Medications: Acetaminophen (Tylenol Tab*) 650 mg PO Q6H PRN PRN Reason: FEVER/PAIN [facility]ml[facility]*) [facility] Last Admin: 09/27/18 07:23 Dose: 5 mg Aspirin (Aspirin 81 Mg Chew Tab*) 81 mg PO DAILY [facility] Last Admin: 09/27/18 12:11 Dose: 81 mg Atorvastatin Calcium (Lipitor*) 10 mg PO BEDTIME [facility]; Protocol Folic Acid (Folic Acid Iv 1 Mg*) 1 mg IV DAILY [facility] Last Admin: 09/27/18 12:06 Dose: Not Given Metoprolol Succinate ([facility]rol Xl Tab*) [facility] [place] Last Admin: 09/27/18 12:12 Dose: 75 mg Ondansetron HCl (Zofran Inj*) 4 mg IV Q6H PRN PRN Reason: NAUSEA Pantoprazole Sodium (Protonix Tab*) [facility] [place] [place] Last Admin: 09/27/18 07:22 Dose: 40 mg Objective Vital Signs: Temp Pulse Resp BP Pulse Ox 98.8 F 85 16 142/80 96 09/27/18 11:23 09/27/18 11:23 09/27/18 11:23 09/27/18 11:23 09/27/18 11:23 Laboratory Results: 09/27/18 06:13 09/27/18 06:13 INR (Anticoag Therapy) 1.00 (0.82-1.09) 09/26/18 06:01 Total Bilirubin 0.90 mg/dL (0.2-1.0) 09/26/18 06:01 AST 25 U/L (13-39) 09/26/18 06:01 ALT 19 U/L (7-52) 09/26/18 06:01 Alkaline Phosphatase 74 U/L (34-104) 09/26/18 06:01 Total Protein 6.8 g/dL (6.4-8.9) 09/26/18 06:01 Albumin 3.4 g/dL (3.2-5.2) 09/26/18 06:01 Globulin 3.4 g/dL (2-4) 09/26/18 06:01 Albumin/Globulin Ratio 1.0 (1-3) 09/26/18 06:01 Triglycerides 107 mg/dL 09/26/18 06:01 Cholesterol 251 mg/dL 09/26/18 06:01 LDL Cholesterol 157 mg/dL 09/26/18 06:01 HDL Cholesterol 72.3 mg/dL 09/26/18 06:01 09/26/18 09/26/18 09/26/18 06:01 09:22 13:36 Troponin I 0.02 0.02 0.02 Assessment/Plan The above reviewed, the nuclear images reviewed personally. I agree as above with medical management for mild to moderate CAD. I agree with medication and lifestyle adjustments above. GERD from EtOH could cause non cardiac CP. Amylase negative, no evidence of pancreatitis. On PPI.
[2018-09-27 12:21] VITALS: BP 142/80
--- NOTE | 2018-09-27 14:41 | DS ---
CC: Dr. Julissa Lee; Dr. Sriram Dewitt DISCHARGE SUMMARY: DATE OF ADMISSION: 09/26/18 DATE OF DISCHARGE: 09/27/18 PRIMARY CARE PROVIDER: Julissa Lee MD. DIRECTOR MOTION PICTURE: Sriram Dewitt MD. PRIMARY DIAGNOSIS: Chest pain. SECONDARY DIAGNOSES: 1. Coronary artery disease 2. Alcohol use disorder. 3. Hypertension. 4. Obstructive sleep apnea. 5. Gastroesophageal reflux disease. 6. Hyperlipidemia. 7. Status post recent total hip replacement. 8. Total knee replacement on right within the last 6 months. MEDICATIONS ON DISCHARGE: 1. Metoprolol succinate 75 mg p.o. q. a.m. 2. Aspirin 81 mg p.o. daily. 3. Amlodipine 5 mg p.o. q. a.m. 4. Pravastatin 20 mg p.o. daily. 5. Omeprazole 20 mg p.o. q. a.m. 6. Amlodipine 5 mg. 7 Naltrexone 50mg PO daily PRN for craving Changes to medication on this hospitalization include: 1. Addition of pravastatin 20 mg p.o. daily. 2. Discontinuation of apixaban 2.5 mg p.o. b.i.d. for prophylaxis in the setting of recent surgery. 3. Discontinuation of metoprolol 50 mg p.o. daily. 4. Starting metoprolol succinate 75 mg p.o. daily. 5. Starting of aspirin 81 mg p.o. daily. 6. Discontinuation of hydrochlorothiazide 50 mg p.o. daily. 7. Addition of Naltrexone 50mg PO daily for craving HISTORY OF PRESENT ILLNESS AND HOSPITAL COURSE: This is a 58-year-old male with past medical history of alcohol use disorder, drinking 8 to 10 drinks per day, known coronary artery disease seen on coronary artery CT done at [facility] in March 2018 in preparation for total hip and total knee replacements, with known greater than 50% stenotic lesion of proximal LAD, hypertension, hyperlipidemia, sleep apnea, intermittently compliant on CPAP, who presented with acute onset of chest pain early in the morning on 09/26/18. The patient reports that he had been drinking quite a bit the night before and in the context of doing yard work was not staying very hydrated, and fell asleep laying flat. He woke up abruptly at 3 a.m. with heartburn-like symptoms and a dull ache substernally that radiated to the left shoulder. He also has associated dyspepsia and because of his history of known coronary artery disease he decided to present to the hospital at the urging of his . In the emergency room, his vital signs were stable. An EKG was done, which showed sinus rhythm with few a VPCs, but no S-T changes or T-wave changes. His labs were done, which were largely unremarkable, with first troponin at 0.02. Case was reviewed with Cardiology and because of his high-risk lesion he was admitted for rule out ACS. His last negative stress test was in November 2017. His hospital course by problem is as follows: 1. Chest pain: The patient was admitted to telemetry unit. Cardiology was consulted, who ultimately made the decision to further risk stratify the patient by nuclear medicine stress test. He was also treated for his chest pain symptomatically with treatment of GERD-like symptoms, which improved his chest pain dramatically within the first 4 to 6 hours of hospitalization, with famotidine, fluids, Zofran, and bowel rest. On hospital day 2 he underwent stress test which was low risk. Cardiology did feel that he was not optimized from a primary CAD standpoint and medications changes were made as per above and below. 2. Alcohol use disorder: The patient has admitted alcohol use disorder and does show contemplative signs towards change in behaviors. He was offered counseling groups, medication-assisted therapy for alcohol use disorder, all of which he initially declined but then decided to opt for Naltrexone. He and his are considering counseling. He had been a part of [employer] in the past, which he said had mixed success, although he would be willing to return. His chest pain was almost certainly a sequelae of his alcohol use disorder and consistent with mild alcohol withdrawal and his family used this as an opportunity to educate him about the dangers of his drinking behavior as well as negative effect on his known heart disease. 3. Coronary artery disease: The patient has known greater than 50% stenotic lesion in proximal LAD. He has not had cath done. He has had 2 negative stress test in the last 12 months. He has not tolerated the statin in the past , but will be discharged on pravastatin 20, which is last trial he had done. He had mild transaminitis as a result of his pravastatin usage as an outpatient and that was at 40 mg and thus, Cardiology deemed 20 mg trial would be reasonable. He has been on Apixaban 2.5 mg p.o. b.i.d. for DVT prophylaxis in the setting of recent right TKR. This will be discontinued as prophylaxis month is completed and should be restarted on aspirin 81 mg p.o. daily. The patient was uptitrated on his metoprolol from 50 mg succinate to 75 mg succinate as we are discontinuing hydrochlorothiazide in the setting of persistent hypokalemia. 4. Hypertension: The patient's pressures remain stable, although he has persistent hypokalemia in the context of alcohol use disorder as well as HCTZ use. Cardiology recommended discontinuing HCTZ use, up-titrating metoprolol, and close followup with primary care and Cardiology, which was arranged on discharge. 5. Sleep apnea: The patient is intermittently compliant on CPAP, which is contributing to his uncontrolled hypertension at times. 6. Hyperlipidemia, as per above: Pravastatin restarted. LABS AND STUDIES: EKG was done which showed normal sinus rhythm, 09/26/18. Chest x-ray done showed no intrathoracic cardiopulmonary disease. Nuclear medicine scan was done on 09/27/18, which showed low-risk for ischemia. Labs on day of discharge are sodium 135, potassium of 3.1, chloride 94, carbon dioxide 32, creatinine 0.84, BUN 15, glucose 119. An A1c was done, is 5.5. LDL cholesterol was 157, not on treatment. Troponin x3 was 0.02. CONSULTANTS DURING THIS HOSPITALIZATION: Included Cardiology. ITEMS TO FOLLOW UP STATUS POST DISCHARGE: 1. Coronary artery disease: Primary prevention optimization. The patient was started on statin, restarted on aspirin, uptitrated on beta-efren, and all these changes can be followed up with his primary care. 2. Alcohol use disorder: The patient has self-admitted alcohol use disorder with daily-dependent drinking habit, [id number] in nature. We strongly suggest complete cessation, counseling, and possible return to a meaningful group. We did offer medication-assisted therapy for cravings which he was willing to try. 3. Hypertension: The patient's hypertension medications were changed in the context of this hospitalization and on recommendation of Cardiology, his HCTZ was discontinued, metoprolol was uptitrated, and amlodipine was continued. The patient may need further control with KRISTYN inhibitors or possible further up- titration of current medications that he is already on. He did show signs of hypokalemia with HCTZ at a dose of 50, considered dose reduction to 25. Optimal blood pressure goals were still not being met in the hospital. On the day of discharge, the patient is tolerating diet, voiding freely, ambulating, and eager to be discharged. A physical exam was performed, which can be found on the daily progress notes. DISPOSITION: At the time of discharge is stable to return home. TIME SPENT: Forty-five minutes were spent on planning of this discharge, with over half of that spent directly at the bedside with the patient, providing direct patient care. Plan of care was discussed with the patient and family who agreed with discharge to home. Followup with primary care provider and managed care director, Dr. Sriram Dewitt. They had no further questions. If there are any questions from providers about the care of this patient during this hospitalization, please do not hesitate to reach out. [id number]/CPS #: [id number]
[2018-09-27] MEDS ORDERED: Atorvastatin* 10 MG TAB PO SCH (21:00)
== END 2018-09-27 13:20 | disposition home or self-care (01) ==
LOC: ED 05:36 → MEDTELE 10:08
PROVIDERS: ADMIT Internal Medicine; ATTEND Internal Medicine
DX: R07.89 Other chest pain (principal); I25.10 Atherosclerotic heart disease of native coronary artery without angina pectoris; F10.10 Alcohol abuse, uncomplicated; I10 Essential (primary) hypertension; G47.33 Obstructive sleep apnea (adult) (pediatric); K21.9 Gastro-esophageal reflux disease without esophagitis; E78.5 Hyperlipidemia, unspecified; Z96.649 Presence of unspecified artificial hip joint; Z96.651 Presence of right artificial knee joint; Z79.82 Long term (current) use of aspirin; Z79.899 Other long term (current) drug therapy; Z79.01 Long term (current) use of anticoagulants
CPT/HCPCS: 36415; 71045; 78452; 80048; 80053; 80061; 82150; 83036; 83690; 84484; 85025; 85610; 93005; 93017; 96365; 96375; 99284; A9270-GY; A9502; G0378; J0280; J2270; J2765; J2785; J3411; J3475